=== PATIENT | female | born 1990 | race African-American/Black ===

== ENCOUNTER 2018-01-27 11:14 | Emergency (ER) | payer MEDICAID ==
[~2018-01-27] VITALS: Ht 160 cm; Wt 163.3 kg
[~2018-01-27 11:14] MED LIST: IBUPROFEN600 MG ORAL; KEFLEX500 MG ORAL; NKM
[2018-01-27 11:24] VITALS: BP 124/71
[2018-01-27] MEDS ORDERED: Lidocaine 1% MPF 10mg/ml 5ml INJ ONE (12:15)
[2018-01-27] MEDS ORDERED: DOXYCYCLINE MO100 MG ORAL (13:14)
[2018-01-27 13:21] VITALS: BP 120/68
--- NOTE | 2018-01-28 14:19 | Emergency Room Report ---
History of Present Illness General Chief Complaint: General Complaint Source: Patient Present Illness HPI Patient is a 27-year-old female who presented after increased vaginal discharge and leg rash. Patient reported having increased symptoms after recent sexual partner had been diagnosed with herpes. Patient states that she had been having increased discomfort with intercourse. She denies any genital lesions. She states that she had been having increased vaginal discharge. She denies any fever. Allergies: Coded Allergies: No Known Allergies (Unverified , 04/15/14) Patient History Past Medical History: see triage record Past Surgical History: unable to obtain Review of Systems All Other Systems: negative except mentioned in HPI Physical Exam Vital Signs Date Time Temp Pulse Resp B/P (MAP) Pulse Ox O2 Delivery O2 Flow Rate FiO2 01/27/18 11:21 97.8 95 20 124/71 100 Room Air 97.9 General Appearance: well appearing, no apparent distress, alert, GCS 15, obese Head: normocephalic, atraumatic ENT: hearing grossly normal, normal voice Neck: full range of motion, supple Respiratory: no respiratory distress, no accessory muscle use, speaking full sentences Cardiovascular #1: normal inspection, normal peripheral pulses, regular rate, rhythm Gastrointestinal: normal inspection Musculoskeletal: no calf tenderness Neurologic: normal inspection, alert, oriented x3, responsive, normal gait Psychiatric: mood/affect normal Skin: other - approximately 1 cm left leg ulcer without erythema or discharge. Medical Decision Making Diagnostic Impression: Primary Impression: Vaginal discharge ER Course The patient presented for vaginal discharge. Differential diagnosis included was not limited to a yeast infection, physiologic discharge, bacterial vaginosis , gonorrhea, Chlamydia, among others. Urine test was negative. Patient was empirically treated for gonorrhea. The patient is advised to follow up with primary care doctor in 1-2 days and have the patient STD testing. Patient is advised to return if any worsening condition or if any changes in status that are concerning. 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 Labs Test 01/27/18 12:45 Urine HCG, Qualitative Negative (NEGATIVE) Last Vital Signs Date Time Temp Pulse Resp B/P (MAP) Pulse Ox O2 Delivery O2 Flow Rate FiO2 01/27/18 13:21 97.9 90 20 120/68 100 Room Air 97.9 Status: improved Disposition: HOME, SELF-CARE Condition: Stable Scripts Doxycycline Monohydrate* (DOXYCYCLINE MONOHYDRATE*) 100 Mg Capsule 100 MG ORAL TWICE A DAY, #14 CAP 0 Refills Prov: Leif Mohamud 01/27/18 Patient Instructions: Skin Ulcer Leif Mohamud Jan 28, 2018 14:19
== END 2018-01-27 13:21 | disposition home or self-care (01) ==
LOC: EMR 11:55
DX: N89.8 Other specified noninflammatory disorders of vagina (principal)
CPT/HCPCS: 81025; 96372; 99283; J0696

== ENCOUNTER 2018-03-13 17:46 | Emergency (ER) | payer MEDICAID ==
[~2018-03-13] VITALS: Ht 167.6 cm; Wt 127.0 kg
[~2018-03-13 17:46] MED LIST changes: +DOXYCYCLINE MO100 MG ORAL
[2018-03-13 18:23] VITALS: BP 134/67
[2018-03-13] MEDS ORDERED: TRUFORM COMPRE1 EACH MC (18:27)
[2018-03-13 18:34] VITALS: BP 134/67
--- NOTE | 2018-03-15 07:46 | Emergency Room Report ---
History of Present Illness General Chief Complaint: General Complaint Source: Patient Present Illness HPI 27-year-old female presents ED for evaluation. Patient complaining of intermittent swelling to her legs for the last several months. Denies any swelling at this time. Denies any pain. Denies any fevers or chills. Denies chest pain or shortness of breath. Patient states she does not have a PMD at this time. No other aggravating relieving factors. Denies any other associated symptoms. Allergies: Coded Allergies: No Known Allergies (Unverified , 04/15/14) Patient History Past Medical History: none Past Surgical History: none Pertinent Family History: none Social History: Denies: smoking, alcohol use, drug use Last Menstrual Period: on period Now: No Immunizations: UTD Reviewed Nursing Documentation: PMH: Agreed; PSxH: Agreed Nursing Documentation-PMH Past Medical History: No Stated History Review of Systems All Other Systems: negative except mentioned in HPI Physical Exam Vital Signs Date Time Temp Pulse Resp B/P (MAP) Pulse Ox O2 Delivery O2 Flow Rate FiO2 03/13/18 17:57 97.8 92 16 134/67 100 Room Air 97.9 Sp02 EP Interpretation: reviewed, normal General Appearance: no apparent distress, alert, GCS 15, non-toxic, obese Head: normocephalic, atraumatic Eyes: bilateral eye normal inspection, bilateral eye PERRL ENT: hearing grossly normal, normal pharynx, no angioedema, normal voice Neck: full range of motion, supple/symm/no masses Respiratory: chest non-tender, lungs clear, normal breath sounds, speaking full sentences Cardiovascular #1: regular rate, rhythm, no edema Cardiovascular #2: 2+ carotid (R), 2+ carotid (L), 2+ radial (R), 2+ radial (L) , 2+ dorsalis pedis (R), 2+ dorsalis pedis (L) Gastrointestinal: normal bowel sounds, non tender, soft, non-distended, no guarding, no rebound Rectal: deferred Genitourinary: normal inspection, no CVA tenderness Musculoskeletal: back normal, gait/station normal, normal range of motion, non- tender Neurologic: alert, oriented x3, responsive, motor strength/tone normal, sensory intact, speech normal Psychiatric: judgement/insight normal, memory normal, mood/affect normal, no suicidal/homicidal ideation Reflexes: 3+ bicep (R), 3+ bicep (L), 3+ tricep (R), 3+ tricep (L), 3+ knee (R) , 3+ knee (L) Skin: normal color, no rash, warm/dry, well hydrated Lymphatic: no adenopathy Medical Decision Making Diagnostic Impression: Primary Impression: Pedal edema ER Course Hospital Course 27-year-old female presents ED complaining of intermittent swelling to her bilateral legs for months Differential diagnoses include: Cellulitis, dermatitis, insect bite, abscess Clinical course Patient placed on stretcher. After initial history, physical exam reveals a young female in no acute distress. Patient is morbidly obese. On exam there is no obvious swelling however difficult ascertain given patient's body habitus. There is no calf swelling. No evidence of cellulitis. Patient remains asymptomatic. No chest pain or shortness of breath. Stable vitals. I discussed the importance of weight loss with the patient. Explained that her pedal edema is likely related to her morbid obesity and with weight loss the symptoms should resolve. I'll prescribe impression stockings in the meanwhile. Recommend elevating the legs at the end of her day Patient states she will work to obtain a PMD this week Diagnosis - pedal edema stable and discharged to home with prescription for compression stockings. Instructed to followup with PMD. Instructed return to ED if symptoms recur or worsen Last Vital Signs Date Time Temp Pulse Resp B/P (MAP) Pulse Ox O2 Delivery O2 Flow Rate FiO2 03/13/18 18:34 97.9 92 16 134/67 100 Room Air 97.9 Status: improved Disposition: HOME, SELF-CARE Condition: Stable Scripts Comp.stocking,Knee,Regular,Lrg (TRUFORM COMPRESSION STOCKING) 1 Each Each EACH , #2 Prov: Julien Salmeron MD 03/13/18 Referrals: NOT CHOSEN IPA/,REFERRING (PCP) Patient Instructions: Edema, [id number] Julien Salmeron MD March 15, 2018 07:46
== END 2018-03-13 18:40 | disposition home or self-care (01) ==
LOC: EMR 18:23
DX: R60.0 Localized edema (principal)
CPT/HCPCS: 99283

== ENCOUNTER 2018-07-30 21:05 | Inpatient (IN) | payer MEDICAID ==
[~2018-07-30] VITALS: Ht 157.5 cm; Wt 179.0 kg
[~2018-07-30 21:05] MED LIST changes: +TRUFORM COMPRE1 EACH MC
[2018-07-30 21:15] VITALS: BP 121/73
--- NOTE | 2018-07-30 21:20 | Emergency Room Report ---
History of Present Illness General Chief Complaint: Chest Pain Source: Patient Present Illness HPI Patient is a 27-year-old female who presented after increased chest discomfort. Patient reports having increased cough and difficulty breathing. The patient reports having had ingested and edible marijuana approximately 3:00 in the afternoon. She reports having increased difficulty breathing. She not been having any fever. Had gradual onset of symptoms. Patient denies any abdominal pain or medication use. Allergies: Coded Allergies: No Known Allergies (Unverified , 07/30/18) Patient History Last Menstrual Period: unk Reviewed Nursing Documentation: PMH: Agreed; PSxH: Agreed Review of Systems All Other Systems: negative except mentioned in HPI Physical Exam Vital Signs Date Time Temp Pulse Resp B/P (MAP) Pulse Ox O2 Delivery O2 Flow Rate FiO2 07/30/18 21:13 98.3 144 29 121/73 94 Room Air 98.2 General Appearance: alert, GCS 15, obese, Chronically Ill ENT: hearing grossly normal, normal pharynx, no angioedema Neck: full range of motion, supple Respiratory: lungs clear, normal breath sounds, no rhonchi Cardiovascular #1: tachycardia Gastrointestinal: normal inspection, non tender, soft Musculoskeletal: normal inspection Neurologic: normal inspection, alert, oriented x3, responsive Medical Decision Making Diagnostic Impression: Primary Impression: Chest pain Additional Impression: Anemia ER Course Patient presented for chest pain. Differential diagnosis included but was not limited to acute coronary syndrome, pulmonary embolism, pneumonia, aortic dissection, shingles, pneumothorax, aortic dissection, esophageal rupture, pericarditis. Because of complexity of patient's case laboratory testing and imaging studies were ordered.The patient's initial laboratory testing appears to be have abnormal. Patient was noted to be tachycardic. a CT imaging cannot be performed. EKG showed sinus tachycardia with a rate of [address] changes. The patient's initial troponin was noted be slightly elevated. She was given aspirin.Dr. Sutherland was contacted for inpatient management due to complexity of medical condition. Labs Test 07/30/18 21:50 White Blood Count 11.7 K/UL (4.8-10.8) Red Blood Count 5.42 M/UL (4.20-5.40) Hemoglobin 8.0 G/DL (12.0-16.0) Hematocrit 29.7 % (37.0-47.0) Mean Corpuscular Volume 55 FL (80-99) Mean Corpuscular Hemoglobin 14.8 PG (27.0-31.0) Mean Corpuscular Hemoglobin Concent 26.9 G/DL (32.0-36.0) Red Cell Distribution Width 15.2 % (11.6-14.8) Platelet Count 289 K/UL (150-450) Mean Platelet Volume 8.6 FL (6.5-10.1) Neutrophils (%) (Auto) 58.3 % (45.0-75.0) Lymphocytes (%) (Auto) 32.2 % (20.0-45.0) Monocytes (%) (Auto) 6.6 % (1.0-10.0) Eosinophils (%) (Auto) 2.0 % (0.0-3.0) Basophils (%) (Auto) 0.9 % (0.0-2.0) D-Dimer 3.14 mg/L FEU (0.00-0.49) Sodium Level 148 MMOL/L (136-145) Potassium Level 2.1 MMOL/L (3.5-5.1) Chloride Level 122 MMOL/L (98-107) Carbon Dioxide Level 15 MMOL/L (21-32) Anion Gap 11 mmol/L (5-15) Blood Urea Nitrogen 7 mg/dL (7-18) Creatinine 0.4 MG/DL (0.55-1.30) Estimat Glomerular Filtration Rate > 60 mL/min (>60) Glucose Level 61 MG/DL (74-106) Calcium Level 4.9 MG/DL (8.5-10.1) Total Bilirubin 0.3 MG/DL (0.2-1.0) Aspartate Amino Transf (AST/SGOT) 16 U/L (15-37) Alanine Aminotransferase (ALT/SGPT) 12 U/L (12-78) Alkaline Phosphatase 41 U/L (46-116) Total Creatine Kinase 103 U/L (26-308) Creatine Kinase MB < 0.5 NG/ML (0.0-3.6) Creatine Kinase MB Relative Index 0.4 Troponin I 0.248 ng/mL (0.000-0.056) Pro-B-Type Natriuretic Peptide 102 pg/mL (0-125) Total Protein 4.4 G/DL (6.4-8.2) Albumin 1.4 G/DL (3.4-5.0) Globulin 3.0 g/dL Albumin/Globulin Ratio 0.5 (1.0-2.7) Lipase 71 U/L (73-393) EKG Diagnostic Results Rate: tachycardiac - 145 Rhythm: NSR ST Segments: no acute changes ASA given to the pt in ED: No Rhythm Strip Diag. Results EP Interpretation: yes Rhythm: NSR - tahcycardic, no PVC's, no ectopy Last Vital Signs Date Time Temp Pulse Resp B/P (MAP) Pulse Ox O2 Delivery O2 Flow Rate FiO2 07/30/18 21:13 98.3 144 29 121/73 94 Room Air 98.2 Leif Mohamud MD Jul 30, 2018 21:20
[2018-07-30 22:03] LABS: BASOPHILS % (AUTO) 0.9 % (0.0-2.0); HEMATOCRIT 29.7 % (37.0-47.0); LYMPHOCYTES % (AUTO) 32.2 % (20.0-45.0); MEAN CORPUSCULAR VOLUME 55 FL (80-99); MONOCYTES % (AUTO) 6.6 % (1.0-10.0); NEUTROPHILS % (AUTO) 58.3 % (45.0-75.0); PLATELET COUNT 289 K/UL (150-450); RED BLOOD COUNT 5.42 M/UL (4.20-5.40); RED CELL DISTRIBUTION WIDTH 15.2 % (11.6-14.8); WHITE BLOOD COUNT 11.7 K/UL (4.8-10.8)
[2018-07-30 22:40] LABS: ALANINE AMINOTRANSFERASE 12 U/L (12-78); ALBUMIN 1.4 G/DL (3.4-5.0); ALBUMIN/GLOBULIN RATIO 0.5 (1.0-2.7); ALKALINE PHOSPHATASE 41 U/L (46-116); ANION GAP 11 mmol/L (5-15); ASPARTATE AMINO TRANSFERASE 16 U/L (15-37); BILIRUBIN,TOTAL 0.3 MG/DL (0.2-1.0); BLOOD UREA NITROGEN 7 mg/dL (7-18); CARBON DIOXIDE 15 MMOL/L (21-32); CHLORIDE 122 MMOL/L (98-107); CKMB < 0.5 NG/ML (0.0-3.6); CREATINE KINASE 103 U/L (26-308); CREATININE 0.4 MG/DL (0.55-1.30); SODIUM 148 MMOL/L (136-145)
[2018-07-30 22:52] LABS: POTASSIUM 2.1 MMOL/L (3.5-5.1)
[2018-07-30 22:53] LABS: CALCIUM 4.9 MG/DL (8.5-10.1)
[2018-07-31 00:06] LABS: EOSINOPHILS % (AUTO) 1.9 % (0.0-3.0); MEAN CORPUSCULAR VOLUME 54 FL (80-99); MONOCYTES % (AUTO) 6.5 % (1.0-10.0); NEUTROPHILS % (AUTO) 62.6 % (45.0-75.0); PLATELET COUNT 283 K/UL (150-450); RED BLOOD COUNT 5.37 M/UL (4.20-5.40); RED CELL DISTRIBUTION WIDTH 15.1 % (11.6-14.8); WHITE BLOOD COUNT 9.6 K/UL (4.8-10.8)
[2018-07-31] MEDS ORDERED: Aspirin Baby 81mg ORAL ONE (00:30)
[2018-07-31 01:58] LABS: ANION GAP 8 mmol/L (5-15); BLOOD UREA NITROGEN 12 mg/dL (7-18); CALCIUM 8.6 MG/DL (8.5-10.1); CARBON DIOXIDE 25 MMOL/L (21-32); CHLORIDE 106 MMOL/L (98-107); CREATININE 0.9 MG/DL (0.55-1.30); POTASSIUM 4.2 MMOL/L (3.5-5.1); SODIUM 139 MMOL/L (136-145)
[2018-07-31 02:00] VITALS: BP 100/61
[2018-07-31 02:03] LABS: ALANINE AMINOTRANSFERASE 27 U/L (12-78); ALBUMIN 2.8 G/DL (3.4-5.0); ALBUMIN/GLOBULIN RATIO 0.5 (1.0-2.7); ALKALINE PHOSPHATASE 82 U/L (46-116); ASPARTATE AMINO TRANSFERASE 34 U/L (15-37); BILIRUBIN,TOTAL 0.5 MG/DL (0.2-1.0)
[2018-07-31] MEDS ORDERED: LR 1000ml 1,000 ML IV SCH (02:15)
[2018-07-31] MEDS ORDERED: Aspirin Baby 81mg ONE (02:33)
[2018-07-31 03:12] LABS: BILIRUBIN, URINE NEGATIVE (NEGATIVE); GLUCOSE, URINE (UA) NEGATIVE (NEGATIVE); KETONES,URINE NEGATIVE (NEGATIVE); LEUKOCYTE ESTERASE ,URINE 1+ (NEGATIVE); NITRITE,URINE NEGATIVE (NEGATIVE); PH,URINE 6 (4.5-8.0); PROTEIN,URINE 2+ (NEGATIVE); UROBILINOGEN,URINE NORMAL MG/DL (0.0-1.0)
[2018-07-31 03:34] LABS: COLOR,URINE YELLOW
[2018-07-31 03:35] LABS: APPEARANCE,URINE SLIGHTLY CLOUDY
[2018-07-31] MEDS ORDERED: Albuterol/Ipratropium 3ml neb HHN PRN (05:15)
[2018-07-31] MEDS ORDERED: Miralax 17gm pkt ORAL PRN (05:15)
[2018-07-31 08:00] VITALS: BP 111/63
[2018-07-31] MEDS: Docusate 100mg cap ORAL SCH ×2 (08:46→21:22)
[2018-07-31] MEDS: Aspirin Baby 81mg ORAL SCH (08:46)
[2018-07-31] MEDS: Heparin 5000 units/ml inj SUBQ SCH ×2 (08:48→21:24)
[2018-07-31 09:06] LABS: HEMATOCRIT 27.7 % (37.0-47.0); HEMOGLOBIN 7.6 G/DL (12.0-16.0); MEAN CORPUSCULAR VOLUME 55 FL (80-99); PLATELET COUNT 274 K/UL (150-450); RED BLOOD COUNT 5.06 M/UL (4.20-5.40); RED CELL DISTRIBUTION WIDTH 15.3 % (11.6-14.8); WHITE BLOOD COUNT 9.5 K/UL (4.8-10.8)
--- NOTE | 2018-07-31 09:17 | History and Physical ---
History of Present Illness General Date patient seen: Jul 31, 2018 Time patient seen: 09:17 Reason for Hospitalization: Chest Pain, SOB Present Illness HPI 27 y/o female with pmh of morbid obesity who presents with chest pain and SOB. Ptc/o substernal chest pain radiating to back with associated shortness of breath, worse w/ activity over the past few days. Denies orthopnea, PND. Notes increased BLE swelling and weight gain. Notes increased cough. Denies f/c, n/v, d/c, abd pain. Pt states she ingests edible marijuana yesterday. At baseline pt ambulates independently PMH: morbid obesity, does not have PCP PSH: denies FMH: heart disease in mother SH: lives w/ sister in car Allergies: Coded Allergies: No Known Allergies (Unverified , 07/30/18) Medication History Scheduled Cephalexin* (Keflex*), 500 MG ORAL Q6H Doxycycline Monohydrate* (Doxycycline Monohydrate*), 100 MG ORAL TWICE A DAY No Known Medications* (NKM - No Known Medications*), 0 ., (Reported) Scheduled PRN Ibuprofen* (Motrin*), 600 MG ORAL Q8H PRN for For Pain Durable Medical Equipment Comp.stocking,Knee,Regular,Lrg (Truform Compression Stocking), EACH [facility], (DME) Patient History History Provided By: Patient, Medical Record Healthcare decision maker Resuscitation status Full Code Advanced Directive on File No Review of Systems Constitutional: Reports: no symptoms Eye: Reports: no symptoms ENT: Reports: no symptoms Respiratory: Reports: cough, shortness of breath Cardiovascular: Reports: chest pain, edema Gastrointestinal: Reports: no symptoms Genitourinary: Reports: no symptoms Musculoskeletal: Reports: no symptoms Skin: Reports: no symptoms Psychiatric: Reports: no symptoms Neurological: Reports: no symptoms Endocrine: Reports: no symptoms Hematologic/Lymphatic: Reports: no symptoms Physical Exam Physical Exam Narrative General: alert, cooperative, no distress, appears stated age, morbid obesity Head: normocephalic, without obvious abnormality, atraumatic Eyes: conjunctivae/corneas clear. PERRL, EOM's intact Throat: lips, mucosa, and tongue normal. MMM Neck: supple, symmetrical, trachea midline, and no JVD Lungs: clear to auscultation bilaterally Heart: tachycardic, regular rhythm, S1, S2 normal, no murmur, click, rub or gallop Abdomen: soft, non-tender, non-distended, bowel sounds normal; no masses or organomegaly Extremities: extremities normal, atraumatic, no cyanosis, +BLE edema Pulses: 2+ and symmetric Skin: skin color, texture, turgor normal; no rashes or lesions Neurologic: grossly normal, no focal deficits Last 24 Hour Vital Signs Date Time Temp Pulse Resp B/P (MAP) Pulse Ox O2 Delivery O2 Flow Rate FiO2 07/31/18 08:00 97.7 115 22 111/63 (79) 100 97.7 07/31/18 06:59 115 20 Nasal Cannula 2.0 99 07/31/18 06:58 Nasal Cannula 2.0 28 07/31/18 06:58 99 Nasal Cannula 2.0 28 07/31/18 04:39 Nasal Cannula 2.0 07/31/18 04:15 98.1 128 24 104/67 98 Nasal Cannula 2.0 99 98.1 07/31/18 02:00 98.1 128 24 100/61 94 Nasal Cannula 2.0 99 98.1 07/30/18 22:05 142 29 Nasal Cannula 2.0 99 07/30/18 21:15 98.3 143 28 121/73 94 Room Air 98.3 07/30/18 21:13 98.3 144 29 121/73 94 Room Air 98.2 Intake and Output 07/30/18 07/31/18 19:00 07:00 Intake Total 1100 ml Output Total 300 ml Balance 800 ml Intake Oral 100 ml IV Total 1000 ml Output Urine Total 300 ml # Voids 1 Laboratory Tests Test 07/30/18 11:45 07/30/18 21:50 07/30/18 23:45 07/31/18 01:25 White Blood Count 9.6 K/UL (4.8-10.8) 11.7 K/UL (4.8-10.8) H Red Blood Count 5.37 M/UL (4.20-5.40) 5.42 M/UL (4.20-5.40) H Hemoglobin 8.0 G/DL (12.0-16.0) L 8.0 G/DL (12.0-16.0) L Hematocrit 29.0 % (37.0-47.0) L 29.7 % (37.0-47.0) L Mean Corpuscular Volume 54 FL (80-99) L 55 FL (80-99) L Mean Corpuscular Hemoglobin 15.0 PG (27.0-31.0) L 14.8 PG (27.0-31.0) L Mean Corpuscular Hemoglobin Concent 27.7 G/DL (32.0-36.0) L 26.9 G/DL (32.0-36.0) L Red Cell Distribution Width 15.1 % (11.6-14.8) H 15.2 % (11.6-14.8) H Platelet Count 283 K/UL (150-450) 289 K/UL (150-450) Mean Platelet Volume 5.9 FL (6.5-10.1) L 8.6 FL (6.5-10.1) Neutrophils (%) (Auto) 62.6 % (45.0-75.0) 58.3 % (45.0-75.0) Lymphocytes (%) (Auto) 28.0 % (20.0-45.0) 32.2 % (20.0-45.0) Monocytes (%) (Auto) 6.5 % (1.0-10.0) 6.6 % (1.0-10.0) Eosinophils (%) (Auto) 1.9 % (0.0-3.0) 2.0 % (0.0-3.0) Basophils (%) (Auto) 1.0 % (0.0-2.0) 0.9 % (0.0-2.0) D-Dimer 3.14 mg/L FEU (0.00-0.49) H Sodium Level 148 MMOL/L (136-145) H 139 MMOL/L (136-145) Potassium Level 2.1 MMOL/L (3.5-5.1) *L 4.2 MMOL/L (3.5-5.1) # Chloride Level 122 MMOL/L (98-107) H 106 MMOL/L (98-107) Carbon Dioxide Level 15 MMOL/L (21-32) L 25 MMOL/L (21-32) Anion Gap 11 mmol/L (5-15) 8 mmol/L (5-15) Blood Urea Nitrogen 7 mg/dL (7-18) 12 mg/dL (7-18) Creatinine 0.4 MG/DL (0.55-1.30) L 0.9 MG/DL (0.55-1.30) # Estimat Glomerular Filtration Rate > 60 mL/min (>60) > 60 mL/min (>60) Glucose Level 61 MG/DL (74-106) L 109 MG/DL (74-106) H Calcium Level 4.9 MG/DL (8.5-10.1) *L 8.6 MG/DL (8.5-10.1) # Total Bilirubin 0.3 MG/DL (0.2-1.0) 0.5 MG/DL (0.2-1.0) Aspartate Amino Transf (AST/SGOT) 16 U/L (15-37) 34 U/L (15-37) Alanine Aminotransferase (ALT/SGPT) 12 U/L (12-78) 27 U/L (12-78) Alkaline Phosphatase 41 U/L (46-116) L 82 U/L (46-116) Total Creatine Kinase 103 U/L (26-308) Creatine Kinase MB < 0.5 NG/ML (0.0-3.6) Creatine Kinase MB Relative Index 0.4 Troponin I 0.248 ng/mL (0.000-0.056) Pro-B-Type Natriuretic Peptide 102 pg/mL (0-125) Total Protein 4.4 G/DL (6.4-8.2) L 8.2 G/DL (6.4-8.2) # Albumin 1.4 G/DL (3.4-5.0) L 2.8 G/DL (3.4-5.0) L Globulin 3.0 g/dL 5.4 g/dL Albumin/Globulin Ratio 0.5 (1.0-2.7) L 0.5 (1.0-2.7) L Lipase 71 U/L (73-393) L Urine Color Yellow Urine Appearance Slightly cloudy Urine pH 6 (4.5-8.0) Urine Specific [place] 1.020 (1.005-1.035) Urine Protein 2+ (NEGATIVE) H Urine Glucose (UA) Negative (NEGATIVE) Urine Ketones Negative (NEGATIVE) Urine Blood 5+ (NEGATIVE) H Urine Nitrite Negative (NEGATIVE) Urine Bilirubin Negative (NEGATIVE) Urine Urobilinogen Normal MG/DL (0.0-1.0) Urine Leukocyte Esterase 1+ (NEGATIVE) H Urine RBC Tntc /HPF (0 - 2) H Urine WBC 0-2 /HPF (0 - 2) Urine Squamous Epithelial Cells Moderate /LPF (NONE/OCC) H Urine Bacteria Few /HPF (NONE) Urine HCG, Qualitative Negative (NEGATIVE) Test 07/31/18 08:15 White Blood Count Pending Red Blood Count Pending Hemoglobin Pending Hematocrit Pending Mean Corpuscular Volume Pending Mean Corpuscular Hemoglobin Pending Mean Corpuscular Hemoglobin Concent Pending Red Cell Distribution Width Pending Platelet Count Pending Mean Platelet Volume Pending Neutrophils (%) (Auto) Pending Lymphocytes (%) (Auto) Pending Monocytes (%) (Auto) Pending Eosinophils (%) (Auto) Pending Basophils (%) (Auto) Pending Sodium Level Pending Potassium Level Pending Chloride Level Pending Carbon Dioxide Level Pending Blood Urea Nitrogen Pending Creatinine Pending Estimat Glomerular Filtration Rate Pending Glucose Level Pending Hemoglobin A1c Pending Calcium Level Pending Magnesium Level Pending Troponin I Pending Triglycerides Level Pending Cholesterol Level Pending LDL Cholesterol Pending HDL Cholesterol Pending Cholesterol/HDL Ratio Pending Thyroid Stimulating Hormone (TSH) Pending Height (Feet): 5 Height (Inches): 2.00 Weight (Pounds): 320 Medications Current Medications Medications (Trade) Dose Ordered Sig/Destini Route PRN Reason Start Time Stop Time Status Last Admin Dose Admin Acetaminophen (Tylenol) 650 mg Q4H PRN ORAL Mild Pain (Pain Scale 1-3) 07/31/18 05:15 08/30/18 05:14 Acetaminophen (Tylenol) 650 mg Q4H PRN ORAL fever 07/31/18 05:15 08/30/18 05:14 Albuterol/ Ipratropium (Albuterol/ Ipratropium) 3 ml Q4H PRN HHN Shortness of Breath 07/31/18 05:15 08/05/18 05:14 Aspirin (ASA) 81 mg DAILY ORAL 07/31/18 09:00 08/30/18 08:59 07/31/18 08:46 Bisacodyl (Dulcolax) 10 mg DAILYPRN PRN RECTAL Constipation 07/31/18 05:15 08/30/18 05:14 Dextrose (Dextrose 50%) 25 ml STAT PRN IV Hypoglycemia 07/31/18 05:15 08/30/18 05:14 Dextrose (Dextrose 50%) 50 ml STAT PRN IV Hypoglycemia 07/31/18 05:15 08/30/18 05:14 Docusate Sodium (Colace) 100 mg EVERY 12 HOURS ORAL 07/31/18 09:00 08/30/18 08:59 07/31/18 08:46 Heparin Sodium (Porcine) (Heparin 5000 units/ml) 5,000 units EVERY 12 HOURS SUBQ 07/31/18 09:00 08/30/18 08:59 07/31/18 08:48 Ondansetron HCl (Zofran) 4 mg Q6H PRN IVP Nausea & Vomiting 07/31/18 05:15 08/30/18 05:14 Polyethylene Glycol (Miralax) 17 gm DAILYPRN PRN ORAL Constipation 07/31/18 05:15 08/30/18 05:14 Assessment/Plan Status: stable Assessment/Plan # Atypical chest pain - risk factor of morbid obesity, r/o ACS given elevated troponin - Cardiology consulted - Trend trop/EKG - Check TTE - Check lipid panel, A1C, TSH - ASA 81mg daily - Tele # Shortness of breath - elevated d-dimer, r/o DVT/PE - Pulmonology consulted - Check CT angio chest - Check BLE venous duplex # Severe anemia - Heme/onc consult - Check iron panel, ferritin, B12/folate, retic, FOBT - CT c/a/p to r/o malignancy # Morbid obesity - [employer]ile [employer] on weight loss Dispo: SW consult as pt living in car w/ sister DVT Prophylaxis: HSQ Code Status: Full Hospital Classification Declaration: Based on this initial evaluation, and depending on the patient's clinical course, I anticipate that this patient will require hospitalization for 2-3 days for chest pain, SOB, severe anemia, and close respiratory/hemodynamic monitoring. Disposition: Once the patient is stable to leave the hospital, I anticipate the patient will likely be discharged to the following environment: home I spent 72 minutes on this patient's case, and 38 minutes were dedicated to counseling and/or care coordination. Discussed with patient/family, nursing staff, SW/ADRY,cardiology, pulmonology regarding clinical status, treatment course , and disposition planning. Time of note may not reflect time of encounter. Kwan Thakur M.D. Jul 31, 2018 09:17
--- NOTE | 2018-07-31 10:03 | Diagnostic Imaging Report ---
Indication: Chest pain Technique: One view of the chest Comparison: none Findings: Body habitus limits evaluation. Lungs and pleural spaces are grossly clear. The heart size is normal Impression: Negative
[2018-07-31 11:22] LABS: % IRON SATURATION 5 % (15-50); IRON 16 ug/dL (50-175); TOTAL IRON BINDING CAPACITY 325 ug/dL (250-450)
[2018-07-31 11:35] LABS: FERRITIN 11 NG/ML (8-388)
[2018-07-31 11:57] LABS: ANION GAP 8 mmol/L (5-15); BLOOD UREA NITROGEN 12 mg/dL (7-18); CALCIUM 8.4 MG/DL (8.5-10.1); CARBON DIOXIDE 26 MMOL/L (21-32); CHLORIDE 106 MMOL/L (98-107); CHOLESTEROL 102 MG/DL (< 200); CREATININE 0.8 MG/DL (0.55-1.30); HDL CHOLESTEROL 38 MG/DL (40-60); POTASSIUM 3.9 MMOL/L (3.5-5.1); SODIUM 139 MMOL/L (136-145); TRIGLYCERIDES 47 MG/DL (30-150)
[2018-07-31 12:00] VITALS: BP 119/69
--- NOTE | 2018-07-31 14:39 | Cardiac Electrophysiology PN ---
Subjective Subjective [id number] Objective Last 24 Hour Vital Signs Date Time Temp Pulse Resp B/P (MAP) Pulse Ox O2 Delivery O2 Flow Rate FiO2 07/31/18 12:00 118 07/31/18 12:00 96.4 116 22 119/69 (86) 100 96.4 07/31/18 09:00 Nasal Cannula 3.0 07/31/18 08:00 97.7 115 22 111/63 (79) 100 97.7 07/31/18 08:00 112 07/31/18 06:59 115 20 Nasal Cannula 2.0 99 07/31/18 06:58 Nasal Cannula 2.0 28 07/31/18 06:58 99 Nasal Cannula 2.0 28 07/31/18 04:39 Nasal Cannula 2.0 07/31/18 04:15 98.1 128 24 104/67 98 Nasal Cannula 2.0 99 98.1 07/31/18 02:00 98.1 128 24 100/61 94 Nasal Cannula 2.0 99 98.1 07/30/18 22:05 142 29 Nasal Cannula 2.0 99 07/30/18 21:15 98.3 143 28 121/73 94 Room Air 98.3 07/30/18 21:13 98.3 144 29 121/73 94 Room Air 98.2 Intake and Output 07/30/18 07/31/18 19:00 07:00 Intake Total 1100 ml Output Total 300 ml Balance 800 ml Intake Oral 100 ml IV Total 1000 ml Output Urine Total 300 ml # Voids 1 Laboratory Tests Test 07/30/18 21:50 07/30/18 23:45 07/31/18 01:25 07/31/18 08:15 White Blood Count 11.7 K/UL (4.8-10.8) H 9.5 K/UL (4.8-10.8) Red Blood Count 5.42 M/UL (4.20-5.40) H 5.06 M/UL (4.20-5.40) Hemoglobin 8.0 G/DL (12.0-16.0) L 7.6 G/DL (12.0-16.0) L Hematocrit 29.7 % (37.0-47.0) L 27.7 % (37.0-47.0) L Mean Corpuscular Volume 55 FL (80-99) L 55 FL (80-99) L Mean Corpuscular Hemoglobin 14.8 PG (27.0-31.0) L 15.1 PG (27.0-31.0) L Mean Corpuscular Hemoglobin Concent 26.9 G/DL (32.0-36.0) L 27.5 G/DL (32.0-36.0) L Red Cell Distribution Width 15.2 % (11.6-14.8) H 15.3 % (11.6-14.8) H Platelet Count 289 K/UL (150-450) 274 K/UL (150-450) Mean Platelet Volume 8.6 FL (6.5-10.1) 6.0 FL (6.5-10.1) L Neutrophils (%) (Auto) 58.3 % (45.0-75.0) % (45.0-75.0) Lymphocytes (%) (Auto) 32.2 % (20.0-45.0) % (20.0-45.0) Monocytes (%) (Auto) 6.6 % (1.0-10.0) % (1.0-10.0) Eosinophils (%) (Auto) 2.0 % (0.0-3.0) % (0.0-3.0) Basophils (%) (Auto) 0.9 % (0.0-2.0) % (0.0-2.0) D-Dimer 3.14 mg/L FEU (0.00-0.49) H Sodium Level 148 MMOL/L (136-145) H 139 MMOL/L (136-145) 139 MMOL/L (136-145) Potassium Level 2.1 MMOL/L (3.5-5.1) *L 4.2 MMOL/L (3.5-5.1) # 3.9 MMOL/L (3.5-5.1) Chloride Level 122 MMOL/L (98-107) H 106 MMOL/L (98-107) 106 MMOL/L (98-107) Carbon Dioxide Level 15 MMOL/L (21-32) L 25 MMOL/L (21-32) 26 MMOL/L (21-32) Anion Gap 11 mmol/L (5-15) 8 mmol/L (5-15) 8 mmol/L (5-15) Blood Urea Nitrogen 7 mg/dL (7-18) 12 mg/dL (7-18) 12 mg/dL (7-18) Creatinine 0.4 MG/DL (0.55-1.30) L 0.9 MG/DL (0.55-1.30) # 0.8 MG/DL (0.55-1.30) Estimat Glomerular Filtration Rate > 60 mL/min (>60) > 60 mL/min (>60) > 60 mL/min (>60) Glucose Level 61 MG/DL (74-106) L 109 MG/DL (74-106) H 118 MG/DL (74-106) H Calcium Level 4.9 MG/DL (8.5-10.1) *L 8.6 MG/DL (8.5-10.1) # 8.4 MG/DL (8.5-10.1) L Total Bilirubin 0.3 MG/DL (0.2-1.0) 0.5 MG/DL (0.2-1.0) Aspartate Amino Transf (AST/SGOT) 16 U/L (15-37) 34 U/L (15-37) Alanine Aminotransferase (ALT/SGPT) 12 U/L (12-78) 27 U/L (12-78) Alkaline Phosphatase 41 U/L (46-116) L 82 U/L (46-116) Total Creatine Kinase 103 U/L (26-308) Creatine Kinase MB < 0.5 NG/ML (0.0-3.6) Creatine Kinase MB Relative Index 0.4 Troponin I 0.248 ng/mL (0.000-0.056) 0.171 ng/mL (0.000-0.056) Pro-B-Type Natriuretic Peptide 102 pg/mL (0-125) Total Protein 4.4 G/DL (6.4-8.2) L 8.2 G/DL (6.4-8.2) # Albumin 1.4 G/DL (3.4-5.0) L 2.8 G/DL (3.4-5.0) L Globulin 3.0 g/dL 5.4 g/dL Albumin/Globulin Ratio 0.5 (1.0-2.7) L 0.5 (1.0-2.7) L Lipase 71 U/L (73-393) L Urine Color Yellow Urine Appearance Slightly cloudy Urine pH 6 (4.5-8.0) Urine Specific [place] 1.020 (1.005-1.035) Urine Protein 2+ (NEGATIVE) H Urine Glucose (UA) Negative (NEGATIVE) Urine Ketones Negative (NEGATIVE) Urine Blood 5+ (NEGATIVE) H Urine Nitrite Negative (NEGATIVE) Urine Bilirubin Negative (NEGATIVE) Urine Urobilinogen Normal MG/DL (0.0-1.0) Urine Leukocyte Esterase 1+ (NEGATIVE) H Urine RBC Tntc /HPF (0 - 2) H Urine WBC 0-2 /HPF (0 - 2) Urine Squamous Epithelial Cells Moderate /LPF (NONE/OCC) H Urine Bacteria Few /HPF (NONE) Urine HCG, Qualitative Negative (NEGATIVE) Differential Total Cells Counted 100 Neutrophils % (Manual) 59 % (45-75) Lymphocytes % (Manual) 32 % (20-45) Monocytes % (Manual) 6 % (1-10) Eosinophils % (Manual) 3 % (0-3) Basophils % (Manual) 0 % (0-2) Band Neutrophils 0 % (0-8) Platelet Estimate Adequate Platelet Morphology Normal Polychromasia 1+ Hypochromasia 3+ Anisocytosis 1+ Microcytosis 2+ Hemoglobin A1c 5.7 % (4.3-6.0) Magnesium Level 1.7 MG/DL (1.8-2.4) L Iron Level 16 ug/dL (50-175) L Total Iron Binding Capacity 325 ug/dL (250-450) Percent Iron Saturation 5 % (15-50) L Unsaturated Iron Binding 309 ug/dL (112-346) Ferritin 11 NG/ML (8-388) Triglycerides Level 47 MG/DL (30-150) Cholesterol Level 102 MG/DL (< 200) LDL Cholesterol 62 mg/dL (<100) HDL Cholesterol 38 MG/DL (40-60) L Cholesterol/HDL Ratio 2.7 (3.3-4.4) L Thyroid Stimulating Hormone (TSH) 2.022 uiU/mL (0.358-3.740) Test 07/31/18 13:45 Troponin I 0.083 ng/mL (0.000-0.056) Bunny Arnett MD Jul 31, 2018 14:39
--- NOTE | 2018-07-31 14:57 | Consultation ---
History of Present Illness General Date patient seen: Jul 31, 2018 Chief Complaint: Chest Pain Present Illness HPI 27-year-old female who presented after increased chest discomfort. the pt stated that she never has a pain like this. the pain is mostly in her back and it improves when she moves to her side. the pt stated that when she breaths deeper the pain is worse. the pt stated that she does not experience any anxiety or depressive sxs. no si/hi. no insomnia Allergies: Coded Allergies: No Known Allergies (Unverified , 07/30/18) Medication History Scheduled Cephalexin* (Keflex*), 500 MG ORAL Q6H Doxycycline Monohydrate* (Doxycycline Monohydrate*), 100 MG ORAL TWICE A DAY No Known Medications* (NKM - No Known Medications*), 0 ., (Reported) Scheduled PRN Ibuprofen* (Motrin*), 600 MG ORAL Q8H PRN for For Pain Durable Medical Equipment Comp.stocking,Knee,Regular,Lrg (Truform Compression Stocking), EACH [facility], (DME) Patient History Limited by: medical condition History Provided By: Patient, Medical Record, PMD Healthcare decision maker Resuscitation status Full Code Advanced Directive on File No Past Medical/Surgical History Past Medical/Surgical History: (1) Pedal edema (2) Vaginal discharge (3) Anemia (4) Chest pain Review of Systems All Other Systems: negative except mentioned in HPI Physical Exam General Appearance: no apparent distress, alert, morbidly obese Last 24 Hour Vital Signs Date Time Temp Pulse Resp B/P (MAP) Pulse Ox O2 Delivery O2 Flow Rate FiO2 07/31/18 12:00 118 07/31/18 12:00 96.4 116 22 119/69 (86) 100 96.4 07/31/18 09:00 Nasal Cannula 3.0 07/31/18 08:00 97.7 115 22 111/63 (79) 100 97.7 07/31/18 08:00 112 07/31/18 06:59 115 20 Nasal Cannula 2.0 99 07/31/18 06:58 Nasal Cannula 2.0 28 07/31/18 06:58 99 Nasal Cannula 2.0 28 07/31/18 04:39 Nasal Cannula 2.0 07/31/18 04:15 98.1 128 24 104/67 98 Nasal Cannula 2.0 99 98.1 07/31/18 02:00 98.1 128 24 100/61 94 Nasal Cannula 2.0 99 98.1 07/30/18 22:05 142 29 Nasal Cannula 2.0 99 07/30/18 21:15 98.3 143 28 121/73 94 Room Air 98.3 07/30/18 21:13 98.3 144 29 121/73 94 Room Air 98.2 Intake and Output 07/30/18 07/31/18 19:00 07:00 Intake Total 1100 ml Output Total 300 ml Balance 800 ml Intake Oral 100 ml IV Total 1000 ml Output Urine Total 300 ml # Voids 1 Laboratory Tests Test 07/30/18 21:50 07/30/18 23:45 07/31/18 01:25 07/31/18 08:15 White Blood Count 11.7 K/UL (4.8-10.8) H 9.5 K/UL (4.8-10.8) Red Blood Count 5.42 M/UL (4.20-5.40) H 5.06 M/UL (4.20-5.40) Hemoglobin 8.0 G/DL (12.0-16.0) L 7.6 G/DL (12.0-16.0) L Hematocrit 29.7 % (37.0-47.0) L 27.7 % (37.0-47.0) L Mean Corpuscular Volume 55 FL (80-99) L 55 FL (80-99) L Mean Corpuscular Hemoglobin 14.8 PG (27.0-31.0) L 15.1 PG (27.0-31.0) L Mean Corpuscular Hemoglobin Concent 26.9 G/DL (32.0-36.0) L 27.5 G/DL (32.0-36.0) L Red Cell Distribution Width 15.2 % (11.6-14.8) H 15.3 % (11.6-14.8) H Platelet Count 289 K/UL (150-450) 274 K/UL (150-450) Mean Platelet Volume 8.6 FL (6.5-10.1) 6.0 FL (6.5-10.1) L Neutrophils (%) (Auto) 58.3 % (45.0-75.0) % (45.0-75.0) Lymphocytes (%) (Auto) 32.2 % (20.0-45.0) % (20.0-45.0) Monocytes (%) (Auto) 6.6 % (1.0-10.0) % (1.0-10.0) Eosinophils (%) (Auto) 2.0 % (0.0-3.0) % (0.0-3.0) Basophils (%) (Auto) 0.9 % (0.0-2.0) % (0.0-2.0) D-Dimer 3.14 mg/L FEU (0.00-0.49) H Sodium Level 148 MMOL/L (136-145) H 139 MMOL/L (136-145) 139 MMOL/L (136-145) Potassium Level 2.1 MMOL/L (3.5-5.1) *L 4.2 MMOL/L (3.5-5.1) # 3.9 MMOL/L (3.5-5.1) Chloride Level 122 MMOL/L (98-107) H 106 MMOL/L (98-107) 106 MMOL/L (98-107) Carbon Dioxide Level 15 MMOL/L (21-32) L 25 MMOL/L (21-32) 26 MMOL/L (21-32) Anion Gap 11 mmol/L (5-15) 8 mmol/L (5-15) 8 mmol/L (5-15) Blood Urea Nitrogen 7 mg/dL (7-18) 12 mg/dL (7-18) 12 mg/dL (7-18) Creatinine 0.4 MG/DL (0.55-1.30) L 0.9 MG/DL (0.55-1.30) # 0.8 MG/DL (0.55-1.30) Estimat Glomerular Filtration Rate > 60 mL/min (>60) > 60 mL/min (>60) > 60 mL/min (>60) Glucose Level 61 MG/DL (74-106) L 109 MG/DL (74-106) H 118 MG/DL (74-106) H Calcium Level 4.9 MG/DL (8.5-10.1) *L 8.6 MG/DL (8.5-10.1) # 8.4 MG/DL (8.5-10.1) L Total Bilirubin 0.3 MG/DL (0.2-1.0) 0.5 MG/DL (0.2-1.0) Aspartate Amino Transf (AST/SGOT) 16 U/L (15-37) 34 U/L (15-37) Alanine Aminotransferase (ALT/SGPT) 12 U/L (12-78) 27 U/L (12-78) Alkaline Phosphatase 41 U/L (46-116) L 82 U/L (46-116) Total Creatine Kinase 103 U/L (26-308) Creatine Kinase MB < 0.5 NG/ML (0.0-3.6) Creatine Kinase MB Relative Index 0.4 Troponin I 0.248 ng/mL (0.000-0.056) 0.171 ng/mL (0.000-0.056) Pro-B-Type Natriuretic Peptide 102 pg/mL (0-125) Total Protein 4.4 G/DL (6.4-8.2) L 8.2 G/DL (6.4-8.2) # Albumin 1.4 G/DL (3.4-5.0) L 2.8 G/DL (3.4-5.0) L Globulin 3.0 g/dL 5.4 g/dL Albumin/Globulin Ratio 0.5 (1.0-2.7) L 0.5 (1.0-2.7) L Lipase 71 U/L (73-393) L Urine Color Yellow Urine Appearance Slightly cloudy Urine pH 6 (4.5-8.0) Urine Specific [place] 1.020 (1.005-1.035) Urine Protein 2+ (NEGATIVE) H Urine Glucose (UA) Negative (NEGATIVE) Urine Ketones Negative (NEGATIVE) Urine Blood 5+ (NEGATIVE) H Urine Nitrite Negative (NEGATIVE) Urine Bilirubin Negative (NEGATIVE) Urine Urobilinogen Normal MG/DL (0.0-1.0) Urine Leukocyte Esterase 1+ (NEGATIVE) H Urine RBC Tntc /HPF (0 - 2) H Urine WBC 0-2 /HPF (0 - 2) Urine Squamous Epithelial Cells Moderate /LPF (NONE/OCC) H Urine Bacteria Few /HPF (NONE) Urine HCG, Qualitative Negative (NEGATIVE) Differential Total Cells Counted 100 Neutrophils % (Manual) 59 % (45-75) Lymphocytes % (Manual) 32 % (20-45) Monocytes % (Manual) 6 % (1-10) Eosinophils % (Manual) 3 % (0-3) Basophils % (Manual) 0 % (0-2) Band Neutrophils 0 % (0-8) Platelet Estimate Adequate Platelet Morphology Normal Polychromasia 1+ Hypochromasia 3+ Anisocytosis 1+ Microcytosis 2+ Hemoglobin A1c 5.7 % (4.3-6.0) Magnesium Level 1.7 MG/DL (1.8-2.4) L Iron Level 16 ug/dL (50-175) L Total Iron Binding Capacity 325 ug/dL (250-450) Percent Iron Saturation 5 % (15-50) L Unsaturated Iron Binding 309 ug/dL (112-346) Ferritin 11 NG/ML (8-388) Triglycerides Level 47 MG/DL (30-150) Cholesterol Level 102 MG/DL (< 200) LDL Cholesterol 62 mg/dL (<100) HDL Cholesterol 38 MG/DL (40-60) L Cholesterol/HDL Ratio 2.7 (3.3-4.4) L Thyroid Stimulating Hormone (TSH) 2.022 uiU/mL (0.358-3.740) Test 07/31/18 13:45 Troponin I 0.083 ng/mL (0.000-0.056) Height (Feet): 5 Height (Inches): 2.00 Weight (Pounds): 320 Medications Current Medications Medications (Trade) Dose Ordered Sig/[place] Route PRN Reason Start Time Stop Time Status Last Admin Dose Admin Acetaminophen (Tylenol) 650 mg Q4H PRN ORAL Mild Pain (Pain Scale 1-3) 07/31/18 05:15 08/30/18 05:14 Acetaminophen (Tylenol) 650 mg Q4H PRN ORAL fever 07/31/18 05:15 08/30/18 05:14 Albuterol/ Ipratropium (Albuterol/ Ipratropium) 3 ml Q4H PRN HHN Shortness of Breath 07/31/18 05:15 08/05/18 05:14 Aspirin (ASA) 81 mg DAILY ORAL 07/31/18 09:00 08/30/18 08:59 07/31/18 08:46 Bisacodyl (Dulcolax) 10 mg DAILYPRN PRN RECTAL Constipation 07/31/18 05:15 08/30/18 05:14 Dextrose (Dextrose 50%) 25 ml STAT PRN IV Hypoglycemia 07/31/18 05:15 08/30/18 05:14 Dextrose (Dextrose 50%) 50 ml STAT PRN IV Hypoglycemia 07/31/18 05:15 08/30/18 05:14 Docusate Sodium (Colace) 100 mg EVERY 12 HOURS ORAL 07/31/18 09:00 08/30/18 08:59 07/31/18 08:46 Heparin Sodium (Porcine) (Heparin 5000 units/ml) 5,000 units EVERY 12 HOURS SUBQ 07/31/18 09:00 08/30/18 08:59 07/31/18 08:48 Ondansetron HCl (Zofran) 4 mg Q6H PRN IVP Nausea & Vomiting 07/31/18 05:15 08/30/18 05:14 Polyethylene Glycol (Miralax) 17 gm DAILYPRN PRN ORAL Constipation 07/31/18 05:15 08/30/18 05:14 Assessment/Plan Problem List: (1) Cannabis abuse ICD Codes: F12.10 - Cannabis abuse, uncomplicated SNOMED: [id number] Status: stable Assessment/Plan no medication the pt was educated about the eating habits and healthy diet Chuy Owen MD Jul 31, 2018 14:57
--- NOTE | 2018-07-31 15:10 | Consultation ---
Consult Note Consult Note PCCM 27 F morbidly obese non-smoker p/w atypical CP, ant rad to back, no SOB, no cough, no wheezing, no F/C + edible MJ use, no tobacco, no EtOH, + inc stress D-dimer elevated, + microcytic anemia, elevated trops, sinus tach AFVSS o/w, O2 needs stable + h/o heavy menses, including current PMH: Obesity PSH: None Shx: + MJ, no other drugs, no tobacco, no EtOH Fhx: N/C ROS: Negative other than HPI PE; Last 24 Hour Vital Signs Date Time Temp Pulse Resp B/P (MAP) Pulse Ox O2 Delivery O2 Flow Rate FiO2 07/31/18 12:00 118 07/31/18 12:00 96.4 116 22 119/69 (86) 100 96.4 07/31/18 09:00 Nasal Cannula 3.0 07/31/18 08:00 97.7 115 22 111/63 (79) 100 97.7 07/31/18 08:00 112 07/31/18 06:59 115 20 Nasal Cannula 2.0 99 07/31/18 06:58 Nasal Cannula 2.0 28 07/31/18 06:58 99 Nasal Cannula 2.0 28 07/31/18 04:39 Nasal Cannula 2.0 07/31/18 04:15 98.1 128 24 104/67 98 Nasal Cannula 2.0 99 98.1 07/31/18 02:00 98.1 128 24 100/61 94 Nasal Cannula 2.0 99 98.1 07/30/18 22:05 142 29 Nasal Cannula 2.0 99 07/30/18 21:15 98.3 143 28 121/73 94 Room Air 98.3 07/30/18 21:13 98.3 144 29 121/73 94 Room Air 98.2 NAD, morbidly obese female NC/AT, OPC c MMM Supple s LAD or JVD CTA but distant Tachy but regular S/NT/ND c NABS No C/C. 1+ NARESH Laboratory Tests Test 07/30/18 21:50 07/30/18 23:45 07/31/18 01:25 07/31/18 08:15 White Blood Count 11.7 K/UL (4.8-10.8) H 9.5 K/UL (4.8-10.8) Red Blood Count 5.42 M/UL (4.20-5.40) H 5.06 M/UL (4.20-5.40) Hemoglobin 8.0 G/DL (12.0-16.0) L 7.6 G/DL (12.0-16.0) L Hematocrit 29.7 % (37.0-47.0) L 27.7 % (37.0-47.0) L Mean Corpuscular Volume 55 FL (80-99) L 55 FL (80-99) L Mean Corpuscular Hemoglobin 14.8 PG (27.0-31.0) L 15.1 PG (27.0-31.0) L Mean Corpuscular Hemoglobin Concent 26.9 G/DL (32.0-36.0) L 27.5 G/DL (32.0-36.0) L Red Cell Distribution Width 15.2 % (11.6-14.8) H 15.3 % (11.6-14.8) H Platelet Count 289 K/UL (150-450) 274 K/UL (150-450) Mean Platelet Volume 8.6 FL (6.5-10.1) 6.0 FL (6.5-10.1) L Neutrophils (%) (Auto) 58.3 % (45.0-75.0) % (45.0-75.0) Lymphocytes (%) (Auto) 32.2 % (20.0-45.0) % (20.0-45.0) Monocytes (%) (Auto) 6.6 % (1.0-10.0) % (1.0-10.0) Eosinophils (%) (Auto) 2.0 % (0.0-3.0) % (0.0-3.0) Basophils (%) (Auto) 0.9 % (0.0-2.0) % (0.0-2.0) D-Dimer 3.14 mg/L FEU (0.00-0.49) H Sodium Level 148 MMOL/L (136-145) H 139 MMOL/L (136-145) 139 MMOL/L (136-145) Potassium Level 2.1 MMOL/L (3.5-5.1) *L 4.2 MMOL/L (3.5-5.1) # 3.9 MMOL/L (3.5-5.1) Chloride Level 122 MMOL/L (98-107) H 106 MMOL/L (98-107) 106 MMOL/L (98-107) Carbon Dioxide Level 15 MMOL/L (21-32) L 25 MMOL/L (21-32) 26 MMOL/L (21-32) Anion Gap 11 mmol/L (5-15) 8 mmol/L (5-15) 8 mmol/L (5-15) Blood Urea Nitrogen 7 mg/dL (7-18) 12 mg/dL (7-18) 12 mg/dL (7-18) Creatinine 0.4 MG/DL (0.55-1.30) L 0.9 MG/DL (0.55-1.30) # 0.8 MG/DL (0.55-1.30) Estimat Glomerular Filtration Rate > 60 mL/min (>60) > 60 mL/min (>60) > 60 mL/min (>60) Glucose Level 61 MG/DL (74-106) L 109 MG/DL (74-106) H 118 MG/DL (74-106) H Calcium Level 4.9 MG/DL (8.5-10.1) *L 8.6 MG/DL (8.5-10.1) # 8.4 MG/DL (8.5-10.1) L Total Bilirubin 0.3 MG/DL (0.2-1.0) 0.5 MG/DL (0.2-1.0) Aspartate Amino Transf (AST/SGOT) 16 U/L (15-37) 34 U/L (15-37) Alanine Aminotransferase (ALT/SGPT) 12 U/L (12-78) 27 U/L (12-78) Alkaline Phosphatase 41 U/L (46-116) L 82 U/L (46-116) Total Creatine Kinase 103 U/L (26-308) Creatine Kinase MB < 0.5 NG/ML (0.0-3.6) Creatine Kinase MB Relative Index 0.4 Troponin I 0.248 ng/mL (0.000-0.056) 0.171 ng/mL (0.000-0.056) Pro-B-Type Natriuretic Peptide 102 pg/mL (0-125) Total Protein 4.4 G/DL (6.4-8.2) L 8.2 G/DL (6.4-8.2) # Albumin 1.4 G/DL (3.4-5.0) L 2.8 G/DL (3.4-5.0) L Globulin 3.0 g/dL 5.4 g/dL Albumin/Globulin Ratio 0.5 (1.0-2.7) L 0.5 (1.0-2.7) L Lipase 71 U/L (73-393) L Urine Color Yellow Urine Appearance Slightly cloudy Urine pH 6 (4.5-8.0) Urine Specific [place] 1.020 (1.005-1.035) Urine Protein 2+ (NEGATIVE) H Urine Glucose (UA) Negative (NEGATIVE) Urine Ketones Negative (NEGATIVE) Urine Blood 5+ (NEGATIVE) H Urine Nitrite Negative (NEGATIVE) Urine Bilirubin Negative (NEGATIVE) Urine Urobilinogen Normal MG/DL (0.0-1.0) Urine Leukocyte Esterase 1+ (NEGATIVE) H Urine RBC Tntc /HPF (0 - 2) H Urine WBC 0-2 /HPF (0 - 2) Urine Squamous Epithelial Cells Moderate /LPF (NONE/OCC) H Urine Bacteria Few /HPF (NONE) Urine HCG, Qualitative Negative (NEGATIVE) Differential Total Cells Counted 100 Neutrophils % (Manual) 59 % (45-75) Lymphocytes % (Manual) 32 % (20-45) Monocytes % (Manual) 6 % (1-10) Eosinophils % (Manual) 3 % (0-3) Basophils % (Manual) 0 % (0-2) Band Neutrophils 0 % (0-8) Platelet Estimate Adequate Platelet Morphology Normal Polychromasia 1+ Hypochromasia 3+ Anisocytosis 1+ Microcytosis 2+ Hemoglobin A1c 5.7 % (4.3-6.0) Magnesium Level 1.7 MG/DL (1.8-2.4) L Iron Level 16 ug/dL (50-175) L Total Iron Binding Capacity 325 ug/dL (250-450) Percent Iron Saturation 5 % (15-50) L Unsaturated Iron Binding 309 ug/dL (112-346) Ferritin 11 NG/ML (8-388) Triglycerides Level 47 MG/DL (30-150) Cholesterol Level 102 MG/DL (< 200) LDL Cholesterol 62 mg/dL (<100) HDL Cholesterol 38 MG/DL (40-60) L Cholesterol/HDL Ratio 2.7 (3.3-4.4) L Thyroid Stimulating Hormone (TSH) 2.022 uiU/mL (0.358-3.740) Test 07/31/18 13:45 Troponin I 0.083 ng/mL (0.000-0.056) Assessment/Plan Atypical CP Elevated cardiac biomarkers Elevated D-dimer Microcytic anemia H/O heavy menses Morbid obesity Snoring, likely JUAN/OHV PLAN: ABG CT CAP with contrast, chest as angio protocol LE DUPLEX F/U cards recs F/U TTE Fe panel, ferritin, retic, FOBT GI eval Psych eval Will need a sleep study as an outpatient Weight loss, diet and exercise discussed DVT Px: Hep SQ Rohan Sutherland MD Jul 31, 2018 15:10
[2018-07-31 16:00] VITALS: BP 114/72
--- NOTE | 2018-07-31 19:45 | Consultation ---
DATE OF CONSULTATION: 07/31/2018 CARDIOLOGY CONSULTATION CONSULTING PHYSICIAN: Bunny Anrett M.D. REFERRING PHYSICIAN: Rohan Sutherland M.D. ADDITIONAL REFERRING PHYSICIAN: Kwan Thakur M.D. REASON FOR CONSULTATION: Chest pain. HISTORY OF PRESENT ILLNESS: The patient is a 27-year-old lady with history of morbid obesity presents to the emergency room for increasing shortness of breath and chest discomfort. The patient also was having cough. She stated that she had ingested edible marijuana about 3 o'clock in the afternoon, noticed difficulty with breathing and she did not have any fever. The patient presented to the emergency room. Here she underwent an echocardiogram showed ejection fraction of 65%. Her EKG also did not show any acute ST-T wave abnormalities and she remained in normal sinus rhythm and sinus tachycardia. At the time of my evaluation, the patient is feeling better and denies any chest pain or shortness of breath. REVIEW OF SYSTEMS: Review of systems was performed and was negative other than what was mentioned in the history of present illness. PAST MEDICAL HISTORY: Morbid obesity. She is 5 feet and almost 400 pounds. SOCIAL HISTORY: She lives at home. Does not smoke or drink alcohol, but uses marijuana. PHYSICAL EXAMINATION: VITAL SIGNS: Blood pressure is 108/69, pulse is 110, respirations 18, and she is afebrile. HEAD AND NECK: No JVD or carotid bruits. LUNGS: Clear. CARDIOVASCULAR: Regular S1 and S2 with no gallop or murmur. ABDOMEN: Soft and morbidly obese. EXTREMITIES: No pitting edema. LABORATORY AND DIAGNOSTIC DATA: Her telemetry strips showed sinus tachycardia with no acute ST-T wave abnormalities. Echocardiogram showed normal left ventricular systolic function. Lower extremity duplex also showed no evidence of DVT. Labs show white count of 9.5, hemoglobin of 7.6, hematocrit of 27.7, and platelet count is 274. Sodium was 139, potassium 3.9, BUN of 12 and creatinine 0.8. Troponin is 0.17 and 0.083. ASSESSMENT AND PLAN: 1. Troponin leak. The level is coming down. Echocardiogram showed normal left ventricular systolic function. Even though, she is morbidly obese, however, she is only 27 years old. Urine toxicology screen also was positive for marijuana. Her D-dimer is also evaluated at 3.14, but lower extremity duplex is negative for DVT. In view of and shortness of breath, the patient may benefit from CT angio or V/Q scan. I will repeat the EKG. In the meantime, continue the patient on aspirin and low-dose beta-josias. troponin were available. 2. Severe anemia. Further evaluation in progress. 3. Morbid obesity. Thank you very much for allowing me to participate in the care of this patient. Please do not hesitate to contact me for any questions regarding my evaluation. Bunny Arnett M.D. DR: CRIS JOB#: [id number] CC:
[2018-07-31 20:00] VITALS: BP 112/65
[2018-07-31] MEDS: Metoprolol 25mg tab ORAL SCH (21:23)
[2018-08-01] VITALS: BP 135/89
[2018-08-01 04:00] VITALS: BP 111/74
[2018-08-01 08:00] VITALS: BP 117/77
[2018-08-01] MEDS ORDERED: Iron Sucrose 100 MG in NS 55 ML IVPB SCH ×2 (08:00→21:00)
[2018-08-01] MEDS: Docusate 100mg cap ORAL SCH ×2 (08:51→20:52)
[2018-08-01] MEDS: Aspirin Baby 81mg ORAL SCH (08:52)
[2018-08-01] MEDS: Metoprolol 25mg tab ORAL SCH ×2 (08:52→21:03)
[2018-08-01] MEDS: Heparin 5000 units/ml inj SUBQ SCH (08:53)
--- NOTE | 2018-08-01 09:42 | Consultation ---
Consult Note Consult Note Hematology Consult REQ MD: Kwan Mcmillan DOS: 08/01/2018 RFC: Severe iron deficiency anemia eval HPI 27 y/o female with pmh of morbid obesity who presents with chest pain and SOB. Ptc/o substernal chest pain radiating to back with associated shortness of breath, worse w/ activity over the past few days. Denies orthopnea, PND. Notes increased BLE swelling and weight gain. Notes increased cough. Denies f/c, n/v, d/c, abd pain. Pt states she ingests edible marijuana yesterday. At baseline pt ambulates independently. For Sob, had a duplex and potentially pending v/q v cta as per cards. Noted to have anemia and hematology service was consulted. PMH: morbid obesity, does not have PCP PSH: denies FMH: heart disease in mother SH: lives w/ sister in car Allergies: No Known Allergies (Unverified , 07/30/18) Scheduled Cephalexin* (Keflex*), 500 MG ORAL Q6H Doxycycline Monohydrate* (Doxycycline Monohydrate*), 100 MG ORAL TWICE A DAY No Known Medications* (NKM - No Known Medications*), 0 ., (Reported) Scheduled PRN Ibuprofen* (Motrin*), 600 MG ORAL Q8H PRN for For Pain Durable Medical Equipment Comp.stocking,Knee,Regular,Lrg (Truform Compression Stocking), EACH , (DME) Patient History History Provided By: Patient, Medical Record Healthcare decision maker Resuscitation status Full Code Advanced Directive on File No Review of Systems Constitutional: Reports: no symptoms Eye: Reports: no symptoms ENT: Reports: no symptoms Respiratory: Reports: cough, shortness of breath Cardiovascular: Reports: chest pain, edema Gastrointestinal: Reports: no symptoms Genitourinary: Reports: no symptoms Musculoskeletal: Reports: no symptoms Skin: Reports: no symptoms Psychiatric: Reports: no symptoms Neurological: Reports: no symptoms Endocrine: Reports: no symptoms Hematologic/Lymphatic: Reports: no symptoms Physical Exam: Last 24 Hour Vital Signs Date Time Temp Pulse Resp B/P (MAP) Pulse Ox O2 Delivery O2 Flow Rate FiO2 08/01/18 09:00 Venturi Mask 6.0 08/01/18 08:52 98 117/77 08/01/18 08:00 96.7 98 18 117/77 (90) 93 96.7 08/01/18 08:00 102 08/01/18 04:00 97.7 116 18 111/74 (86) 96 97.7 08/01/18 04:00 102 08/01/18 00:00 108 08/01/18 00:00 97.2 112 20 135/89 (104) 94 97.2 07/31/18 21:23 124 114/72 07/31/18 21:00 Venturi Mask 6.0 07/31/18 20:00 100.0 124 24 112/65 (81) 97 100.0 07/31/18 19:20 Nasal Cannula 2.0 28 07/31/18 19:20 98 Nasal Cannula 2.0 28 07/31/18 19:20 124 20 Nasal Cannula 2.0 28 07/31/18 16:00 131 07/31/18 16:00 98.1 121 22 114/72 (86) 99 98.1 07/31/18 12:00 118 07/31/18 12:00 96.4 116 22 119/69 (86) 100 96.4 General: alert, cooperative, morbid obesity Head: normocephalic, without obvious abnormality Eyes: conjunctivae/corneas clear. PERRL Throat: lips, mucosa, and tongue normal Neck: supple, symmetrical, trachea midline Lungs: ctab Heart: tachycardic, regular rhythm, S1, S2 normal Abdomen: soft, non-tender, non-distended Extremities: extremities normal, atraumatic, no cyanosis, +BLE edema Pulses: 2+ and symmetric Skin: skin color, texture, turgor maryann Neurologic: grossly normal, no focal deficits Laboratory Tests Test 07/31/18 13:45 07/31/18 21:15 Troponin I 0.083 ng/mL (0.000-0.056) Arterial Blood pH 7.482 (7.350-7.450) Arterial Blood Partial Pressure CO2 32.3 mmHg (35.0-45.0) L Arterial Blood Partial Pressure O2 49.9 mmHg (75.0-100.0) Arterial Blood HCO3 23.6 mmol/L (22.0-26.0) Arterial Blood Oxygen Saturation 83.5 % (92.0-98.0) L Arterial Blood Base Excess 0.4 Timbo Test Positive Assessment/Plan Assessment/Plan # Severe anemia of iron deficiency --> Final results are pending for B12/folate, retic, FOBT --> iron panel shows anemia of iron deficiency --> have started iv iron x 5 days total --> CT c/a/p to r/o malignancy --> gi eval as needed # Atypical chest pain - potentially related to anemia, morbid obesity, r/o ACS given elevated troponin --> cardiology consulted --> Trend trop/EKG, check lipid panel, A1C, TSH --> ASA 81mg daily # Shortness of breath - elevated d-dimer, r/o DVT/PE --> Pulmonology consulted --> Check CT angio chest # Morbid obesity --> Guest Service Representative on weight loss # Homelessness --> SW consult as pt living in car w/ sister Greatly appreciate consult, have reviewed labs Castillo Berry MD Aug 01, 2018 09:42
--- NOTE | 2018-08-01 10:14 | Cardiac Electrophysiology PN ---
Assessment/Plan Assessment/Plan 1. Troponin leak. The level is low and flat 0.2, 0.1,0.08. Could be due to demand ischemia in view of her sevre anemia. Echocardiogram showed normal left ventricular systolic function. She is only 27 years old. Urine toxicology screen also was positive for marijuana. Her D-dimer is also evaluated at 3.14, but lower extremity duplex is negative for DVT. CT angio couldn't be done. Can do stress test after anemia is corrected. 2. Severe anemia Hb 7 range. Further evaluation in progress by hematology. 3. Morbid obesity DW RN. Subjective Subjective Alert in NAD. Couldn't get the CT scans due to her weight and body habitus. Objective Last 24 Hour Vital Signs Date Time Temp Pulse Resp B/P (MAP) Pulse Ox O2 Delivery O2 Flow Rate FiO2 08/01/18 09:00 Venturi Mask 6.0 08/01/18 08:52 98 117/77 08/01/18 08:00 96.7 98 18 117/77 (90) 93 96.7 08/01/18 08:00 102 08/01/18 04:00 97.7 116 18 111/74 (86) 96 97.7 08/01/18 04:00 102 08/01/18 00:00 108 08/01/18 00:00 97.2 112 20 135/89 (104) 94 97.2 07/31/18 21:23 124 114/72 07/31/18 21:00 Venturi Mask 6.0 07/31/18 20:00 100.0 124 24 112/65 (81) 97 100.0 07/31/18 19:20 Nasal Cannula 2.0 28 07/31/18 19:20 98 Nasal Cannula 2.0 28 07/31/18 19:20 124 20 Nasal Cannula 2.0 28 07/31/18 16:00 131 07/31/18 16:00 98.1 121 22 114/72 (86) 99 98.1 07/31/18 12:00 118 07/31/18 12:00 96.4 116 22 119/69 (86) 100 96.4 Intake and Output 07/31/18 08/01/18 19:00 07:00 Intake Total 240 ml 200 ml Balance 240 ml 200 ml Intake Oral 240 ml 200 ml # Voids 2 # Bowel Movements 2 Laboratory Tests Test 07/31/18 13:45 07/31/18 21:15 Troponin I 0.083 ng/mL (0.000-0.056) Arterial Blood pH 7.482 (7.350-7.450) Arterial Blood Partial Pressure CO2 32.3 mmHg (35.0-45.0) L Arterial Blood Partial Pressure O2 49.9 mmHg (75.0-100.0) Arterial Blood HCO3 23.6 mmol/L (22.0-26.0) Arterial Blood Oxygen Saturation 83.5 % (92.0-98.0) L Arterial Blood Base Excess 0.4 Timbo Test Positive Objective HEAD AND NECK: No JVD or carotid bruits. LUNGS: Clear. CARDIOVASCULAR: Regular S1 and S2 with no gallop or murmur. ABDOMEN: Soft and morbidly obese. EXTREMITIES: No pitting edema. Bunny Arnett MD Aug 01, 2018 10:14
[2018-08-01 11:12] LABS: BASOPHILS % (AUTO) 0.6 % (0.0-2.0); EOSINOPHILS % (AUTO) 0.8 % (0.0-3.0); HEMATOCRIT 30.8 % (37.0-47.0); HEMOGLOBIN 8.3 G/DL (12.0-16.0); LYMPHOCYTES % (AUTO) 34.1 % (20.0-45.0); MEAN CORPUSCULAR VOLUME 55 FL (80-99); MONOCYTES % (AUTO) 7.6 % (1.0-10.0); PLATELET COUNT 341 K/UL (150-450); RED BLOOD COUNT 5.58 M/UL (4.20-5.40); RED CELL DISTRIBUTION WIDTH 15.5 % (11.6-14.8); WHITE BLOOD COUNT 10.7 K/UL (4.8-10.8)
[2018-08-01 11:24] LABS: ANION GAP 8 mmol/L (5-15); BLOOD UREA NITROGEN 17 mg/dL (7-18); CALCIUM 8.6 MG/DL (8.5-10.1); CARBON DIOXIDE 25 MMOL/L (21-32); CHLORIDE 104 MMOL/L (98-107); INR 1.1 (0.9-1.1); POTASSIUM 4.4 MMOL/L (3.5-5.1); SODIUM 137 MMOL/L (136-145)
[2018-08-01 12:00] VITALS: BP 108/64
--- NOTE | 2018-08-01 13:33 | General Progress Note ---
Assessment/Plan Problem List: (1) Cannabis abuse ICD Codes: F12.10 - Cannabis abuse, uncomplicated SNOMED: 85643541 Status: stable, progressing Subjective Date patient seen: Aug 01, 2018 Neurologic/Psychiatric: Reports: no symptoms Allergies: Coded Allergies: No Known Allergies (Unverified , 07/30/18) Objective Last 24 Hour Vital Signs Date Time Temp Pulse Resp B/P (MAP) Pulse Ox O2 Delivery O2 Flow Rate FiO2 08/01/18 12:00 96.1 91 18 108/64 (79) 99 96.1 08/01/18 12:00 94 08/01/18 09:00 Venturi Mask 6.0 08/01/18 08:52 98 117/77 08/01/18 08:00 Venturi Mask 12.0 50 08/01/18 08:00 96.7 98 18 117/77 (90) 93 96.7 08/01/18 08:00 102 08/01/18 08:00 118 20 Venturi Mask 12.0 50 08/01/18 08:00 98 Venturi Mask 12.0 50 08/01/18 04:00 97.7 116 18 111/74 (86) 96 97.7 08/01/18 04:00 102 08/01/18 00:00 108 08/01/18 00:00 97.2 112 20 135/89 (104) 94 97.2 07/31/18 21:23 124 114/72 07/31/18 21:00 Venturi Mask 6.0 07/31/18 20:00 100.0 124 24 112/65 (81) 97 100.0 07/31/18 19:20 Nasal Cannula 2.0 28 07/31/18 19:20 98 Nasal Cannula 2.0 28 07/31/18 19:20 124 20 Nasal Cannula 2.0 28 07/31/18 16:00 131 07/31/18 16:00 98.1 121 22 114/72 (86) 99 98.1 Intake and Output 07/31/18 08/01/18 19:00 07:00 Intake Total 240 ml 200 ml Balance 240 ml 200 ml Intake Oral 240 ml 200 ml # Voids 2 # Bowel Movements 2 Laboratory Tests 07/31/18 13:45: Troponin I 0.083H 07/31/18 21:15: Arterial Blood pH 7.482H, Arterial Blood Partial Pressure CO2 32.3L, Arterial Blood Partial Pressure O2 49.9*L, Arterial Blood HCO3 23.6, Arterial Blood Oxygen Saturation 83.5L, Arterial Blood Base Excess 0.4, Timbo Test Positive 08/01/18 10:40: Troponin I 0.041, White Blood Count 10.7, Red Blood Count 5.58H, Hemoglobin 8.3L , Hematocrit 30.8L, Mean Corpuscular Volume 55L, Mean Corpuscular Hemoglobin 14.8L, Mean Corpuscular Hemoglobin Concent 26.8L, Red Cell Distribution Width 15.5H, Platelet Count 341, Mean Platelet Volume 6.3L, Neutrophils (%) (Auto) 57.0, Lymphocytes (%) (Auto) 34.1, Monocytes (%) (Auto) 7.6, Eosinophils (%) ( Auto) 0.8, Basophils (%) (Auto) 0.6, Reticulocyte Count 3.0H, Prothrombin Time 11.4, Prothromb Time International Ratio 1.1, Sodium Level 137, Potassium Level 4.4, Chloride Level 104, Carbon Dioxide Level 25, Anion Gap 8, Blood Urea Nitrogen 17, Creatinine 1.0, Estimat Glomerular Filtration Rate > 60, Glucose Level 115H, Calcium Level 8.6, Magnesium Level 2.0, Total Protein (PEP) [Pending ], Albumin (PEP) [Pending], Globulin (PEP) [Pending], Albumin/Globulin Ratio [ Pending], Bwbtv-1-Sgkocryno [Pending], Zrrpy-0-Hrjvkhfai [Pending], Beta Globulins [Pending], Beta Gamma Globulin [Pending], PEP Abnormal Protein Bands [ Pending], Protein Electrophoresis Interpret [Pending], Vitamin B12 Level 635, Folate 9.3 Height (Feet): 5 Height (Inches): 2.00 Weight (Pounds): 320 Chuy Owen MD Aug 01, 2018 13:32
[2018-08-01 16:00] VITALS: BP 103/74
--- NOTE | 2018-08-01 16:43 | Diagnostic Imaging Report ---
Indication: Vaginal bleeding. Negative test. 27-year-old female Technique: Grayscale and duplex Doppler imaging of the pelvis performed utilizing a transabdominal scan. Comparison: None Findings: Endometrium is about 6 mm. The uterus appears normal in size contour and echogenicity. There is a moderate amount of free fluid present. The fluid is notable for some complexity with debris which may be blood. In the context of a negative test this is probably on the basis of a ruptured ovarian cyst. There is no adnexal mass identified. Left ovary is not visualized. The right ovary shows dopplerable blood flow and appears normal measures 2.2 x 2.4 x 1.6 cm. The uterus measures 6 x 5 x 3 cm. IMPRESSION: Complex free fluid within the pelvis presumably blood or hemoperitoneum. In the context of a negative test the finding is probably on the basis of a ruptured ovarian cyst which is not visualized. Nonvisualization of the left ovary. Normal appearance of the right ovary. Unremarkable uterus
--- NOTE | 2018-08-01 17:46 | General Progress Note ---
Assessment/Plan Status: stable Assessment/Plan # Atypical chest pain with elevated troponin likely NSTEMI type 2 demand ischemia in setting of anemia - Cardiology consulted - Tele - Check TTE--per Dr. Hope BOYD wnl, awaiting final report - ASA 81mg daily # Shortness of breath - elevated d-dimer, r/o DVT/PE # Acute hypoxic respiratory failure - Pulmonology consulted - Unable to do CT 2/2 pt's weight - Check BLE venous duplex --> neg # Severe anemia 2/2 Fe def anemia, unclear etiology, r/o GI blood loss, malignancy - Heme/onc consulted - IV venofer started 08/01- - CT c/a/p unable to be done /2 pt's weights - Check pelvic U/S - GI consult # Morbid obesity - Travel Registered Nurse Icu on weight loss Dispo: SW consult as pt living in car w/ sister DVT Prophylaxis: HSQ Code Status: Full Hospital Classification Declaration: Based on this initial evaluation, and depending on the patient's clinical course, I anticipate that this patient will require hospitalization for 2-3 days for chest pain, SOB, severe anemia, and close respiratory/hemodynamic monitoring. Disposition: Once the patient is stable to leave the hospital, I anticipate the patient will likely be discharged to the following environment: home I spent 42 minutes on this patient's case, and 23 minutes were dedicated to counseling and/or care coordination. Discussed with patient/family, nursing staff, SW/ADRY,cardiology, pulmonology regarding clinical status, treatment course , and disposition planning. Time of note may not reflect time of encounter. Subjective Date patient seen: Aug 01, 2018 Time patient seen: 09:30 ROS Limited/Unobtainable: No Constitutional: Reports: no symptoms HEENT: Reports: no symptoms Cardiovascular: Reports: chest pain Respiratory: Reports: shortness of breath Gastrointestinal/Abdominal: Reports: no symptoms Genitourinary: Reports: no symptoms Neurologic/Psychiatric: Reports: no symptoms Endocrine: Reports: no symptoms Hematologic/Lymphatic: Reports: no symptoms Allergies: Coded Allergies: No Known Allergies (Unverified , 07/30/18) Subjective No acute o/n events Unable to do CT or V/Q scan given pt's weight Pt cont to c/o shortness of breath, currently on venturi mask. Currently denies chest pain Objective Last 24 Hour Vital Signs Date Time Temp Pulse Resp B/P (MAP) Pulse Ox O2 Delivery O2 Flow Rate FiO2 08/01/18 16:00 94 08/01/18 16:00 96.3 99 20 103/74 (84) 94 96.3 08/01/18 13:30 Nasal Cannula 3.0 08/01/18 12:00 96.1 91 18 108/64 (79) 99 96.1 08/01/18 12:00 94 08/01/18 09:00 Venturi Mask 6.0 08/01/18 08:52 98 117/77 08/01/18 08:00 Venturi Mask 12.0 50 08/01/18 08:00 96.7 98 18 117/77 (90) 93 96.7 08/01/18 08:00 102 08/01/18 08:00 118 20 Venturi Mask 12.0 50 08/01/18 08:00 98 Venturi Mask 12.0 50 08/01/18 04:00 97.7 116 18 111/74 (86) 96 97.7 08/01/18 04:00 102 08/01/18 00:00 108 08/01/18 00:00 97.2 112 20 135/89 (104) 94 97.2 07/31/18 21:23 124 114/72 07/31/18 21:00 Venturi Mask 6.0 07/31/18 20:00 100.0 124 24 112/65 (81) 97 100.0 07/31/18 19:20 Nasal Cannula 2.0 28 07/31/18 19:20 98 Nasal Cannula 2.0 28 07/31/18 19:20 124 20 Nasal Cannula 2.0 28 Intake and Output 07/31/18 08/01/18 19:00 07:00 Intake Total 240 ml 200 ml Balance 240 ml 200 ml Intake Oral 240 ml 200 ml # Voids 2 # Bowel Movements 2 Laboratory Tests 07/31/18 21:15: Arterial Blood pH 7.482H, Arterial Blood Partial Pressure CO2 32.3L, Arterial Blood Partial Pressure O2 49.9*L, Arterial Blood HCO3 23.6, Arterial Blood Oxygen Saturation 83.5L, Arterial Blood Base Excess 0.4, Timbo Test Positive 08/01/18 10:40: White Blood Count 10.7, Red Blood Count 5.58H, Hemoglobin 8.3L, Hematocrit 30.8L , Mean Corpuscular Volume 55L, Mean Corpuscular Hemoglobin 14.8L, Mean Corpuscular Hemoglobin Concent 26.8L, Red Cell Distribution Width 15.5H, Platelet Count 341, Mean Platelet Volume 6.3L, Neutrophils (%) (Auto) 57.0, Lymphocytes (%) (Auto) 34.1, Monocytes (%) (Auto) 7.6, Eosinophils (%) (Auto) 0.8, Basophils (%) (Auto) 0.6, Reticulocyte Count 3.0H, Prothrombin Time 11.4, Prothromb Time International Ratio 1.1, Sodium Level 137, Potassium Level 4.4, Chloride Level 104, Carbon Dioxide Level 25, Anion Gap 8, Blood Urea Nitrogen 17 , Creatinine 1.0, Estimat Glomerular Filtration Rate > 60, Glucose Level 115H, Calcium Level 8.6, Magnesium Level 2.0, Troponin I 0.041, Total Protein (PEP) [ Pending], Albumin (PEP) [Pending], Globulin (PEP) [Pending], Albumin/Globulin Ratio [Pending], Pqghp-9-Bnqcjsqzc [Pending], Xnoww-7-Kjduefewr [Pending], Beta Globulins [Pending], Beta Gamma Globulin [Pending], PEP Abnormal Protein Bands [ Pending], Protein Electrophoresis Interpret [Pending], Vitamin B12 Level 635, Folate 9.3 Height (Feet): 5 Height (Inches): 2.00 Weight (Pounds): 320 Objective General: alert, cooperative, no distress, appears stated age, morbidly obese Head: normocephalic, without obvious abnormality, atraumatic Eyes: conjunctivae/corneas clear. PERRL, EOM's intact Throat: lips, mucosa, and tongue normal. MMM Neck: supple, symmetrical, trachea midline; difficult to visualize JVD Lungs: clear to auscultation bilaterally Heart: regular rate and rhythm, S1, S2 normal, no murmur, click, rub or gallop Abdomen: soft, non-tender, non-distended, bowel sounds normal; obese abd Extremities: extremities normal, atraumatic, no cyanosis, +BLE edema Pulses: 2+ and symmetric Skin: skin color, texture, turgor normal; no rashes or lesions Neurologic: grossly normal, no focal deficits Kwan ThakurD. Aug 01, 2018 17:46
--- NOTE | 2018-08-01 19:46 | Pulmonology Progress Note ---
Assessment/Plan Problems: (1) Chest pain (2) Anemia Assessment/Plan Atypical CP Elevated cardiac biomarkers, downtrending, likely demand ischemia Elevated D-dimer and negative duplex, VQ and CT cannot be done 2/2 size Microcytic anemia/BRAULIO H/O heavy menses Morbid obesity Snoring, likely JUAN/OHV PLAN: Risk/benefits of A/C need to be be considered in light of an uncertain diagnosis , underlying anemia and possible bleeding For now continue Hep SQ TID, if any e/o R heart strain on her TTE or change in her clinical presentation would start IVUH immediately I called [facility], the ER scanner has a weight limit of 675 lbs and a circumference max of 72 in. I have tentatively placed a bed request and the RN will measure the pt's circumference F/U cards recs F/U TTE F/U FOBT, GI eval F/U HEME recs, continue VENOFER F/U final TRANSVAG US Psych recs Will need a sleep study as an outpatient Weight loss, diet and exercise discussed DVT Px: Hep SQ TID SW eval Subjective Allergies: Coded Allergies: No Known Allergies (Unverified , 07/30/18) Subjective AFVSS, on 3L O2, Hb 8,3, 7.48/32/49/23/83 TTE done but report pending Unable to fit in CT scanner, Duplex negative, VQ can not be done + BRAULIO, seen by holger, started on Venofer + SOB, no CP, no F/C, no NVDC, no abd pain/urinary complaints Objective Last 24 Hour Vital Signs Date Time Temp Pulse Resp B/P (MAP) Pulse Ox O2 Delivery O2 Flow Rate FiO2 08/01/18 16:00 94 08/01/18 16:00 96.3 99 20 103/74 (84) 94 96.3 08/01/18 13:30 Nasal Cannula 3.0 08/01/18 12:00 96.1 91 18 108/64 (79) 99 96.1 08/01/18 12:00 94 08/01/18 09:00 Venturi Mask 6.0 08/01/18 08:52 98 117/77 08/01/18 08:00 Venturi Mask 12.0 50 08/01/18 08:00 96.7 98 18 117/77 (90) 93 96.7 08/01/18 08:00 102 08/01/18 08:00 118 20 Venturi Mask 12.0 50 08/01/18 08:00 98 Venturi Mask 12.0 50 08/01/18 04:00 97.7 116 18 111/74 (86) 96 97.7 08/01/18 04:00 102 08/01/18 00:00 108 08/01/18 00:00 97.2 112 20 135/89 (104) 94 97.2 07/31/18 21:23 124 114/72 07/31/18 21:00 Venturi Mask 6.0 07/31/18 20:00 100.0 124 24 112/65 (81) 97 100.0 Intake and Output 07/31/18 08/01/18 19:00 07:00 Intake Total 240 ml 200 ml Balance 240 ml 200 ml Intake Oral 240 ml 200 ml # Voids 2 # Bowel Movements 2 General Appearance: no acute distress, other - morbidly obese female HEENT: normocephalic, atraumatic, anicteric, mucous membranes moist Respiratory/Chest: lungs clear - but distant Cardiovascular: normal peripheral pulses, normal rate, regular rhythm Abdomen: normal bowel sounds, soft, non tender, no organomegaly, non distended , no mass Extremities: no cyanosis, no clubbing, no edema Laboratory Tests 07/31/18 21:15: Arterial Blood pH 7.482H, Arterial Blood Partial Pressure CO2 32.3L, Arterial Blood Partial Pressure O2 49.9*L, Arterial Blood HCO3 23.6, Arterial Blood Oxygen Saturation 83.5L, Arterial Blood Base Excess 0.4, Timbo Test Positive 08/01/18 10:40: White Blood Count 10.7, Red Blood Count 5.58H, Hemoglobin 8.3L, Hematocrit 30.8L , Mean Corpuscular Volume 55L, Mean Corpuscular Hemoglobin 14.8L, Mean Corpuscular Hemoglobin Concent 26.8L, Red Cell Distribution Width 15.5H, Platelet Count 341, Mean Platelet Volume 6.3L, Neutrophils (%) (Auto) 57.0, Lymphocytes (%) (Auto) 34.1, Monocytes (%) (Auto) 7.6, Eosinophils (%) (Auto) 0.8, Basophils (%) (Auto) 0.6, Reticulocyte Count 3.0H, Prothrombin Time 11.4, Prothromb Time International Ratio 1.1, Sodium Level 137, Potassium Level 4.4, Chloride Level 104, Carbon Dioxide Level 25, Anion Gap 8, Blood Urea Nitrogen 17 , Creatinine 1.0, Estimat Glomerular Filtration Rate > 60, Glucose Level 115H, Calcium Level 8.6, Magnesium Level 2.0, Troponin I 0.041, Total Protein (PEP) [ Pending], Albumin (PEP) [Pending], Globulin (PEP) [Pending], Albumin/Globulin Ratio [Pending], Ostei-9-Nwphfbfbt [Pending], Xchpo-8-Sqgvyndbm [Pending], Beta Globulins [Pending], Beta Gamma Globulin [Pending], PEP Abnormal Protein Bands [ Pending], Protein Electrophoresis Interpret [Pending], Vitamin B12 Level 635, Folate 9.3 Current Medications Medications (Trade) Dose Ordered Sig/Destini Route PRN Reason Start Time Stop Time Status Last Admin Dose Admin Acetaminophen (Tylenol) 650 mg Q4H PRN ORAL Mild Pain (Pain Scale 1-3) 07/31/18 05:15 08/30/18 05:14 Acetaminophen (Tylenol) 650 mg Q4H PRN ORAL fever 07/31/18 05:15 08/30/18 05:14 Albuterol/ Ipratropium (Albuterol/ Ipratropium) 3 ml Q4H PRN HHN Shortness of Breath 07/31/18 05:15 08/05/18 05:14 Aspirin (ASA) 81 mg DAILY ORAL 07/31/18 09:00 08/30/18 08:59 08/01/18 08:52 Bisacodyl (Dulcolax) 10 mg DAILYPRN PRN RECTAL Constipation 07/31/18 05:15 08/30/18 05:14 Dextrose (Dextrose 50%) 25 ml STAT PRN IV Hypoglycemia 07/31/18 05:15 08/30/18 05:14 Dextrose (Dextrose 50%) 50 ml STAT PRN IV Hypoglycemia 07/31/18 05:15 08/30/18 05:14 Docusate Sodium (Colace) 100 mg EVERY 12 HOURS ORAL 07/31/18 09:00 08/30/18 08:59 08/01/18 08:51 Heparin Sodium (Porcine) (Heparin 5000 units/ml) 5,000 units EVERY 12 HOURS SUBQ 07/31/18 09:00 08/30/18 08:59 08/01/18 08:53 Iron Sucrose 100 mg/Sodium Chloride 60 ml @ 240 mls/hr QHS IV 08/01/18 21:00 08/05/18 21:14 Metoprolol Tartrate (Lopressor) 25 mg EVERY 12 HOURS ORAL 07/31/18 21:00 08/30/18 20:59 08/01/18 08:52 Ondansetron HCl (Zofran) 4 mg Q6H PRN IVP Nausea & Vomiting 07/31/18 05:15 08/30/18 05:14 07/31/18 23:24 Polyethylene Glycol (Miralax) 17 gm DAILYPRN PRN ORAL Constipation 07/31/18 05:15 08/30/18 05:14 Rohan Sutherland MD Aug 01, 2018 19:46
[2018-08-01 20:00] VITALS: BP 97/73
[2018-08-01] MEDS: Iron Sucrose 100 MG in NS 55 ML IV SCH (20:52)
[2018-08-01] MEDS ORDERED: Albuterol/Ipratropium 3ml neb HHN PRN (21:15)
[2018-08-01] MEDS: Heparin 2000 units/Ns 1000ml INJ ONE (23:45)
[2018-08-02] VITALS: BP 97/71
[2018-08-02] MEDS: Albuterol/Ipratropium 3ml neb HHN SCH ×4 (01:09→19:33)
[2018-08-02 04:00] VITALS: BP 121/71
[2018-08-02 08:00] VITALS: BP 109/68
[2018-08-02] MEDS: Heparin 5000 units/ml inj SUBQ SCH ×3 (09:00→18:00)
[2018-08-02] MEDS: Aspirin Baby 81mg ORAL SCH (09:47)
[2018-08-02] MEDS: Docusate 100mg cap ORAL SCH ×2 (09:48→20:44)
[2018-08-02] MEDS: Metoprolol 25mg tab ORAL SCH ×2 (09:48→20:41)
[2018-08-02 12:00] VITALS: BP 102/52
--- NOTE | 2018-08-02 12:16 | General Progress Note ---
Assessment/Plan Assessment/Plan GI CONSULT Dictated Anemia likely due to menstrual losses Agree with checking stool OB, but would hold off since on menses now Thank you Elena Hernadez MD Subjective Allergies: Coded Allergies: No Known Allergies (Unverified , 07/30/18) Objective Last 24 Hour Vital Signs Date Time Temp Pulse Resp B/P (MAP) Pulse Ox O2 Delivery O2 Flow Rate FiO2 08/02/18 09:48 98 109/68 08/02/18 09:00 Nasal Cannula 3.0 08/02/18 08:03 98 20 97 Venturi Mask 8.0 40 08/02/18 08:00 94 08/02/18 08:00 97.9 105 20 109/68 (82) 95 97.9 08/02/18 07:55 97 20 97 Venturi Mask 8.0 40 08/02/18 07:54 Venturi Mask 8.0 40 08/02/18 07:53 97 Venturi Mask 8.0 40 08/02/18 04:00 97.9 93 19 121/71 (88) 95 97.9 08/02/18 04:00 93 08/02/18 01:19 103 20 97 Venturi Mask 8.0 40 08/02/18 01:09 102 22 95 Venturi Mask 8.0 40 08/02/18 00:00 104 08/02/18 00:00 98.2 101 18 97/71 (80) 93 98.2 08/01/18 21:41 108 20 98 Nasal Cannula 3.0 32 08/01/18 21:31 107 20 96 Nasal Cannula 3.0 32 08/01/18 21:03 102 97/73 08/01/18 21:00 Nasal Cannula 3.0 08/01/18 20:05 102 08/01/18 20:00 97.7 102 26 97/73 (81) 93 97.7 08/01/18 19:37 Nasal Cannula 3.0 32 08/01/18 19:37 96 Nasal Cannula 3.0 32 08/01/18 19:37 99 20 Nasal Cannula 3.0 32 08/01/18 16:00 94 08/01/18 16:00 96.3 99 20 103/74 (84) 94 96.3 08/01/18 13:30 Nasal Cannula 3.0 Intake and Output 08/01/18 08/02/18 19:00 07:00 Intake Total 370 ml 50 ml Output Total 750 ml Balance -380 ml 50 ml Intake Oral 370 ml 50 ml Output Urine Total 750 ml # Voids 2 # Bowel Movements 2 Height (Feet): 5 Height (Inches): 2.00 Weight (Pounds): 320 Rubén Hernadez MD Aug 02, 2018 12:16
--- NOTE | 2018-08-02 13:58 | Pulmonology Progress Note ---
Assessment/Plan Assessment/Plan Atypical CP Elevated cardiac biomarkers, downtrending, likely demand ischemia Elevated D-dimer and negative duplex, VQ and CT cannot be done 2/2 size Microcytic anemia/BRAULIO H/O heavy menses Morbid obesity Snoring, likely JUAN/OHV PLAN: Echo still pending Risk/benefits of A/C need to be be considered in light of an uncertain diagnosis , underlying anemia and possible bleeding For now continue Hep SQ TID, if any e/o R heart strain on her TTE or change in her clinical presentation would start IVUH immediately I called [facility], the ER scanner has a weight limit of 675 lbs and a circumference max of 72 in. I have tentatively placed a bed request and the RN will measure the pt's circumference F/U cards recs F/U TTE F/U FOBT, GI eval F/U HEME recs, continue VENOFER Will need a sleep study as an outpatient DVT Px: Hep SQ TID SW eval Subjective Constitutional: Reports: no symptoms Respiratory: Reports: dry cough Cardiovascular: Reports: chest pain Genitourinary: Reports: no symptoms Neurologic: Reports: no symptoms Allergies: Coded Allergies: No Known Allergies (Unverified , 07/30/18) Subjective still complains of shortness of breathand cough no cp nv ? still bleeding tolerating po not getting oob as she thinks she will pass out Objective Last 24 Hour Vital Signs Date Time Temp Pulse Resp B/P (MAP) Pulse Ox O2 Delivery O2 Flow Rate FiO2 08/02/18 13:42 99 20 98 Venturi Mask 8.0 40 08/02/18 13:36 98 20 97 Venturi Mask 8.0 40 08/02/18 12:00 90 08/02/18 12:00 98.7 93 20 102/52 (69) 98 98.7 08/02/18 09:48 98 109/68 08/02/18 09:00 Nasal Cannula 3.0 08/02/18 08:03 98 20 97 Venturi Mask 8.0 40 08/02/18 08:00 94 08/02/18 08:00 97.9 105 20 109/68 (82) 95 97.9 08/02/18 07:55 97 20 97 Venturi Mask 8.0 40 08/02/18 07:54 Venturi Mask 8.0 40 08/02/18 07:53 97 Venturi Mask 8.0 40 08/02/18 04:00 97.9 93 19 121/71 (88) 95 97.9 08/02/18 04:00 93 08/02/18 01:19 103 20 97 Venturi Mask 8.0 40 08/02/18 01:09 102 22 95 Venturi Mask 8.0 40 08/02/18 00:00 104 08/02/18 00:00 98.2 101 18 97/71 (80) 93 98.2 08/01/18 21:41 108 20 98 Nasal Cannula 3.0 32 08/01/18 21:31 107 20 96 Nasal Cannula 3.0 32 08/01/18 21:03 102 97/73 08/01/18 21:00 Nasal Cannula 3.0 08/01/18 20:05 102 08/01/18 20:00 97.7 102 26 97/73 (81) 93 97.7 08/01/18 19:37 Nasal Cannula 3.0 32 08/01/18 19:37 96 Nasal Cannula 3.0 32 08/01/18 19:37 99 20 Nasal Cannula 3.0 32 08/01/18 16:00 94 08/01/18 16:00 96.3 99 20 103/74 (84) 94 96.3 Intake and Output 08/01/18 08/02/18 19:00 07:00 Intake Total 370 ml 50 ml Output Total 750 ml Balance -380 ml 50 ml Intake Oral 370 ml 50 ml Output Urine Total 750 ml # Voids 2 # Bowel Movements 2 General Appearance: WD/WN Respiratory/Chest: lungs clear Cardiovascular: normal rate, regular rhythm Abdomen: normal bowel sounds, soft, non tender Extremities: no cyanosis Neurologic/Psychiatric: alert, oriented x 3 Current Medications Medications (Trade) Dose Ordered Sig/Destini Route PRN Reason Start Time Stop Time Status Last Admin Dose Admin Acetaminophen (Tylenol) 650 mg Q4H PRN ORAL Mild Pain (Pain Scale 1-3) 07/31/18 05:15 08/30/18 05:14 Acetaminophen (Tylenol) 650 mg Q4H PRN ORAL fever 07/31/18 05:15 08/30/18 05:14 Albuterol/ Ipratropium (Albuterol/ Ipratropium) 3 ml Q4H PRN HHN Shortness of Breath 08/01/18 21:15 08/06/18 21:14 08/01/18 21:30 Albuterol/ Ipratropium (Albuterol/ Ipratropium) 3 ml Q6HRT HHN 08/02/18 01:00 08/07/18 00:59 08/02/18 13:36 Aspirin (ASA) 81 mg DAILY ORAL 07/31/18 09:00 08/30/18 08:59 08/02/18 09:47 Bisacodyl (Dulcolax) 10 mg DAILYPRN PRN RECTAL Constipation 07/31/18 05:15 08/30/18 05:14 Chlorhexidine Gluconate (Mary-Hex 2%) 1 applic DAILY@2000 TOPIC 08/02/18 20:00 09/01/18 19:59 Dextrose (Dextrose 50%) 25 ml STAT PRN IV Hypoglycemia 07/31/18 05:15 08/30/18 05:14 Dextrose (Dextrose 50%) 50 ml STAT PRN IV Hypoglycemia 07/31/18 05:15 08/30/18 05:14 Docusate Sodium (Colace) 100 mg EVERY 12 HOURS ORAL 07/31/18 09:00 08/30/18 08:59 08/02/18 09:48 Heparin Sodium (Porcine) (Heparin 5000 units/ml) 5,000 units TID SUBQ 08/02/18 09:00 08/30/18 08:59 Iron Sucrose 100 mg/Sodium Chloride 60 ml @ 240 mls/hr QHS IV 08/01/18 21:00 08/05/18 21:14 08/01/18 20:52 Metoprolol Tartrate (Lopressor) 25 mg EVERY 12 HOURS ORAL 07/31/18 21:00 08/30/18 20:59 08/02/18 09:48 Ondansetron HCl (Zofran) 4 mg Q6H PRN IVP Nausea & Vomiting 07/31/18 05:15 08/30/18 05:14 07/31/18 23:24 Polyethylene Glycol (Miralax) 17 gm DAILYPRN PRN ORAL Constipation 07/31/18 05:15 08/30/18 05:14 Elicia Berry DO Aug 02, 2018 13:58
--- NOTE | 2018-08-02 14:08 | Cardiac Electrophysiology PN ---
Assessment/Plan Assessment/Plan 1. Troponin leak. The level is low and flat 0.2, 0.1,0.08. Could be due to demand ischemia in view of her severe anemia. Echocardiogram showed normal left ventricular systolic function. She is only 27 years old. Urine toxicology screen also was positive for marijuana. Her D-dimer is also evaluated at 3.14, but lower extremity duplex is negative for DVT. CT angio couldn't be done. ? Stress test after anemia is corrected and PE excluded. 2. Severe anemia Hb [address] chest abdomen and pelvis pending. 3. Morbid obesity DW RN and Dr Sutherland. Subjective Subjective Alert in NAD. Awaiting CT Chest abdomen pelvis Objective Last 24 Hour Vital Signs Date Time Temp Pulse Resp B/P (MAP) Pulse Ox O2 Delivery O2 Flow Rate FiO2 08/02/18 13:42 99 20 98 Venturi Mask 8.0 40 08/02/18 13:36 98 20 97 Venturi Mask 8.0 40 08/02/18 12:00 90 08/02/18 12:00 98.7 93 20 102/52 (69) 98 98.7 08/02/18 09:48 98 109/68 08/02/18 09:00 Nasal Cannula 3.0 08/02/18 08:03 98 20 97 Venturi Mask 8.0 40 08/02/18 08:00 94 08/02/18 08:00 97.9 105 20 109/68 (82) 95 97.9 08/02/18 07:55 97 20 97 Venturi Mask 8.0 40 08/02/18 07:54 Venturi Mask 8.0 40 08/02/18 07:53 97 Venturi Mask 8.0 40 08/02/18 04:00 97.9 93 19 121/71 (88) 95 97.9 08/02/18 04:00 93 08/02/18 01:19 103 20 97 Venturi Mask 8.0 40 08/02/18 01:09 102 22 95 Venturi Mask 8.0 40 08/02/18 00:00 104 08/02/18 00:00 98.2 101 18 97/71 (80) 93 98.2 08/01/18 21:41 108 20 98 Nasal Cannula 3.0 32 08/01/18 21:31 107 20 96 Nasal Cannula 3.0 32 08/01/18 21:03 102 97/73 08/01/18 21:00 Nasal Cannula 3.0 08/01/18 20:05 102 08/01/18 20:00 97.7 102 26 97/73 (81) 93 97.7 08/01/18 19:37 Nasal Cannula 3.0 32 08/01/18 19:37 96 Nasal Cannula 3.0 32 08/01/18 19:37 99 20 Nasal Cannula 3.0 32 08/01/18 16:00 94 08/01/18 16:00 96.3 99 20 103/74 (84) 94 96.3 Intake and Output 08/01/18 08/02/18 19:00 07:00 Intake Total 370 ml 50 ml Output Total 750 ml Balance -380 ml 50 ml Intake Oral 370 ml 50 ml Output Urine Total 750 ml # Voids 2 # Bowel Movements 2 Objective HEAD AND NECK: No JVD or carotid bruits. LUNGS: Clear. CARDIOVASCULAR: Regular S1 and S2 with no gallop or murmur. ABDOMEN: Soft and morbidly obese. EXTREMITIES: No pitting edema. Bunny Arnett MD Aug 02, 2018 14:08
[2018-08-02 15:11] LABS: HEMATOCRIT 27.1 % (37.0-47.0); HEMOGLOBIN 7.4 G/DL (12.0-16.0); MEAN CORPUSCULAR VOLUME 55 FL (80-99); PLATELET COUNT 343 K/UL (150-450); RED BLOOD COUNT 4.92 M/UL (4.20-5.40); RED CELL DISTRIBUTION WIDTH 15.5 % (11.6-14.8); WHITE BLOOD COUNT 10.1 K/UL (4.8-10.8)
[2018-08-02 15:14] LABS: EOSINOPHILS % (AUTO) 0.6 % (0.0-3.0); LYMPHOCYTES % (AUTO) 35.3 % (20.0-45.0); MONOCYTES % (AUTO) 8.6 % (1.0-10.0); NEUTROPHILS % (AUTO) 54.5 % (45.0-75.0)
[2018-08-02 15:19] LABS: ANION GAP 10 mmol/L (5-15); BLOOD UREA NITROGEN 18 mg/dL (7-18); CALCIUM 8.4 MG/DL (8.5-10.1); CARBON DIOXIDE 23 MMOL/L (21-32); CHLORIDE 103 MMOL/L (98-107); CREATININE 0.9 MG/DL (0.55-1.30); POTASSIUM 4.4 MMOL/L (3.5-5.1); SODIUM 136 MMOL/L (136-145)
[2018-08-02 16:00] VITALS: BP 104/65
--- NOTE | 2018-08-02 16:16 | General Progress Note ---
Assessment/Plan Assessment/Plan Assessment/Plan # Severe anemia of iron deficiency - potentially menstrual related, reviewed pelvic us results --> Final results are pending for B12/folate, retic, FOBT reviewed and are negative --> iron panel shows anemia of iron deficiency --> have started iv iron x 5 days total --> CT c/a/p to r/o malignancy has been ordered may need [facility] --> gi eval as needed --> seen by pulm team # Atypical chest pain - potentially related to anemia, morbid obesity, r/o ACS given elevated troponin --> cardiology consulted, recs appreciated --> Trend trop/EKG, check lipid panel, A1C, TSH --> ASA 81mg daily # Shortness of breath - elevated d-dimer, r/o DVT/PE --> Pulmonology consulted --> Imaging as per pulm # Morbid obesity --> 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 # Homelessness --> SW consult as pt living in car w/ sister Greatly appreciate consult, have reviewed labs Subjective Constitutional: Denies: no symptoms, chills, diaphoresis, fever, malaise, weakness, other HEENT: Denies: no symptoms, eye pain, blurred vision, tearing, double vision, ear pain, ear discharge, nose pain, nose congestion, throat pain, throat swelling, mouth pain, mouth swelling, other Cardiovascular: Denies: no symptoms, chest pain, edema, irregular heart rate, lightheadedness, palpitations, syncope, other Respiratory: Denies: no symptoms, cough, orthopnea, shortness of breath, SOB with excertion, SOB at rest, sputum, stridor, wheezing, other Gastrointestinal/Abdominal: Denies: no symptoms, abdomen distended, abdominal pain, black stools, tarry stools, blood in stool, constipated, diarrhea, difficulty swallowing, nausea, poor appetite, poor fluid intake, rectal bleeding , vomiting, other Genitourinary: Denies: no symptoms, burning, discharge, frequency, flank pain, hematuria, incontinence, pain, urgency, other Neurologic/Psychiatric: Denies: no symptoms, anxiety, depressed, emotional problems, headache, numbness, paresthesia, pre-existing deficit, seizure, tingling, tremors, weakness, other Endocrine: Denies: no symptoms, excessive sweating, flushing, intolerance to cold, intolerance to heat, increased hunger, increased thirst, increased urine, unexplained weight gain, unexplained weight loss, other Hematologic/Lymphatic: Denies: no symptoms, anemia, easy bleeding, easy bruising, other Allergies: Coded Allergies: No Known Allergies (Unverified , 07/30/18) Subjective no pain, anemia panel reviewed, on iv iron Objective Last 24 Hour Vital Signs Date Time Temp Pulse Resp B/P (MAP) Pulse Ox O2 Delivery O2 Flow Rate FiO2 08/02/18 16:00 98.1 100 20 104/65 (78) 94 98.1 08/02/18 13:42 99 20 98 Venturi Mask 8.0 40 08/02/18 13:36 98 20 97 Venturi Mask 8.0 40 08/02/18 12:00 90 08/02/18 12:00 98.7 93 20 102/52 (69) 98 98.7 08/02/18 09:48 98 109/68 08/02/18 09:00 Nasal Cannula 3.0 08/02/18 08:03 98 20 97 Venturi Mask 8.0 40 08/02/18 08:00 94 08/02/18 08:00 97.9 105 20 109/68 (82) 95 97.9 08/02/18 07:55 97 20 97 Venturi Mask 8.0 40 08/02/18 07:54 Venturi Mask 8.0 40 08/02/18 07:53 97 Venturi Mask 8.0 40 08/02/18 04:00 97.9 93 19 121/71 (88) 95 97.9 08/02/18 04:00 93 08/02/18 01:19 103 20 97 Venturi Mask 8.0 40 08/02/18 01:09 102 22 95 Venturi Mask 8.0 40 08/02/18 00:00 104 08/02/18 00:00 98.2 101 18 97/71 (80) 93 98.2 08/01/18 21:41 108 20 98 Nasal Cannula 3.0 32 08/01/18 21:31 107 20 96 Nasal Cannula 3.0 32 08/01/18 21:03 102 97/73 08/01/18 21:00 Nasal Cannula 3.0 08/01/18 20:05 102 08/01/18 20:00 97.7 102 26 97/73 (81) 93 97.7 08/01/18 19:37 Nasal Cannula 3.0 32 08/01/18 19:37 96 Nasal Cannula 3.0 32 08/01/18 19:37 99 20 Nasal Cannula 3.0 32 Intake and Output 08/01/18 08/02/18 19:00 07:00 Intake Total 370 ml 50 ml Output Total 750 ml Balance -380 ml 50 ml Intake Oral 370 ml 50 ml Output Urine Total 750 ml # Voids 2 # Bowel Movements 2 Laboratory Tests 08/02/18 14:38: White Blood Count 10.1, Red Blood Count 4.92, Hemoglobin 7.4L, Hematocrit 27.1L , Mean Corpuscular Volume 55L, Mean Corpuscular Hemoglobin 15.1L, Mean Corpuscular Hemoglobin Concent 27.4L, Red Cell Distribution Width 15.5H, Platelet Count 343, Mean Platelet Volume 8.3, Neutrophils (%) (Auto) 54.5, Lymphocytes (%) (Auto) 35.3, Monocytes (%) (Auto) 8.6, Eosinophils (%) (Auto) 0.6, Basophils (%) (Auto) 1.0, Sodium Level 136, Potassium Level 4.4, Chloride Level 103, Carbon Dioxide Level 23, Anion Gap 10, Blood Urea Nitrogen 18, Creatinine 0.9, Estimat Glomerular Filtration Rate > 60, Glucose Level 114H, Calcium Level 8.4L, Magnesium Level 2.1 Height (Feet): 5 Height (Inches): 2.00 Weight (Pounds): 320 General Appearance: no apparent distress EENT: TMs normal Neck: supple Cardiovascular: regular rhythm Respiratory/Chest: no respiratory distress Abdomen: no organomegaly Extremities: non-tender Edema: 1+ Leg (L), 1+ Leg (R) Edema: mild edema Neurologic: alert Castillo Berry MD Aug 02, 2018 16:16
--- NOTE | 2018-08-02 19:41 | General Progress Note ---
Assessment/Plan Status: stable Assessment/Plan # Atypical chest pain with elevated troponin likely NSTEMI type 2 demand ischemia in setting of anemia - Cardiology consulted - Tele - Check TTE--per Dr. Hope BOYD wnl, awaiting final report - ASA 81mg daily # Shortness of breath - possible 2/2 PE vs severe anemia # Acute hypoxic respiratory failure - Pulmonology consulted - Unable to do CT 2/2 pt's weight - Check BLE venous duplex --> neg - Wean O2 as tolerated - Duonebs # Severe anemia 2/2 Fe def anemia, unclear etiology, r/o GI blood loss, malignancy - Heme/onc consulted - IV venofer started 08/01- - CT c/a/p unable to be done 2/2 pt's weights - Check pelvic U/S --> concern for ruptured ovarian cyst. 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 Disposition: Once the patient is stable to leave the hospital, I anticipate the patient will likely be discharged to the following environment: home I spent 42 minutes on this patient's case, and 23 minutes were dedicated to counseling and/or care coordination. Discussed with patient/family, nursing staff, SW/CM,cardiology, pulmonology regarding clinical status, treatment course , and disposition planning. Time of note may not reflect time of encounter. Subjective Date patient seen: Aug 02, 2018 Time patient seen: 10:02 ROS Limited/Unobtainable: No Constitutional: Reports: no symptoms HEENT: Reports: no symptoms Cardiovascular: Reports: chest pain Respiratory: Reports: shortness of breath Gastrointestinal/Abdominal: Reports: no symptoms Genitourinary: Reports: no symptoms Neurologic/Psychiatric: Reports: no symptoms Endocrine: Reports: no symptoms Hematologic/Lymphatic: Reports: no symptoms Allergies: Coded Allergies: No Known Allergies (Unverified , 07/30/18) Subjective No acute o/n events Unable to do CT or V/Q scan given pt's weight. Awaiting transfer to facility that is able to accommodate Pt cont to c/o shortness of breath, currently on venturi mask. Currently denies chest pain Objective Last 24 Hour Vital Signs Date Time Temp Pulse Resp B/P (MAP) Pulse Ox O2 Delivery O2 Flow Rate FiO2 08/02/18 19:32 95 Venturi Mask 8.0 40 08/02/18 19:32 105 20 95 Venturi Mask 8.0 40 08/02/18 19:32 Venturi Mask 8.0 40 08/02/18 16:00 98.1 100 20 104/65 (78) 94 98.1 08/02/18 16:00 98 08/02/18 13:42 99 20 98 Venturi Mask 8.0 40 08/02/18 13:36 98 20 97 Venturi Mask 8.0 40 08/02/18 12:00 90 08/02/18 12:00 98.7 93 20 102/52 (69) 98 98.7 08/02/18 09:48 98 109/68 08/02/18 09:00 Nasal Cannula 3.0 08/02/18 08:03 98 20 97 Venturi Mask 8.0 40 08/02/18 08:00 94 08/02/18 08:00 97.9 105 20 109/68 (82) 95 97.9 08/02/18 07:55 97 20 97 Venturi Mask 8.0 40 08/02/18 07:54 Venturi Mask 8.0 40 08/02/18 07:53 97 Venturi Mask 8.0 40 08/02/18 04:00 97.9 93 19 121/71 (88) 95 97.9 08/02/18 04:00 93 08/02/18 01:19 103 20 97 Venturi Mask 8.0 40 08/02/18 01:09 102 22 95 Venturi Mask 8.0 40 08/02/18 00:00 104 08/02/18 00:00 98.2 101 18 97/71 (80) 93 98.2 08/01/18 21:41 108 20 98 Nasal Cannula 3.0 32 08/01/18 21:31 107 20 96 Nasal Cannula 3.0 32 08/01/18 21:03 102 97/73 08/01/18 21:00 Nasal Cannula 3.0 08/01/18 20:05 102 08/01/18 20:00 97.7 102 26 97/73 (81) 93 97.7 Intake and Output 08/01/18 08/02/18 19:00 07:00 Intake Total 370 ml 50 ml Output Total 750 ml Balance -380 ml 50 ml Intake Oral 370 ml 50 ml Output Urine Total 750 ml # Voids 2 # Bowel Movements 2 Laboratory Tests 08/02/18 14:38: White Blood Count 10.1, Red Blood Count 4.92, Hemoglobin 7.4L, Hematocrit 27.1L , Mean Corpuscular Volume 55L, Mean Corpuscular Hemoglobin 15.1L, Mean Corpuscular Hemoglobin Concent 27.4L, Red Cell Distribution Width 15.5H, Platelet Count 343, Mean Platelet Volume 8.3, Neutrophils (%) (Auto) 54.5, Lymphocytes (%) (Auto) 35.3, Monocytes (%) (Auto) 8.6, Eosinophils (%) (Auto) 0.6, Basophils (%) (Auto) 1.0, Sodium Level 136, Potassium Level 4.4, Chloride Level 103, Carbon Dioxide Level 23, Anion Gap 10, Blood Urea Nitrogen 18, Creatinine 0.9, Estimat Glomerular Filtration Rate > 60, Glucose Level 114H, Calcium Level 8.4L, Magnesium Level 2.1 Height (Feet): 5 Height (Inches): 2.00 Weight (Pounds): 320 Objective General: alert, cooperative, no distress, appears stated age, morbidly obese Head: normocephalic, without obvious abnormality, atraumatic Eyes: conjunctivae/corneas clear. PERRL, EOM's intact Throat: lips, mucosa, and tongue normal. MMM Neck: supple, symmetrical, trachea midline; difficult to visualize JVD Lungs: clear to auscultation bilaterally Heart: regular rate and rhythm, S1, S2 normal, no murmur, click, rub or gallop Abdomen: soft, non-tender, non-distended, bowel sounds normal; obese abd Extremities: extremities normal, atraumatic, no cyanosis, +BLE edema Pulses: 2+ and symmetric Skin: skin color, texture, turgor normal; no rashes or lesions Neurologic: grossly normal, no focal deficits Kwan Thakur M.D. Aug 02, 2018 19:41
[2018-08-02 20:00] VITALS: BP 118/72
[2018-08-02] MEDS: Dyna-Hex 2% Top Sol 2oz TOPIC SCH (20:00)
--- NOTE | 2018-08-02 20:30 | Consultation ---
DATE OF CONSULTATION: 08/02/2018 GASTROENTEROLOGY CONSULTATION CONSULTING PHYSICIAN: Rubén Hernadez M.D. CHIEF COMPLAINT: I was asked to see this patient by Dr. Rohan Sutherland for evaluation of anemia. HISTORY OF PRESENT ILLNESS: The patient is a 27-year-old woman with morbid obesity, who came in to the hospital with chest pain and shortness of breath. The patient has been seen by multiple consultants or other issues are being addressed separately The patient was found to have a significant degree of anemia. She does not have any GI symptomatology such as nausea, vomiting, or hematochezia. She does however continually have pyrosis for which she takes [id number] remedies. The patient does have heavy menstrual cycles and actually had two menstrual cycles a month, which were heavy. She was unaware of her anemia, never has been any need for GI workup or GI evaluation. PAST MEDICAL HISTORY: History of morbid obesity. PAST SURGICAL HISTORY: None. FAMILY HISTORY: Positive for heart disease in her mother. SOCIAL HISTORY: The patient is homeless and lives with her sister in a car REVIEW OF SYSTEMS: Otherwise negative. PHYSICAL EXAMINATION: GENERAL: This is a morbidly obese woman, seen in her room with a sister at the bedside. HEENT: Normocephalic and atraumatic. NECK: Supple. CHEST: Coarse breath sounds. CARDIOVASCULAR: Revealed regular rate. ABDOMEN: Obese. Good bowel sounds. Nontender. EXTREMITIES: Revealed 2+ bilateral edema. NEUROLOGIC: Grossly nonfocal. LABORATORY DATA: Laboratory data were noted. ASSESSMENT: This patient presents with anemia, which in her age group and with her heavy two menstrual cycles a month is likely due to menstrual losses. There is no significant upper GI symptomatology to suggest GI tract disease. However, stool occult blood can be checked to see if there is any positive stools and if there is then a gastrointestinal workup may be considered. The patient is currently having menstrual cycle so I will follow according to the stool evaluation now until it has passed. RECOMMENDATIONS: 1. Follow CBC. 2. Iron supplementation. 3. Check stool occult blood at a later date. 4. Consider gynecological consultation. Thank you for asking me to participate in the care of this patient. Rubén Hernadez M.D. DR: LINDA JOB#: [id number] CC: JENNY
[2018-08-02] MEDS: Iron Sucrose 100 MG in NS 55 ML IV SCH (20:43)
[2018-08-03] VITALS: BP 139/85
[2018-08-03] MEDS: Albuterol/Ipratropium 3ml neb HHN SCH ×4 (01:35→19:34)
[2018-08-03 03:54] VITALS: BP 118/71
[2018-08-03 08:00] VITALS: BP 97/66
[2018-08-03] MEDS ORDERED: Miralax 17gm pkt ORAL PRN (08:15)
[2018-08-03] MEDS: Docusate 100mg cap ORAL SCH ×2 (08:43→18:00)
[2018-08-03] MEDS: Aspirin Baby 81mg ORAL SCH (08:43)
[2018-08-03] MEDS: Metoprolol 25mg tab ORAL SCH ×2 (08:44→20:49)
[2018-08-03] MEDS: Heparin 5000 units/ml inj SUBQ SCH ×3 (09:00→18:00)
[2018-08-03 10:26] LABS: HEMATOCRIT 28.4 % (37.0-47.0); HEMOGLOBIN 7.9 G/DL (12.0-16.0); MEAN CORPUSCULAR VOLUME 55 FL (80-99); PLATELET COUNT 344 K/UL (150-450); RED BLOOD COUNT 5.18 M/UL (4.20-5.40); RED CELL DISTRIBUTION WIDTH 15.4 % (11.6-14.8); WHITE BLOOD COUNT 10.1 K/UL (4.8-10.8)
--- NOTE | 2018-08-03 10:30 | General Progress Note ---
Assessment/Plan Status: stable Assessment/Plan # Atypical chest pain with elevated troponin likely NSTEMI type 2 demand ischemia in setting of anemia - Cardiology consulted - Tele - Check TTE--EF wnl - ASA 81mg daily # Shortness of breath - possible 2/2 PE vs severe anemia # Acute hypoxic respiratory failure - Pulmonology consulted - Unable to do CT 2/2 pt's weight - Check BLE venous duplex --> neg - Wean O2 as tolerated - Duonebs # Severe anemia 2/2 Fe def anemia, unclear etiology, r/o GI blood loss, malignancy - Heme/onc consulted - IV venofer started 08/01- - CT c/a/p unable to be done 2/2 pt's weights - Check pelvic U/S --> concern for ruptured ovarian cyst. 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 Disposition: Once the patient is stable to leave the hospital, I anticipate the patient will likely be discharged to the following environment: home I spent 40 minutes on this patient's case, and 22 minutes were dedicated to counseling and/or care coordination. Discussed with patient/family, nursing staff, SW/CM,cardiology, pulmonology regarding clinical status, treatment course , and disposition planning. Time of note may not reflect time of encounter. Subjective Date patient seen: Aug 03, 2018 Time patient seen: 10:28 ROS Limited/Unobtainable: No Constitutional: Reports: no symptoms HEENT: Reports: no symptoms Cardiovascular: Reports: chest pain Respiratory: Reports: shortness of breath Gastrointestinal/Abdominal: Reports: abdominal pain Genitourinary: Reports: no symptoms Neurologic/Psychiatric: Reports: no symptoms Endocrine: Reports: no symptoms Hematologic/Lymphatic: Reports: no symptoms Allergies: Coded Allergies: No Known Allergies (Unverified , 07/30/18) Subjective No acute o/n events Unable to do CT or V/Q scan given pt's weight. Awaiting transfer to facility that is able to accommodate Pt cont to c/o shortness of breath, now on NC Currently denies chest pain Pt notes heavy vaginal bleeding for the past 10 years Objective Last 24 Hour Vital Signs Date Time Temp Pulse Resp B/P (MAP) Pulse Ox O2 Delivery O2 Flow Rate FiO2 08/03/18 09:00 Venturi Mask 10.0 08/03/18 08:44 100 97/66 08/03/18 08:12 106 18 95 Venturi Mask 8.0 40 08/03/18 08:04 102 18 92 Venturi Mask 8.0 40 08/03/18 08:04 92 Venturi Mask 8.0 40 08/03/18 08:04 Venturi Mask 8.0 40 08/03/18 08:00 102 08/03/18 08:00 98.0 100 20 97/66 (76) 92 98.0 08/03/18 04:00 102 08/03/18 03:54 97.9 60 20 118/71 (87) 99 97.9 08/03/18 01:45 95 20 97 Venturi Mask 8.0 40 08/03/18 01:35 95 20 97 Venturi Mask 8.0 40 08/03/18 00:00 98 08/03/18 00:00 98.1 97 20 139/85 (103) 97 98.1 08/02/18 21:00 Venturi Mask 10.0 08/02/18 20:41 104 118/72 08/02/18 20:00 103 08/02/18 20:00 97.3 104 20 118/72 (87) 94 97.3 08/02/18 19:42 102 20 97 Venturi Mask 8.0 40 08/02/18 19:32 95 Venturi Mask 8.0 40 08/02/18 19:32 105 20 95 Venturi Mask 8.0 40 08/02/18 19:32 Venturi Mask 8.0 40 08/02/18 16:00 98.1 100 20 104/65 (78) 94 98.1 08/02/18 16:00 98 08/02/18 13:42 99 20 98 Venturi Mask 8.0 40 08/02/18 13:36 98 20 97 Venturi Mask 8.0 40 08/02/18 12:00 90 08/02/18 12:00 98.7 93 20 102/52 (69) 98 98.7 Intake and Output 08/02/18 08/03/18 19:00 07:00 Intake Total 360 ml 120 ml Balance 360 ml 120 ml Intake Oral 360 ml 120 ml # Voids 2 Laboratory Tests 08/02/18 14:38: White Blood Count 10.1, Red Blood Count 4.92, Hemoglobin 7.4L, Hematocrit 27.1L , Mean Corpuscular Volume 55L, Mean Corpuscular Hemoglobin 15.1L, Mean Corpuscular Hemoglobin Concent 27.4L, Red Cell Distribution Width 15.5H, Platelet Count 343, Mean Platelet Volume 8.3, Neutrophils (%) (Auto) 54.5, Lymphocytes (%) (Auto) 35.3, Monocytes (%) (Auto) 8.6, Eosinophils (%) (Auto) 0.6, Basophils (%) (Auto) 1.0, Sodium Level 136, Potassium Level 4.4, Chloride Level 103, Carbon Dioxide Level 23, Anion Gap 10, Blood Urea Nitrogen 18, Creatinine 0.9, Estimat Glomerular Filtration Rate > 60, Glucose Level 114H, Calcium Level 8.4L, Magnesium Level 2.1 08/03/18 10:15: White Blood Count [Pending], Red Blood Count [Pending], Hemoglobin [Pending], Hematocrit [Pending], Mean Corpuscular Volume [Pending], Mean Corpuscular Hemoglobin [Pending], Mean Corpuscular Hemoglobin Concent [Pending], Red Cell Distribution Width [Pending], Platelet Count [Pending], Mean Platelet Volume [ Pending], Neutrophils (%) (Auto) [Pending], Lymphocytes (%) (Auto) [Pending], Monocytes (%) (Auto) [Pending], Eosinophils (%) (Auto) [Pending], Basophils (%) (Auto) [Pending], Sodium Level [Pending], Potassium Level [Pending], Chloride Level [Pending], Carbon Dioxide Level [Pending], Blood Urea Nitrogen [Pending], Creatinine [Pending], Estimat Glomerular Filtration Rate [Pending], Glucose Level [Pending], Calcium Level [Pending] Height (Feet): 5 Height (Inches): 2.00 Weight (Pounds): 320 Objective General: alert, cooperative, no distress, appears stated age, morbidly obese Head: normocephalic, without obvious abnormality, atraumatic Eyes: conjunctivae/corneas clear. PERRL, EOM's intact Throat: lips, mucosa, and tongue normal. MMM Neck: supple, symmetrical, trachea midline; difficult to visualize JVD Lungs: clear to auscultation bilaterally Heart: regular rate and rhythm, S1, S2 normal, no murmur, click, rub or gallop Abdomen: soft, non-tender, non-distended, bowel sounds normal; obese abd Extremities: extremities normal, atraumatic, no cyanosis, +BLE edema Pulses: 2+ and symmetric Skin: skin color, texture, turgor normal; no rashes or lesions Neurologic: grossly normal, no focal deficits Kwan Thakur M.D. Aug 03, 2018 10:30
[2018-08-03 10:35] LABS: ANION GAP 7 mmol/L (5-15); BLOOD UREA NITROGEN 14 mg/dL (7-18); CALCIUM 8.3 MG/DL (8.5-10.1); CARBON DIOXIDE 26 MMOL/L (21-32); CHLORIDE 103 MMOL/L (98-107); CREATININE 0.9 MG/DL (0.55-1.30); SODIUM 136 MMOL/L (136-145)
--- NOTE | 2018-08-03 11:12 | General Progress Note ---
Assessment/Plan Assessment/Plan Assessment - Iron deficiency anemia, likely menstrual etiology - Morbid obesity - Edema Recommendations - IV Fe - check stool OB once menses over Subjective Allergies: Coded Allergies: No Known Allergies (Unverified , 07/30/18) Subjective Resting comfortably no events overnight Objective Last 24 Hour Vital Signs Date Time Temp Pulse Resp B/P (MAP) Pulse Ox O2 Delivery O2 Flow Rate FiO2 08/03/18 09:00 Venturi Mask 10.0 08/03/18 08:44 100 97/66 08/03/18 08:12 106 18 95 Venturi Mask 8.0 40 08/03/18 08:04 102 18 92 Venturi Mask 8.0 40 08/03/18 08:04 92 Venturi Mask 8.0 40 08/03/18 08:04 Venturi Mask 8.0 40 08/03/18 08:00 102 08/03/18 08:00 98.0 100 20 97/66 (76) 92 98.0 08/03/18 04:00 102 08/03/18 03:54 97.9 60 20 118/71 (87) 99 97.9 08/03/18 01:45 95 20 97 Venturi Mask 8.0 40 08/03/18 01:35 95 20 97 Venturi Mask 8.0 40 08/03/18 00:00 98 08/03/18 00:00 98.1 97 20 139/85 (103) 97 98.1 08/02/18 21:00 Venturi Mask 10.0 08/02/18 20:41 104 118/72 08/02/18 20:00 103 08/02/18 20:00 97.3 104 20 118/72 (87) 94 97.3 08/02/18 19:42 102 20 97 Venturi Mask 8.0 40 08/02/18 19:32 95 Venturi Mask 8.0 40 08/02/18 19:32 105 20 95 Venturi Mask 8.0 40 08/02/18 19:32 Venturi Mask 8.0 40 08/02/18 16:00 98.1 100 20 104/65 (78) 94 98.1 08/02/18 16:00 98 08/02/18 13:42 99 20 98 Venturi Mask 8.0 40 08/02/18 13:36 98 20 97 Venturi Mask 8.0 40 08/02/18 12:00 90 08/02/18 12:00 98.7 93 20 102/52 (69) 98 98.7 Intake and Output 08/02/18 08/03/18 19:00 07:00 Intake Total 360 ml 120 ml Balance 360 ml 120 ml Intake Oral 360 ml 120 ml # Voids 2 Laboratory Tests 08/02/18 14:38: White Blood Count 10.1, Red Blood Count 4.92, Hemoglobin 7.4L, Hematocrit 27.1L , Mean Corpuscular Volume 55L, Mean Corpuscular Hemoglobin 15.1L, Mean Corpuscular Hemoglobin Concent 27.4L, Red Cell Distribution Width 15.5H, Platelet Count 343, Mean Platelet Volume 8.3, Neutrophils (%) (Auto) 54.5, Lymphocytes (%) (Auto) 35.3, Monocytes (%) (Auto) 8.6, Eosinophils (%) (Auto) 0.6, Basophils (%) (Auto) 1.0, Sodium Level 136, Potassium Level 4.4, Chloride Level 103, Carbon Dioxide Level 23, Anion Gap 10, Blood Urea Nitrogen 18, Creatinine 0.9, Estimat Glomerular Filtration Rate > 60, Glucose Level 114H, Calcium Level 8.4L, Magnesium Level 2.1 08/03/18 10:15: White Blood Count 10.1, Red Blood Count 5.18, Hemoglobin 7.9L, Hematocrit 28.4L , Mean Corpuscular Volume 55L, Mean Corpuscular Hemoglobin 15.2L, Mean Corpuscular Hemoglobin Concent 27.8L, Red Cell Distribution Width 15.4H, Platelet Count 344, Mean Platelet Volume 6.2L, Neutrophils (%) (Auto) , Lymphocytes (%) (Auto) , Monocytes (%) (Auto) , Eosinophils (%) (Auto) , Basophils (%) (Auto) , Sodium Level 136, Potassium Level 4.0, Chloride Level 103 , Carbon Dioxide Level 26, Anion Gap 7, Blood Urea Nitrogen 14, Creatinine 0.9, Estimat Glomerular Filtration Rate > 60, Glucose Level 120H, Calcium Level 8.3L , Neutrophils % (Manual) [Pending], Lymphocytes % (Manual) [Pending], Platelet Estimate [Pending], Platelet Morphology [Pending] Height (Feet): 5 Height (Inches): 2.00 Weight (Pounds): 320 Objective Obese AA woman NCAT CTA RR abd soft (+) edema Rubén Hernadez MD Aug 03, 2018 11:12
--- NOTE | 2018-08-03 11:32 | Pulmonology Progress Note ---
Assessment/Plan Assessment/Plan Atypical CP Elevated cardiac biomarkers, downtrending, likely demand ischemia Elevated D-dimer and negative duplex, VQ and CT cannot be done 2/2 size Microcytic anemia/BRAULIO H/O heavy menses Morbid obesity Snoring, likely JUAN/OHV PLAN: Echo still pending Risk/benefits of A/C need to be be considered in light of an uncertain diagnosis , underlying anemia and possible bleeding For now continue Hep SQ TID, if any e/o R heart strain on her TTE or change in her clinical presentation would start IVUH immediately I called [facility], the ER scanner has a weight limit of 675 lbs and a circumference max of 72 in. she is [address] [facility] F/U cards recs PRBC if less htan 7 ? [employer] eval F/U TTE F/U FOBT, GI eval F/U HEME recs, continue VENOFER Will need a sleep study as an outpatient DVT Px: Hep SQ TID SW eval Subjective Constitutional: Reports: no symptoms HEENT: Repors: no symptoms Respiratory: Reports: dry cough Cardiovascular: Reports: chest pain Gastrointestinal/Abdominal: Reports: no symptoms Genitourinary: Reports: no symptoms Neurologic: Reports: no symptoms Allergies: Coded Allergies: No Known Allergies (Unverified , 07/30/18) Subjective still complains of shortness of breath and cough no cp nv ? still bleeding, thinks it stopped, has been occurring for 10 years tolerating po not getting oob as she thinks she will pass out Objective Last 24 Hour Vital Signs Date Time Temp Pulse Resp B/P (MAP) Pulse Ox O2 Delivery O2 Flow Rate FiO2 08/03/18 09:00 Venturi Mask 10.0 08/03/18 08:44 100 97/66 08/03/18 08:12 106 18 95 Venturi Mask 8.0 40 08/03/18 08:04 102 18 92 Venturi Mask 8.0 40 08/03/18 08:04 92 Venturi Mask 8.0 40 08/03/18 08:04 Venturi Mask 8.0 40 08/03/18 08:00 102 08/03/18 08:00 98.0 100 20 97/66 (76) 92 98.0 08/03/18 04:00 102 08/03/18 03:54 97.9 60 20 118/71 (87) 99 97.9 08/03/18 01:45 95 20 97 Venturi Mask 8.0 40 08/03/18 01:35 95 20 97 Venturi Mask 8.0 40 08/03/18 00:00 98 08/03/18 00:00 98.1 97 20 139/85 (103) 97 98.1 08/02/18 21:00 Venturi Mask 10.0 08/02/18 20:41 104 118/72 08/02/18 20:00 103 08/02/18 20:00 97.3 104 20 118/72 (87) 94 97.3 08/02/18 19:42 102 20 97 Venturi Mask 8.0 40 08/02/18 19:32 95 Venturi Mask 8.0 40 08/02/18 19:32 105 20 95 Venturi Mask 8.0 40 08/02/18 19:32 Venturi Mask 8.0 40 08/02/18 16:00 98.1 100 20 104/65 (78) 94 98.1 08/02/18 16:00 98 08/02/18 13:42 99 20 98 Venturi Mask 8.0 40 08/02/18 13:36 98 20 97 Venturi Mask 8.0 40 08/02/18 12:00 90 08/02/18 12:00 98.7 93 20 102/52 (69) 98 98.7 Intake and Output 08/02/18 08/03/18 19:00 07:00 Intake Total 360 ml 120 ml Balance 360 ml 120 ml Intake Oral 360 ml 120 ml # Voids 2 General Appearance: WD/WN Respiratory/Chest: rhonchi Cardiovascular: normal rate, regular rhythm Abdomen: soft, non tender, no organomegaly Extremities: no cyanosis Neurologic/Psychiatric: alert, oriented x 3, normal mood/affect Lymphatic: no groin adenopathy Laboratory Tests 08/02/18 14:38: White Blood Count 10.1, Red Blood Count 4.92, Hemoglobin 7.4L, Hematocrit 27.1L , Mean Corpuscular Volume 55L, Mean Corpuscular Hemoglobin 15.1L, Mean Corpuscular Hemoglobin Concent 27.4L, Red Cell Distribution Width 15.5H, Platelet Count 343, Mean Platelet Volume 8.3, Neutrophils (%) (Auto) 54.5, Lymphocytes (%) (Auto) 35.3, Monocytes (%) (Auto) 8.6, Eosinophils (%) (Auto) 0.6, Basophils (%) (Auto) 1.0, Sodium Level 136, Potassium Level 4.4, Chloride Level 103, Carbon Dioxide Level 23, Anion Gap 10, Blood Urea Nitrogen 18, Creatinine 0.9, Estimat Glomerular Filtration Rate > 60, Glucose Level 114H, Calcium Level 8.4L, Magnesium Level 2.1 08/03/18 10:15: White Blood Count 10.1, Red Blood Count 5.18, Hemoglobin 7.9L, Hematocrit 28.4L , Mean Corpuscular Volume 55L, Mean Corpuscular Hemoglobin 15.2L, Mean Corpuscular Hemoglobin Concent 27.8L, Red Cell Distribution Width 15.4H, Platelet Count 344, Mean Platelet Volume 6.2L, Neutrophils (%) (Auto) , Lymphocytes (%) (Auto) , Monocytes (%) (Auto) , Eosinophils (%) (Auto) , Basophils (%) (Auto) , Sodium Level 136, Potassium Level 4.0, Chloride Level 103 , Carbon Dioxide Level 26, Anion Gap 7, Blood Urea Nitrogen 14, Creatinine 0.9, Estimat Glomerular Filtration Rate > 60, Glucose Level 120H, Calcium Level 8.3L , Differential Total Cells Counted 100, Neutrophils % (Manual) 57, Lymphocytes % (Manual) 37, Monocytes % (Manual) 6, Eosinophils % (Manual) 0, Basophils % ( Manual) 0, Band Neutrophils 0, Nucleated Red Blood Cells 2, Platelet Estimate Adequate, Platelet Morphology Normal, Polychromasia 2+, Hypochromasia 3+, Anisocytosis 1+, Microcytosis 2+ Current Medications Medications (Trade) Dose Ordered Sig/Destini Route PRN Reason Start Time Stop Time Status Last Admin Dose Admin Acetaminophen (Tylenol) 650 mg Q4H PRN ORAL Mild Pain (Pain Scale 1-3) 07/31/18 05:15 08/30/18 05:14 Acetaminophen (Tylenol) 650 mg Q4H PRN ORAL fever 07/31/18 05:15 08/30/18 05:14 Albuterol/ Ipratropium (Albuterol/ Ipratropium) 3 ml Q4H PRN HHN Shortness of Breath 08/01/18 21:15 08/06/18 21:14 08/01/18 21:30 Albuterol/ Ipratropium (Albuterol/ Ipratropium) 3 ml Q6HRT HHN 08/02/18 01:00 08/07/18 00:59 08/03/18 08:04 Aspirin (ASA) 81 mg DAILY ORAL 07/31/18 09:00 08/30/18 08:59 08/03/18 08:43 Bisacodyl (Dulcolax) 10 mg DAILYPRN PRN RECTAL Constipation 08/03/18 08:10 08/30/18 05:14 Chlorhexidine Gluconate (Mary-Hex 2%) 1 applic DAILY@2000 TOPIC 08/02/18 20:00 09/01/18 19:59 Dextrose (Dextrose 50%) 25 ml STAT PRN IV Hypoglycemia 07/31/18 05:15 08/30/18 05:14 Dextrose (Dextrose 50%) 50 ml STAT PRN IV Hypoglycemia 07/31/18 05:15 08/30/18 05:14 Docusate Sodium (Colace) 100 mg TWICE A DAY ORAL 08/03/18 09:00 09/02/18 08:59 08/03/18 08:43 Heparin Sodium (Porcine) (Heparin 5000 units/ml) 5,000 units TID SUBQ 08/02/18 09:00 08/30/18 08:59 Iron Sucrose 100 mg/Sodium Chloride 60 ml @ 240 mls/hr QHS IV 08/01/18 21:00 08/05/18 21:14 08/01/18 20:52 Metoprolol Tartrate (Lopressor) 25 mg EVERY 12 HOURS ORAL 07/31/18 21:00 08/30/18 20:59 08/03/18 08:44 Ondansetron HCl (Zofran) 4 mg Q6H PRN IVP Nausea & Vomiting 07/31/18 05:15 08/30/18 05:14 07/31/18 23:24 Polyethylene Glycol (Miralax) 17 gm DAILY PRN ORAL Constipation 08/03/18 08:15 09/02/18 08:14 Elicia Berry DO Aug 03, 2018 11:32
--- NOTE | 2018-08-03 11:46 | Consultation ---
History of Present Illness General Date patient seen: Aug 03, 2018 Chief Complaint: Chest Pain Reason for Consultation: vascular access Present Illness HPI 27 year old female morbidly obese presented with SOB, CP, weight gain. Upon admission noted to be anemic. States usually independent but recently has had difficulty with ambulation because of dyspnea. She is very very morbidly obese. States she has been gaining weight for some time now. Does not have any dietary restrictions and eats significantly more than recommended caloric intake per day. H/H trending down and with symptoms concerns for need of blood transfusion. Unfortunately given her size and body habitus peripheral line is extremely difficult and multiple attempts made using different techniques without success. Surgery called to evaluate and assist with vacular access. patient seen, chart reviewed, patient examined. Allergies: Coded Allergies: No Known Allergies (Unverified , 07/30/18) Medication History Scheduled Cephalexin* (Keflex*), 500 MG ORAL Q6H Doxycycline Monohydrate* (Doxycycline Monohydrate*), 100 MG ORAL TWICE A DAY No Known Medications* (NKM - No Known Medications*), 0 ., (Reported) Scheduled PRN Ibuprofen* (Motrin*), 600 MG ORAL Q8H PRN for For Pain Durable Medical Equipment Comp.stocking,Knee,Regular,Lrg (Truform Compression Stocking), EACH [facility], (DME) Patient History History Provided By: Patient, Medical Record, PMD Healthcare decision maker Resuscitation status Full Code Advanced Directive on File No Past Medical/Surgical History Past Medical/Surgical History: (1) Anemia (2) Chest pain (3) Vaginal discharge (4) Pedal edema (5) Cannabis abuse Review of Systems All Other Systems: negative except mentioned in HPI Physical Exam General Appearance: no apparent distress Lines, tubes and drains: other - none HEENT: mucous membranes moist, PERRL Neck: supple, normal inspection Respiratory/Chest: no respiratory distress, no accessory muscle use Cardiovascular/Chest: normal rate, regular rhythm Abdomen: soft, no organomegaly, no mass, other - obese Extremities: moderate edema Skin Exam: warm/dry Neurologic: alert, oriented x 3 Last 24 Hour Vital Signs Date Time Temp Pulse Resp B/P (MAP) Pulse Ox O2 Delivery O2 Flow Rate FiO2 08/03/18 09:00 Venturi Mask 10.0 08/03/18 08:44 100 97/66 08/03/18 08:12 106 18 95 Venturi Mask 8.0 40 08/03/18 08:04 102 18 92 Venturi Mask 8.0 40 08/03/18 08:04 92 Venturi Mask 8.0 40 08/03/18 08:04 Venturi Mask 8.0 40 08/03/18 08:00 102 08/03/18 08:00 98.0 100 20 97/66 (76) 92 98.0 08/03/18 04:00 102 08/03/18 03:54 97.9 60 20 118/71 (87) 99 97.9 08/03/18 01:45 95 20 97 Venturi Mask 8.0 40 08/03/18 01:35 95 20 97 Venturi Mask 8.0 40 08/03/18 00:00 98 08/03/18 00:00 98.1 97 20 139/85 (103) 97 98.1 08/02/18 21:00 Venturi Mask 10.0 08/02/18 20:41 104 118/72 08/02/18 20:00 103 08/02/18 20:00 97.3 104 20 118/72 (87) 94 97.3 08/02/18 19:42 102 20 97 Venturi Mask 8.0 40 08/02/18 19:32 95 Venturi Mask 8.0 40 08/02/18 19:32 105 20 95 Venturi Mask 8.0 40 08/02/18 19:32 Venturi Mask 8.0 40 08/02/18 16:00 98.1 100 20 104/65 (78) 94 98.1 08/02/18 16:00 98 08/02/18 13:42 99 20 98 Venturi Mask 8.0 40 08/02/18 13:36 98 20 97 Venturi Mask 8.0 40 08/02/18 12:00 90 08/02/18 12:00 98.7 93 20 102/52 (69) 98 98.7 Intake and Output 08/02/18 08/03/18 19:00 07:00 Intake Total 360 ml 120 ml Balance 360 ml 120 ml Intake Oral 360 ml 120 ml # Voids 2 Laboratory Tests Test 08/02/18 14:38 08/03/18 10:15 White Blood Count 10.1 K/UL (4.8-10.8) 10.1 K/UL (4.8-10.8) Red Blood Count 4.92 M/UL (4.20-5.40) 5.18 M/UL (4.20-5.40) Hemoglobin 7.4 G/DL (12.0-16.0) L 7.9 G/DL (12.0-16.0) L Hematocrit 27.1 % (37.0-47.0) L 28.4 % (37.0-47.0) L Mean Corpuscular Volume 55 FL (80-99) L 55 FL (80-99) L Mean Corpuscular Hemoglobin 15.1 PG (27.0-31.0) L 15.2 PG (27.0-31.0) L Mean Corpuscular Hemoglobin Concent 27.4 G/DL (32.0-36.0) L 27.8 G/DL (32.0-36.0) L Red Cell Distribution Width 15.5 % (11.6-14.8) H 15.4 % (11.6-14.8) H Platelet Count 343 K/UL (150-450) 344 K/UL (150-450) Mean Platelet Volume 8.3 FL (6.5-10.1) 6.2 FL (6.5-10.1) L Neutrophils (%) (Auto) 54.5 % (45.0-75.0) % (45.0-75.0) Lymphocytes (%) (Auto) 35.3 % (20.0-45.0) % (20.0-45.0) Monocytes (%) (Auto) 8.6 % (1.0-10.0) % (1.0-10.0) Eosinophils (%) (Auto) 0.6 % (0.0-3.0) % (0.0-3.0) Basophils (%) (Auto) 1.0 % (0.0-2.0) % (0.0-2.0) Sodium Level 136 MMOL/L (136-145) 136 MMOL/L (136-145) Potassium Level 4.4 MMOL/L (3.5-5.1) 4.0 MMOL/L (3.5-5.1) Chloride Level 103 MMOL/L (98-107) 103 MMOL/L (98-107) Carbon Dioxide Level 23 MMOL/L (21-32) 26 MMOL/L (21-32) Anion Gap 10 mmol/L (5-15) 7 mmol/L (5-15) Blood Urea Nitrogen 18 mg/dL (7-18) 14 mg/dL (7-18) Creatinine 0.9 MG/DL (0.55-1.30) 0.9 MG/DL (0.55-1.30) Estimat Glomerular Filtration Rate > 60 mL/min (>60) > 60 mL/min (>60) Glucose Level 114 MG/DL (74-106) H 120 MG/DL (74-106) H Calcium Level 8.4 MG/DL (8.5-10.1) L 8.3 MG/DL (8.5-10.1) L Magnesium Level 2.1 MG/DL (1.8-2.4) Differential Total Cells Counted 100 Neutrophils % (Manual) 57 % (45-75) Lymphocytes % (Manual) 37 % (20-45) Monocytes % (Manual) 6 % (1-10) Eosinophils % (Manual) 0 % (0-3) Basophils % (Manual) 0 % (0-2) Band Neutrophils 0 % (0-8) Nucleated Red Blood Cells 2 /100 WBC Platelet Estimate Adequate Platelet Morphology Normal Polychromasia 2+ Hypochromasia 3+ Anisocytosis 1+ Microcytosis 2+ Height (Feet): 5 Height (Inches): 2.00 Weight (Pounds): 320 Medications Current Medications Medications (Trade) Dose Ordered Sig/Destini Route PRN Reason Start Time Stop Time Status Last Admin Dose Admin Acetaminophen (Tylenol) 650 mg Q4H PRN ORAL Mild Pain (Pain Scale 1-3) 07/31/18 05:15 08/30/18 05:14 Acetaminophen (Tylenol) 650 mg Q4H PRN ORAL fever 07/31/18 05:15 08/30/18 05:14 Albuterol/ Ipratropium (Albuterol/ Ipratropium) 3 ml Q4H PRN HHN Shortness of Breath 08/01/18 21:15 08/06/18 21:14 08/01/18 21:30 Albuterol/ Ipratropium (Albuterol/ Ipratropium) 3 ml Q6HRT HHN 08/02/18 01:00 08/07/18 00:59 08/03/18 08:04 Aspirin (ASA) 81 mg DAILY ORAL 07/31/18 09:00 08/30/18 08:59 08/03/18 08:43 Bisacodyl (Dulcolax) 10 mg DAILYPRN PRN RECTAL Constipation 08/03/18 08:10 08/30/18 05:14 Chlorhexidine Gluconate (Mary-Hex 2%) 1 applic DAILY@2000 TOPIC 08/02/18 20:00 09/01/18 19:59 Dextrose (Dextrose 50%) 25 ml STAT PRN IV Hypoglycemia 07/31/18 05:15 08/30/18 05:14 Dextrose (Dextrose 50%) 50 ml STAT PRN IV Hypoglycemia 07/31/18 05:15 08/30/18 05:14 Docusate Sodium (Colace) 100 mg TWICE A DAY ORAL 08/03/18 09:00 09/02/18 08:59 08/03/18 08:43 Heparin Sodium (Porcine) (Heparin 5000 units/ml) 5,000 units TID SUBQ 08/02/18 09:00 08/30/18 08:59 Iron Sucrose 100 mg/Sodium Chloride 60 ml @ 240 mls/hr QHS IV 08/01/18 21:00 08/05/18 21:14 08/01/18 20:52 Metoprolol Tartrate (Lopressor) 25 mg EVERY 12 HOURS ORAL 07/31/18 21:00 08/30/18 20:59 08/03/18 08:44 Ondansetron HCl (Zofran) 4 mg Q6H PRN IVP Nausea & Vomiting 07/31/18 05:15 08/30/18 05:14 07/31/18 23:24 Polyethylene Glycol (Miralax) 17 gm DAILY PRN ORAL Constipation 08/03/18 08:15 09/02/18 08:14 Assessment/Plan Problem List: (1) Anemia Assessment & Plan: Patient seen, chart reviewed, patient examined. Labs noted Initially seen and evaluated on 08/02. monitored given stable. fortunately today H/H stable and no longer trending down. Peripheral line is very difficult and unsuccessful on multiple attempts next option during weekend is central line but would reserve for urgent need. fortunately currently stable and can continue to manage with oral medications will plan for PICC line placement by radiology tomorrow if needed. will be available for central line until then if necessary. okay without line for now thank you for allowing me to participate in patients care. ICD Codes: D64.9 - Anemia, unspecified SNOMED: [id number] Status: stable Ever Guillen Aug 03, 2018 11:46
[2018-08-03 12:00] VITALS: BP 92/68
--- NOTE | 2018-08-03 13:30 | General Progress Note ---
Assessment/Plan Assessment/Plan Assessment/Plan # Severe anemia of iron deficiency - potentially menstrual related, reviewed pelvic us results --> Final results are pending for B12/folate, retic, FOBT reviewed and are negative --> iron panel shows anemia of iron deficiency, maanage with iv iron here and po as outpatient --> have started iv iron x 5 days total --> CT c/a/p to r/o malignancy has been ordered may need to go to [facility] --> gi eval as needed --> seen by pulm team # Atypical chest pain - potentially related to anemia, morbid obesity, r/o ACS given elevated troponin --> cardiology consulted, recs appreciated --> Trend trop/EKG, check lipid panel, A1C, TSH --> ASA 81mg daily # Shortness of breath - elevated d-dimer, r/o DVT/PE --> Pulmonology consulted --> Imaging as per pulm # Morbid obesity --> [employer] on weight loss # Homelessness --> SW consult as pt living in car w/ sister Greatly appreciate consult, have reviewed labs Subjective Constitutional: Denies: no symptoms, chills, diaphoresis, fever, malaise, weakness, other HEENT: Denies: no symptoms, eye pain, blurred vision, tearing, double vision, ear pain, ear discharge, nose pain, nose congestion, throat pain, throat swelling, mouth pain, mouth swelling, other Cardiovascular: Denies: no symptoms, chest pain, edema, irregular heart rate, lightheadedness, palpitations, syncope, other Respiratory: Denies: no symptoms, cough, orthopnea, shortness of breath, SOB with excertion, SOB at rest, sputum, stridor, wheezing, other Gastrointestinal/Abdominal: Denies: no symptoms, abdomen distended, abdominal pain, black stools, tarry stools, blood in stool, constipated, diarrhea, difficulty swallowing, nausea, poor appetite, poor fluid intake, rectal bleeding , vomiting, other Genitourinary: Denies: no symptoms, burning, discharge, frequency, flank pain, hematuria, incontinence, pain, urgency, other Neurologic/Psychiatric: Denies: no symptoms, anxiety, depressed, emotional problems, headache, numbness, paresthesia, pre-existing deficit, seizure, tingling, tremors, weakness, other Endocrine: Denies: no symptoms, excessive sweating, flushing, intolerance to cold, intolerance to heat, increased hunger, increased thirst, increased urine, unexplained weight gain, unexplained weight loss, other Hematologic/Lymphatic: Denies: no symptoms, anemia, easy bleeding, easy bruising, other Allergies: Coded Allergies: No Known Allergies (Unverified , 07/30/18) Subjective no pain, anemia panel reviewed, on iv iron. no fevers or chills Objective Last 24 Hour Vital Signs Date Time Temp Pulse Resp B/P (MAP) Pulse Ox O2 Delivery O2 Flow Rate FiO2 08/03/18 09:00 Venturi Mask 10.0 08/03/18 08:44 100 97/66 08/03/18 08:12 106 18 95 Venturi Mask 8.0 40 08/03/18 08:04 102 18 92 Venturi Mask 8.0 40 08/03/18 08:04 92 Venturi Mask 8.0 40 08/03/18 08:04 Venturi Mask 8.0 40 08/03/18 08:00 102 08/03/18 08:00 98.0 100 20 97/66 (76) 92 98.0 08/03/18 04:00 102 08/03/18 03:54 97.9 60 20 118/71 (87) 99 97.9 08/03/18 01:45 95 20 97 Venturi Mask 8.0 40 08/03/18 01:35 95 20 97 Venturi Mask 8.0 40 08/03/18 00:00 98 08/03/18 00:00 98.1 97 20 139/85 (103) 97 98.1 08/02/18 21:00 Venturi Mask 10.0 08/02/18 20:41 104 118/72 08/02/18 20:00 103 08/02/18 20:00 97.3 104 20 118/72 (87) 94 97.3 08/02/18 19:42 102 20 97 Venturi Mask 8.0 40 08/02/18 19:32 95 Venturi Mask 8.0 40 08/02/18 19:32 105 20 95 Venturi Mask 8.0 40 08/02/18 19:32 Venturi Mask 8.0 40 08/02/18 16:00 98.1 100 20 104/65 (78) 94 98.1 08/02/18 16:00 98 08/02/18 13:42 99 20 98 Venturi Mask 8.0 40 08/02/18 13:36 98 20 97 Venturi Mask 8.0 40 Intake and Output 08/02/18 08/03/18 19:00 07:00 Intake Total 360 ml 120 ml Balance 360 ml 120 ml Intake Oral 360 ml 120 ml # Voids 2 Laboratory Tests 08/02/18 14:38: White Blood Count 10.1, Red Blood Count 4.92, Hemoglobin 7.4L, Hematocrit 27.1L , Mean Corpuscular Volume 55L, Mean Corpuscular Hemoglobin 15.1L, Mean Corpuscular Hemoglobin Concent 27.4L, Red Cell Distribution Width 15.5H, Platelet Count 343, Mean Platelet Volume 8.3, Neutrophils (%) (Auto) 54.5, Lymphocytes (%) (Auto) 35.3, Monocytes (%) (Auto) 8.6, Eosinophils (%) (Auto) 0.6, Basophils (%) (Auto) 1.0, Sodium Level 136, Potassium Level 4.4, Chloride Level 103, Carbon Dioxide Level 23, Anion Gap 10, Blood Urea Nitrogen 18, Creatinine 0.9, Estimat Glomerular Filtration Rate > 60, Glucose Level 114H, Calcium Level 8.4L, Magnesium Level 2.1 08/03/18 10:15: White Blood Count 10.1, Red Blood Count 5.18, Hemoglobin 7.9L, Hematocrit 28.4L , Mean Corpuscular Volume 55L, Mean Corpuscular Hemoglobin 15.2L, Mean Corpuscular Hemoglobin Concent 27.8L, Red Cell Distribution Width 15.4H, Platelet Count 344, Mean Platelet Volume 6.2L, Neutrophils (%) (Auto) , Lymphocytes (%) (Auto) , Monocytes (%) (Auto) , Eosinophils (%) (Auto) , Basophils (%) (Auto) , Sodium Level 136, Potassium Level 4.0, Chloride Level 103 , Carbon Dioxide Level 26, Anion Gap 7, Blood Urea Nitrogen 14, Creatinine 0.9, Estimat Glomerular Filtration Rate > 60, Glucose Level 120H, Calcium Level 8.3L , Differential Total Cells Counted 100, Neutrophils % (Manual) 57, Lymphocytes % (Manual) 37, Monocytes % (Manual) 6, Eosinophils % (Manual) 0, Basophils % ( Manual) 0, Band Neutrophils 0, Nucleated Red Blood Cells 2, Platelet Estimate Adequate, Platelet Morphology Normal, Polychromasia 2+, Hypochromasia 3+, Anisocytosis 1+, Microcytosis 2+ Height (Feet): 5 Height (Inches): 2.00 Weight (Pounds): 320 General Appearance: alert EENT: TMs normal Neck: normal inspection Cardiovascular: normal rate Respiratory/Chest: no respiratory distress Abdomen: no mass Extremities: non-tender Edema: 1+ Leg (L), 1+ Leg (R) Edema: mild edema Skin: warm/dry Castillo Berry MD Aug 03, 2018 13:30
--- NOTE | 2018-08-03 14:07 | Cardiology Report ---
APPROVED REPORT EKG Measurement Heart [id number] Sinus tachycardia Rightward axis Nonspecific T wave abnormality Abnormal ECG
[2018-08-03 16:00] VITALS: BP 121/56
[2018-08-03 20:00] VITALS: BP 123/60
[2018-08-03] MEDS: Dyna-Hex 2% Top Sol 2oz TOPIC SCH (20:00)
--- NOTE | 2018-08-03 20:26 | Diagnostic Imaging Report ---
APPROVED REPORT CPT Code: 38591 Present Symptoms Shortness of breath BILATERAL: Imaging reveals a patent deep venous system bilaterally. There is no evidence of thrombus within the common femoral, and popliteal segments. The greater saphenous veins are also within normal limits. Doppler indicates normal spontaneous flow within these segments. The thigh and calf area not well visualized. Exam is technically limited due to body habitus.
[2018-08-03] MEDS: Iron Sucrose 100 MG in NS 55 ML IV SCH (21:00)
[2018-08-04] VITALS: BP 130/90
[2018-08-04] MEDS: Albuterol/Ipratropium 3ml neb HHN SCH ×4 (01:00→19:57)
[2018-08-04 04:00] VITALS: BP 100/60
[2018-08-04 08:00] VITALS: BP 125/67
[2018-08-04] MEDS ORDERED: Lidocaine 1% Plain 30 ml INJ PRN (08:30)
[2018-08-04] MEDS ORDERED: Heparin 2000 units/Ns 1000ml INJ PRN (08:30)
[2018-08-04] MEDS: Docusate 100mg cap ORAL SCH ×2 (08:41→17:42)
[2018-08-04] MEDS: Aspirin Baby 81mg ORAL SCH (08:42)
[2018-08-04] MEDS: Metoprolol 25mg tab ORAL SCH ×2 (08:42→20:33)
[2018-08-04] MEDS: Heparin 5000 units/ml inj SUBQ SCH ×3 (08:44→17:43)
--- NOTE | 2018-08-04 08:59 | General Progress Note ---
Assessment/Plan Assessment/Plan # Severe anemia of iron deficiency - potentially menstrual related, reviewed pelvic us results --> Final results are pending for B12/folate, retic, FOBT reviewed and are negative --> iron panel shows anemia of iron deficiency, maanage with iv iron here and po as outpatient --> have started iv iron x 5 days total --> CT c/a/p to r/o malignancy has been ordered may need to go to [facility] --> gi eval as needed, appreciate their recs --> seen by pulm team # Atypical chest pain - potentially related to anemia, morbid obesity, r/o ACS given elevated troponin --> cardiology consulted, recs appreciated --> Trend trop/EKG, check lipid panel, A1C, TSH as per cards --> ASA 81mg daily # Shortness of breath - elevated d-dimer, r/o DVT/PE --> Pulmonology consulted --> Imaging as per pulm # Morbid obesity --> [employer] on weight loss # Homelessness --> SW consult as pt living in car w/ sister Greatly appreciate consult, have reviewed labs Subjective Constitutional: Reports: no symptoms HEENT: Reports: no symptoms Cardiovascular: Reports: no symptoms Respiratory: Reports: no symptoms Gastrointestinal/Abdominal: Reports: no symptoms Genitourinary: Reports: no symptoms Neurologic/Psychiatric: Reports: no symptoms Endocrine: Reports: no symptoms Hematologic/Lymphatic: Reports: anemia Allergies: Coded Allergies: No Known Allergies (Unverified , 07/30/18) Subjective asleep, no events, unlabored breathing, on iv iron. no fevers or chills Objective Last 24 Hour Vital Signs Date Time Temp Pulse Resp B/P (MAP) Pulse Ox O2 Delivery O2 Flow Rate FiO2 08/04/18 08:42 107 125/67 08/04/18 08:35 107 20 97 Venturi Mask 8.0 40 08/04/18 08:24 Venturi Mask 8.0 40 08/04/18 08:24 95 Venturi Mask 8.0 40 08/04/18 08:21 102 20 95 Venturi Mask 8.0 40 08/04/18 08:00 97.8 100 20 125/67 (86) 97 97.8 08/04/18 04:00 97.2 99 22 100/60 (73) 100 97.2 08/04/18 04:00 99 08/04/18 01:41 Venturi Mask 8.0 40 08/04/18 01:41 Venturi Mask 8.0 40 08/04/18 00:00 94 08/04/18 00:00 97.0 96 20 130/90 (103) 100 97.0 08/03/18 21:00 Venturi Mask 10.0 08/03/18 20:49 107 123/86 08/03/18 20:00 107 08/03/18 20:00 97.9 107 24 123/60 (81) 93 97.9 08/03/18 19:32 109 20 95 Venturi Mask 8.0 40 08/03/18 19:30 93 Venturi Mask 8.0 40 08/03/18 19:30 Venturi Mask 8.0 40 08/03/18 19:20 107 20 93 Venturi Mask 8.0 40 08/03/18 16:00 97.5 107 20 121/56 (77) 90 97.5 08/03/18 16:00 98 08/03/18 13:44 103 20 94 Venturi Mask 8.0 40 08/03/18 13:34 101 20 92 Nasal Cannula 3.0 32 08/03/18 12:00 98 08/03/18 12:00 97.7 103 20 92/68 (76) 92 97.7 08/03/18 09:00 Venturi Mask 10.0 Intake and Output 08/03/18 08/04/18 19:00 07:00 Intake Total 720 ml 120 ml Balance 720 ml 120 ml Intake Oral 720 ml 120 ml # Voids 3 1 Laboratory Tests 08/03/18 10:15: White Blood Count 10.1, Red Blood Count 5.18, Hemoglobin 7.9L, Hematocrit 28.4L , Mean Corpuscular Volume 55L, Mean Corpuscular Hemoglobin 15.2L, Mean Corpuscular Hemoglobin Concent 27.8L, Red Cell Distribution Width 15.4H, Platelet Count 344, Mean Platelet Volume 6.2L, Neutrophils (%) (Auto) , Lymphocytes (%) (Auto) , Monocytes (%) (Auto) , Eosinophils (%) (Auto) , Basophils (%) (Auto) , Differential Total Cells Counted 100, Neutrophils % ( Manual) 57, Lymphocytes % (Manual) 37, Monocytes % (Manual) 6, Eosinophils % ( Manual) 0, Basophils % (Manual) 0, Band Neutrophils 0, Nucleated Red Blood Cells 2, Platelet Estimate Adequate, Platelet Morphology Normal, Polychromasia 2 +, Hypochromasia 3+, Anisocytosis 1+, Microcytosis 2+, Sodium Level 136, Potassium Level 4.0, Chloride Level 103, Carbon Dioxide Level 26, Anion Gap 7, Blood Urea Nitrogen 14, Creatinine 0.9, Estimat Glomerular Filtration Rate > 60 , Glucose Level 120H, Calcium Level 8.3L Height (Feet): 5 Height (Inches): 2.00 Weight (Pounds): 320 General Appearance: no apparent distress, confused EENT: pharynx normal Neck: supple Cardiovascular: regular rhythm Respiratory/Chest: normal breath sounds Abdomen: normal bowel sounds Extremities: non-tender Edema: 1+ Leg (L), 1+ Leg (R) Edema: mild edema Neurologic: alert Skin: warm/dry Castillo Berry MD Aug 04, 2018 08:59
--- NOTE | 2018-08-04 10:53 | GI Progress Note ---
Assessment/Plan Problems: (1) Menses regular with excessive bleeding ICD Codes: N92.0 - Excessive and frequent menstruation with regular cycle SNOMED: 481579009 (2) Nausea & vomiting ICD Codes: R11.2 - Nausea with vomiting, unspecified SNOMED: 23548960 (3) Electrolyte disturbance ICD Codes: E87.8 - Other disorders of electrolyte and fluid balance, not elsewhere classified SNOMED: 616834085 (4) Cannabis abuse ICD Codes: F12.10 - Cannabis abuse, uncomplicated SNOMED: 50664055 (5) Anemia ICD Codes: D64.9 - Anemia, unspecified SNOMED: 178879046 (6) Vaginal discharge ICD Codes: N89.8 - Other specified noninflammatory disorders of vagina SNOMED: 726237720 Status: unchanged Status Narrative Discussed with Dr. Mchugh. Assessment/Plan Assessment - Iron deficiency anemia, likely menstrual etiology - Morbid obesity - Edema - Marijuana use Recommendations - IV Fe - check stool OB once menses over - zofran prn - prn transfusions - fu labs The patient was seen and examined at bedside and all new and available data was reviewed in the patients chart. I agree with the above findings, impression and plan. (Patient seen earlier today. Signature stamp does not reflect patient encounter time.). - Berny Mchugh MD Subjective Subjective SOB nausea had episode of emesis this morning Objective Last 24 Hour Vital Signs Date Time Temp Pulse Resp B/P (MAP) Pulse Ox O2 Delivery O2 Flow Rate FiO2 08/04/18 08:42 107 125/67 08/04/18 08:35 107 20 97 Venturi Mask 8.0 40 08/04/18 08:24 Venturi Mask 8.0 40 08/04/18 08:24 95 Venturi Mask 8.0 40 08/04/18 08:21 102 20 95 Venturi Mask 8.0 40 08/04/18 08:00 97.8 100 20 125/67 (86) 97 97.8 08/04/18 08:00 92 08/04/18 04:00 97.2 99 22 100/60 (73) 100 97.2 08/04/18 04:00 99 08/04/18 01:41 Venturi Mask 8.0 40 08/04/18 01:41 Venturi Mask 8.0 40 08/04/18 00:00 94 08/04/18 00:00 97.0 96 20 130/90 (103) 100 97.0 08/03/18 21:00 Venturi Mask 10.0 08/03/18 20:49 107 123/86 08/03/18 20:00 107 08/03/18 20:00 97.9 107 24 123/60 (81) 93 97.9 08/03/18 19:32 109 20 95 Venturi Mask 8.0 40 08/03/18 19:30 93 Venturi Mask 8.0 40 08/03/18 19:30 Venturi Mask 8.0 40 08/03/18 19:20 107 20 93 Venturi Mask 8.0 40 08/03/18 16:00 97.5 107 20 121/56 (77) 90 97.5 08/03/18 16:00 98 08/03/18 13:44 103 20 94 Venturi Mask 8.0 40 08/03/18 13:34 101 20 92 Nasal Cannula 3.0 32 08/03/18 12:00 98 08/03/18 12:00 97.7 103 20 92/68 (76) 92 97.7 Intake and Output 08/03/18 08/04/18 19:00 07:00 Intake Total 720 ml 120 ml Balance 720 ml 120 ml Intake Oral 720 ml 120 ml # Voids 3 1 Height (Feet): 5 Height (Inches): 2.00 Weight (Pounds): 320 General Appearance: WD/WN, no apparent distress, alert, morbidly obese Cardiovascular: normal rate Respiratory/Chest: normal breath sounds, no respiratory distress Abdominal Exam: normal bowel sounds, non tender, soft Extremities: normal range of motion, non-tender Jacek Joiner ICING MAKER Aug 04, 2018 10:53
--- NOTE | 2018-08-04 11:05 | Pre-Procedure Note/Attestation ---
Pre-Procedure Note/Attestation Complete Prior to Procedure Planned Procedure: not applicable Procedure Narrative: PICC line placement Indications for Procedure Pre-Operative Diagnosis: need for IV access Attestation I attest that I discussed the nature of the procedure; its benefits; risks and complications; and alternatives (and the risks and benefits of such alternatives ), prior to the procedure, with the patient (or the patient's legal technical support representative). I attest that I re-evaluated the patient just prior to the surgery and that there has been no change in the patient's H&P, except as documented below: Zain Enriquez M.D. Aug 04, 2018 11:05
--- NOTE | 2018-08-04 11:31 | Diagnostic Imaging Report ---
PICC line Indications: Needs IV access Technique: Ultrasound confirms patent compressible left cephalic vein. Total sterile technique, including sterile probe cover and sterile gel, hat, mask,, sterile gown, large sterile drape, and preparation with 2% chlorhexidine utilized. Local anesthesia with 1% lidocaine. Under real-time ultrasound guidance, puncture left cephalic vein using 21-gauge needle, documented and archived, passage 0.018 guidewire under direct fluoroscopy (wire was passed into the inferior vena cava acting a second confirmation of placement within the venous system), which was used to determine appropriate catheter length, exchange for 5 Syrian peel-away sheath. 5 Syrian dual-lumen power PICC cut to 45 cm. It was inserted through the peel-away sheath. Peel-away sheath and guidewire removed. Catheter fixed to the skin. Both catheter ports aspirated and flushed. Patient tolerated procedure well, without immediate complication. Digital radiograph documents satisfactory catheter tip position, at the cavoatrial junction. Total fluoroscopy time 2.7 minutes. Total dose area product 179 dGycm2 Impression: Successful placement of 5 Syrian double-lumen PICC under sonographic and fluoroscopic guidance, as described above.
[2018-08-04 12:00] VITALS: BP 120/68
--- NOTE | 2018-08-04 12:44 | Consultation ---
Consult Note Consult Note GYNECOLOGY HISTORY & PHYSICAL CC: Vaginal bleeding, anemia, possible ruptured cyst on US HPI: Ms. Fournier is a 27yo with morbid obesity who was initially admitted for management of CP, SOB, and anemia. She was noted to have vaginal bleeding during her stay, heavy at times, which has been an issue for the patient for the past 10 years per her report. She states that her LMP was 07/06-07/10, and that during her hospital stay she began having intermittent heavy bleeding with passage of clots. She reports intermittent pelvic pain, that has been getting worse over the years - the pain is worst during her cycle, particularly when she is passing clots, and is described as rectal pressure. She was noted to have some free fluid on US which was concerning for a ruptured cyst, but she denies any severe or acute onset pelvic pain. She notes some leg pain on the left (stating that she "threw out" her calf). No other complaints. PMH: Denies any medical issues, no hx of HTN, DM, asthma, or thyroid dz. She is morbidly obese with a BMI >70. PSH: Denies Meds: None Allergies: NKDA OBHx: G0 GYNHx: Last HVAC DESIGN MECHANICAL ENGINEER visit in 2007, last Pap in 2007. No hx abnl Pap. +Hx of Chlamydia. Took OCPs in 2007 and was transitioned to Depo in 2008. Last used it in 2008. SocHx: Denies tobacco, reports EtOH once every 3-4 months, reportedly smokes marijuana once per month, but per chart review is a more frequent user of edible cannabinoids. States she is staying with a friend, but per chart review she is living in a car with her sister. FamHx: Mother of clot in heart ([place]), Maternal grandfather of blood cancer. No other history known or reported. Vitals: BP 120/68, HR 100, T 97.2, RR 20, O2 97% on Venturi mask at 10L Exam: Gen: Obese, NAD, able to speak in full sentences but with some effort. Does not want to move in bed. HEENT: OP clear, MMM Neck: No obvious thyromegaly but large amount of subQ decreased the ability to note thyroid enlargement CV: Tachycardic to low 100s Pulm: Mild increased work of breathing Abd: Soft, obese, non-tender, no rebound or guarding Pelvic: Internal exam deferred. Scant blood on pad. Ext: +Calf TTP on LEFT Neuro: Intact grossly, but patient did not ambulate during our encounter Labs: Test 08/02/18 14:38 08/03/18 10:15 White Blood Count 10.1 K/UL (4.8-10.8) 10.1 K/UL (4.8-10.8) Red Blood Count 4.92 M/UL (4.20-5.40) 5.18 M/UL (4.20-5.40) Hemoglobin 7.4 G/DL (12.0-16.0) 7.9 G/DL (12.0-16.0) Hematocrit 27.1 % (37.0-47.0) 28.4 % (37.0-47.0) Mean Corpuscular Volume 55 FL (80-99) 55 FL (80-99) Mean Corpuscular Hemoglobin 15.1 PG (27.0-31.0) 15.2 PG (27.0-31.0) Mean Corpuscular Hemoglobin Concent 27.4 G/DL (32.0-36.0) 27.8 G/DL (32.0-36.0) Red Cell Distribution Width 15.5 % (11.6-14.8) 15.4 % (11.6-14.8) Platelet Count 343 K/UL (150-450) 344 K/UL (150-450) Mean Platelet Volume 8.3 FL (6.5-10.1) 6.2 FL (6.5-10.1) Neutrophils (%) (Auto) 54.5 % (45.0-75.0) % (45.0-75.0) Lymphocytes (%) (Auto) 35.3 % (20.0-45.0) % (20.0-45.0) Monocytes (%) (Auto) 8.6 % (1.0-10.0) % (1.0-10.0) Eosinophils (%) (Auto) 0.6 % (0.0-3.0) % (0.0-3.0) Basophils (%) (Auto) 1.0 % (0.0-2.0) % (0.0-2.0) Sodium Level 136 MMOL/L (136-145) 136 MMOL/L (136-145) Potassium Level 4.4 MMOL/L (3.5-5.1) 4.0 MMOL/L (3.5-5.1) Chloride Level 103 MMOL/L (98-107) 103 MMOL/L (98-107) Carbon Dioxide Level 23 MMOL/L (21-32) 26 MMOL/L (21-32) Anion Gap 10 mmol/L (5-15) 7 mmol/L (5-15) Blood Urea Nitrogen 18 mg/dL (7-18) 14 mg/dL (7-18) Creatinine 0.9 MG/DL (0.55-1.30) 0.9 MG/DL (0.55-1.30) Estimat Glomerular Filtration Rate > 60 mL/min (>60) > 60 mL/min (>60) Glucose Level 114 MG/DL (74-106) 120 MG/DL (74-106) Calcium Level 8.4 MG/DL (8.5-10.1) 8.3 MG/DL (8.5-10.1) Magnesium Level 2.1 MG/DL (1.8-2.4) Differential Total Cells Counted 100 Neutrophils % (Manual) 57 % (45-75) Lymphocytes % (Manual) 37 % (20-45) Monocytes % (Manual) 6 % (1-10) Eosinophils % (Manual) 0 % (0-3) Basophils % (Manual) 0 % (0-2) Band Neutrophils 0 % (0-8) Nucleated Red Blood Cells 2 /100 WBC Platelet Estimate Adequate Platelet Morphology Normal Polychromasia 2+ Hypochromasia 3+ Anisocytosis 1+ Microcytosis 2+ Imaging: The uterus measures 6 x 5 x 3 cm. Endometrium is about 6 mm. The uterus appears normal in size contour and echogenicity. There is a moderate amount of free fluid present. The fluid is notable for some complexity with debris which may be blood. In the context of a negative test this is probably on the basis of a ruptured ovarian cyst. There is no adnexal mass identified. Left ovary is not visualized. The right ovary shows doppler blood flow and appears normal measures 2.2 x 2.4 x 1.6 cm. IMPRESSION: - Complex free fluid within the pelvis presumably blood or hemoperitoneum. In the context of a negative test the finding is probably on the basis of a ruptured ovarian cyst which is not visualized. - Nonvisualization of the left ovary. Normal appearance of the right ovary. - Unremarkable uterus Assessment/Plan 27yo morbidly obese G0 (BMI >70), admitted with CP, SOB, and anemia, noted to have intermittent heavy vaginal bleeding and ultrasound findings concerning for a ruptured ovarian cyst. - Minimal bleeding on exam today, no indication for emergent surgical management. H/H stable. - Endometrial lining on US somewhat thickened, but ET measurements are unreliable when trying to establish risk of malignancy in pre-menopausal women. - Bleeding is likely anovulatory, but cannot rule out hyperplasia given her risk factors (nulliparity, morbid obesity). - Given her longstanding history of abnormal uterine bleeding, I recommend endometrial sampling; however, not a surgical candidate at this time and a biopsy can safely be done as an outpatient. - Consider Provera 10mg qday for control of bleeding, however once patient stops Provera her bleeding will resume. - For long-term control of her bleeding, I recommend a Mirena IUD. Patient needs to follow up with [employer] Storage Attendant as an outpatient. - Patient did not present with typical clinical picture of ruptured ovarian cyst (no acute onset pelvic pain) and no abdominal pain or rebound on exam, however anemia and ultrasound findings are concerning for possible ruptured cyst - Expectant management is appropriate, no surgical management is indicated. Consider blood transfusion for correction of anemia. - Patient is cleared by HVAC DESIGN MECHANICAL ENGINEER once she is stable for discharge from the primary team's standpoint. She will need HVAC DESIGN MECHANICAL ENGINEER outpatient follow up. Signed: Mirella Barber M.D. Aug 04, 2018 12:44
[2018-08-04 13:27] LABS: HEMATOCRIT 27.4 % (37.0-47.0); HEMOGLOBIN 7.4 G/DL (12.0-16.0); MEAN CORPUSCULAR VOLUME 55 FL (80-99); PLATELET COUNT 338 K/UL (150-450); RED BLOOD COUNT 4.98 M/UL (4.20-5.40); RED CELL DISTRIBUTION WIDTH 15.6 % (11.6-14.8); WHITE BLOOD COUNT 11.6 K/UL (4.8-10.8)
[2018-08-04 13:40] LABS: ANION GAP 6 mmol/L (5-15); BLOOD UREA NITROGEN 17 mg/dL (7-18); CALCIUM 8.4 MG/DL (8.5-10.1); CARBON DIOXIDE 26 MMOL/L (21-32); CHLORIDE 104 MMOL/L (98-107); CREATININE 0.9 MG/DL (0.55-1.30); POTASSIUM 4.5 MMOL/L (3.5-5.1); SODIUM 136 MMOL/L (136-145)
--- NOTE | 2018-08-04 15:29 | Cardiac Electrophysiology PN ---
Assessment/Plan Assessment/Plan 1. Troponin leak. The level is low and flat 0.2, 0.1,0.08. Likely due to demand ischemia in view of her severe anemia. Echocardiogram showed normal left ventricular systolic function. ECG nonspecific T wave abnormality She is only 27 years old. Urine toxicology screen positive for marijuana. Her D-dimer is evaluated at 3.14, but lower extremity duplex is negative for DVT. CT angio couldn't be done as [facility] ER scanner has a weight limit of 675 lbs and a circumference max of 72 in. She is [address] [facility] pulmonary. ? Stress test after anemia is corrected and PE excluded. 2. Severe anemia Hb [address] chest abdomen and pelvis pending. [employer] eval in progress 3. Morbid obesity DW RN Subjective Subjective Alert in NAD. Still awaiting CT Chest abdomen pelvis.Wouldn't fit at [facility]. Still has vaginal bleeding Objective Last 24 Hour Vital Signs Date Time Temp Pulse Resp B/P (MAP) Pulse Ox O2 Delivery O2 Flow Rate FiO2 08/04/18 13:14 Nasal Cannula 3.0 32 08/04/18 13:14 Nasal Cannula 3.0 32 08/04/18 12:00 96 08/04/18 12:00 97.2 100 20 120/68 (85) 97 97.2 08/04/18 09:00 Venturi Mask 10.0 08/04/18 08:42 107 125/67 08/04/18 08:35 107 20 97 Venturi Mask 8.0 40 08/04/18 08:24 Venturi Mask 8.0 40 08/04/18 08:24 95 Venturi Mask 8.0 40 08/04/18 08:21 102 20 95 Venturi Mask 8.0 40 08/04/18 08:00 97.8 100 20 125/67 (86) 97 97.8 08/04/18 08:00 92 08/04/18 04:00 97.2 99 22 100/60 (73) 100 97.2 08/04/18 04:00 99 08/04/18 01:41 Venturi Mask 8.0 40 08/04/18 01:41 Venturi Mask 8.0 40 08/04/18 00:00 94 08/04/18 00:00 97.0 96 20 130/90 (103) 100 97.0 08/03/18 21:00 Venturi Mask 10.0 08/03/18 20:49 107 123/86 08/03/18 20:00 107 08/03/18 20:00 97.9 107 24 123/60 (81) 93 97.9 08/03/18 19:32 109 20 95 Venturi Mask 8.0 40 08/03/18 19:30 93 Venturi Mask 8.0 40 08/03/18 19:30 Venturi Mask 8.0 40 08/03/18 19:20 107 20 93 Venturi Mask 8.0 40 08/03/18 16:00 97.5 107 20 121/56 (77) 90 97.5 08/03/18 16:00 98 Intake and Output 08/03/18 08/04/18 19:00 07:00 Intake Total 720 ml 120 ml Balance 720 ml 120 ml Intake Oral 720 ml 120 ml # Voids 3 1 Laboratory Tests Test 08/04/18 13:15 White Blood Count 11.6 K/UL (4.8-10.8) H Red Blood Count 4.98 M/UL (4.20-5.40) Hemoglobin 7.4 G/DL (12.0-16.0) L Hematocrit 27.4 % (37.0-47.0) L Mean Corpuscular Volume 55 FL (80-99) L Mean Corpuscular Hemoglobin 14.9 PG (27.0-31.0) L Mean Corpuscular Hemoglobin Concent 27.1 G/DL (32.0-36.0) L Red Cell Distribution Width 15.6 % (11.6-14.8) H Platelet Count 338 K/UL (150-450) Mean Platelet Volume 6.6 FL (6.5-10.1) Neutrophils (%) (Auto) % (45.0-75.0) Lymphocytes (%) (Auto) % (20.0-45.0) Monocytes (%) (Auto) % (1.0-10.0) Eosinophils (%) (Auto) % (0.0-3.0) Basophils (%) (Auto) % (0.0-2.0) Differential Total Cells Counted 100 Neutrophils % (Manual) 71 % (45-75) Lymphocytes % (Manual) 25 % (20-45) Monocytes % (Manual) 3 % (1-10) Eosinophils % (Manual) 1 % (0-3) Basophils % (Manual) 0 % (0-2) Band Neutrophils 0 % (0-8) Platelet Estimate Adequate Platelet Morphology See comment Giant Platelets Rare Polychromasia 2+ Hypochromasia 3+ Microcytosis 3+ Tear Drop Cells Occasional Sodium Level 136 MMOL/L (136-145) Potassium Level 4.5 MMOL/L (3.5-5.1) Chloride Level 104 MMOL/L (98-107) Carbon Dioxide Level 26 MMOL/L (21-32) Anion Gap 6 mmol/L (5-15) Blood Urea Nitrogen 17 mg/dL (7-18) Creatinine 0.9 MG/DL (0.55-1.30) Estimat Glomerular Filtration Rate > 60 mL/min (>60) Glucose Level 126 MG/DL (74-106) H Calcium Level 8.4 MG/DL (8.5-10.1) L Objective HEAD AND NECK: No JVD LUNGS: Clear. CARDIOVASCULAR: Regular S1 and S2 with no gallop or murmur. ABDOMEN: Soft and morbidly obese. EXTREMITIES: No pitting edema. Bunny Arnett MD Aug 04, 2018 15:29
[2018-08-04 16:00] VITALS: BP 124/84
[2018-08-04] MEDS: medroxyPROGESTERone 10mg tab ORAL SCH (16:14)
[2018-08-04 20:00] VITALS: BP 111/63
[2018-08-04] MEDS: Dyna-Hex 2% Top Sol 2oz TOPIC SCH (20:32)
[2018-08-04] MEDS: Iron Sucrose 100 MG in NS 55 ML IV SCH (20:33)
--- NOTE | 2018-08-04 23:54 | General Progress Note ---
Assessment/Plan Status: stable Assessment/Plan # Atypical chest pain with elevated troponin likely NSTEMI type 2 demand ischemia in setting of anemia - Cardiology consulted - Tele - Check TTE--per Dr. Hope BOYD wnl, awaiting final report - ASA 81mg daily # Shortness of breath - likely 2/2 severe anemia # Acute hypoxic respiratory failure - Pulmonology consulted - Unable to do CT 2/2 pt's weight - Check BLE venous duplex --> neg - Unlikely PE given RV ok on ECHO - Wean O2 as tolerated - Duonebs # Severe anemia 2/2 Fe def anemia likely from heavy vaginal bleeding - Heme/onc consulted - IV venofer started 08/01- - Transfuse 1U pRBC today - CT c/a/p unable to be done 2/2 pt's weights - Check pelvic U/S --> concern for ruptured ovarian cyst. Crossing Guard Dr. Baum consulted. Pt will need endometrial sampling as an outpt - Start provera 10mg daily - GI consulted # Morbid obesity - [employer] on weight loss Dispo: SW consult as pt living in car w/ sister. Likely d/c tomorrow if hgb responds appropriately DVT Prophylaxis: HSQ Code Status: Full Hospital Classification Declaration: Based on this initial evaluation, and depending on the patient's clinical course, I anticipate that this patient will require hospitalization for 2-3 days for chest pain, SOB, severe anemia, and close respiratory/hemodynamic monitoring. Disposition: Once the patient is stable to leave the hospital, I anticipate the patient will likely be discharged to the following environment: home I spent 40 minutes on this patient's case, and 28 minutes were dedicated to counseling and/or care coordination. Discussed with patient/family, nursing staff, SW/CM,cardiology, pulmonology regarding clinical status, treatment course , and disposition planning. D/w data analysis assistant re vaginal bleeding, anemia Time of note may not reflect time of encounter. Subjective Date patient seen: Aug 04, 2018 Time patient seen: 11:00 ROS Limited/Unobtainable: No Constitutional: Reports: no symptoms HEENT: Reports: no symptoms Cardiovascular: Reports: no symptoms Respiratory: Reports: shortness of breath Gastrointestinal/Abdominal: Reports: abdominal pain Genitourinary: Reports: no symptoms Neurologic/Psychiatric: Reports: no symptoms Endocrine: Reports: no symptoms Hematologic/Lymphatic: Reports: no symptoms Allergies: Coded Allergies: No Known Allergies (Unverified , 07/30/18) Subjective No acute o/n events Unable to do CT or V/Q scan given pt's weight. Awaiting transfer to facility that is able to accommodate PICC placed today given difficulty with IV access Hgb 7.4 92% on RA Pt cont to c/o shortness of breath, currently on NC mainly for comfort. Currently denies chest pain Objective Last 24 Hour Vital Signs Date Time Temp Pulse Resp B/P (MAP) Pulse Ox O2 Delivery O2 Flow Rate FiO2 08/04/18 21:00 Venturi Mask 10.0 Nasal Cannula 2.0 08/04/18 20:33 95 111/63 08/04/18 20:08 95 20 100 Nasal Cannula 1.0 24 08/04/18 20:01 Nasal Cannula 3.0 32 08/04/18 20:00 95 Nasal Cannula 3.0 32 08/04/18 20:00 98.0 97 20 111/63 (79) 96 98.0 08/04/18 20:00 97 08/04/18 19:59 95 20 95 Nasal Cannula 3.0 32 08/04/18 16:00 91 08/04/18 16:00 97.2 93 18 124/84 (97) 98 97.2 08/04/18 13:14 Nasal Cannula 3.0 32 08/04/18 13:14 Nasal Cannula 3.0 32 08/04/18 12:00 96 08/04/18 12:00 97.2 100 20 120/68 (85) 97 97.2 08/04/18 09:00 Venturi Mask 10.0 08/04/18 08:42 107 125/67 08/04/18 08:35 107 20 97 Venturi Mask 8.0 40 08/04/18 08:24 Venturi Mask 8.0 40 08/04/18 08:24 95 Venturi Mask 8.0 40 08/04/18 08:21 102 20 95 Venturi Mask 8.0 40 08/04/18 08:00 97.8 100 20 125/67 (86) 97 97.8 08/04/18 08:00 92 08/04/18 04:00 97.2 99 22 100/60 (73) 100 97.2 08/04/18 04:00 99 08/04/18 01:41 Venturi Mask 8.0 40 08/04/18 01:41 Venturi Mask 8.0 40 08/04/18 00:00 94 08/04/18 00:00 97.0 96 20 130/90 (103) 100 97.0 Intake and Output 08/03/18 08/04/18 19:00 07:00 Intake Total 720 ml 120 ml Balance 720 ml 120 ml Intake Oral 720 ml 120 ml # Voids 3 1 Laboratory Tests 08/04/18 13:15: White Blood Count 11.6H, Red Blood Count 4.98, Hemoglobin 7.4L, Hematocrit 27.4L , Mean Corpuscular Volume 55L, Mean Corpuscular Hemoglobin 14.9L, Mean Corpuscular Hemoglobin Concent 27.1L, Red Cell Distribution Width 15.6H, Platelet Count 338, Mean Platelet Volume 6.6, Neutrophils (%) (Auto) , Lymphocytes (%) (Auto) , Monocytes (%) (Auto) , Eosinophils (%) (Auto) , Basophils (%) (Auto) , Differential Total Cells Counted 100, Neutrophils % ( Manual) 71, Lymphocytes % (Manual) 25, Monocytes % (Manual) 3, Eosinophils % ( Manual) 1, Basophils % (Manual) 0, Band Neutrophils 0, Platelet Estimate Adequate, Platelet Morphology See comment, Giant Platelets Rare, Polychromasia 2 +, Hypochromasia 3+, Microcytosis 3+, Tear Drop Cells Occasional, Sodium Level 136, Potassium Level 4.5, Chloride Level 104, Carbon Dioxide Level 26, Anion Gap 6, Blood Urea Nitrogen 17, Creatinine 0.9, Estimat Glomerular Filtration Rate > 60, Glucose Level 126H, Calcium Level 8.4L Height (Feet): 5 Height (Inches): 2.00 Weight (Pounds): 320 Objective General: alert, cooperative, no distress, appears stated age, morbidly obese Head: normocephalic, without obvious abnormality, atraumatic Eyes: conjunctivae/corneas clear. PERRL, EOM's intact Throat: lips, mucosa, and tongue normal. MMM Neck: supple, symmetrical, trachea midline; difficult to visualize JVD Lungs: clear to auscultation bilaterally Heart: regular rate and rhythm, S1, S2 normal, no murmur, click, rub or gallop Abdomen: soft, non-tender, non-distended, bowel sounds normal; obese abd Extremities: extremities normal, atraumatic, no cyanosis, +BLE edema Pulses: 2+ and symmetric Skin: skin color, texture, turgor normal; no rashes or lesions Neurologic: grossly normal, no focal deficits Kwan Thakur M.D. Aug 04, 2018 23:54
[2018-08-05] VITALS: BP 125/76
[2018-08-05] MEDS: Albuterol/Ipratropium 3ml neb HHN SCH ×3 (01:00→13:39)
[2018-08-05 04:00] VITALS: BP 122/76
[2018-08-05 04:57] LABS: BASOPHILS % (AUTO) 0.6 % (0.0-2.0); EOSINOPHILS % (AUTO) 0.8 % (0.0-3.0); HEMATOCRIT 29.3 % (37.0-47.0); HEMOGLOBIN 8.3 G/DL (12.0-16.0); LYMPHOCYTES % (AUTO) 31.7 % (20.0-45.0); MEAN CORPUSCULAR VOLUME 57 FL (80-99); MONOCYTES % (AUTO) 6.3 % (1.0-10.0); NEUTROPHILS % (AUTO) 60.6 % (45.0-75.0); PLATELET COUNT 320 K/UL (150-450); RED BLOOD COUNT 5.11 M/UL (4.20-5.40); RED CELL DISTRIBUTION WIDTH 19.5 % (11.6-14.8); WHITE BLOOD COUNT 12.4 K/UL (4.8-10.8)
[2018-08-05 05:30] LABS: ANION GAP 7 mmol/L (5-15); BLOOD UREA NITROGEN 16 mg/dL (7-18); CALCIUM 8.2 MG/DL (8.5-10.1); CARBON DIOXIDE 27 MMOL/L (21-32); CHLORIDE 104 MMOL/L (98-107); POTASSIUM 4.1 MMOL/L (3.5-5.1); SODIUM 138 MMOL/L (136-145)
--- NOTE | 2018-08-05 06:42 | General Progress Note ---
Assessment/Plan Assessment/Plan # Severe anemia of iron deficiency - potentially menstrual related, reviewed pelvic us results --> Results for B12/folate, retic, FOBT reviewed and are negative --> iron panel shows anemia of iron deficiency, manage with iv iron here and po as outpatient --> have started iv iron x 5 days total --> CT c/a/p to r/o malignancy has been ordered may need to go [facility] --> provera started for heavy menstrual bleeding --> gi eval as needed, appreciate their recs --> seen by pulm team # Atypical chest pain - potentially related to anemia, morbid obesity, r/o ACS given elevated troponin --> cardiology consulted, recs appreciated --> trop leak management per cards --> ASA 81mg daily # Shortness of breath - elevated d-dimer, r/o DVT/PE --> Pulmonology consulted --> Imaging as per pulm # Morbid obesity --> [employer] on weight loss # Homelessness --> SW consult as pt living in car w/ sister Greatly appreciate consult, have reviewed labs Subjective Constitutional: Denies: no symptoms, chills, diaphoresis, fever, malaise, weakness, other HEENT: Denies: no symptoms, eye pain, blurred vision, tearing, double vision, ear pain, ear discharge, nose pain, nose congestion, throat pain, throat swelling, mouth pain, mouth swelling, other Cardiovascular: Denies: no symptoms, chest pain, edema, irregular heart rate, lightheadedness, palpitations, syncope, other Gastrointestinal/Abdominal: Denies: no symptoms, abdomen distended, abdominal pain, black stools, tarry stools, blood in stool, constipated, diarrhea, difficulty swallowing, nausea, poor appetite, poor fluid intake, rectal bleeding , vomiting, other Genitourinary: Denies: no symptoms, burning, discharge, frequency, flank pain, hematuria, incontinence, pain, urgency, other Neurologic/Psychiatric: Denies: no symptoms, anxiety, depressed, emotional problems, headache, numbness, paresthesia, pre-existing deficit, seizure, tingling, tremors, weakness, other Endocrine: Denies: no symptoms, excessive sweating, flushing, intolerance to cold, intolerance to heat, increased hunger, increased thirst, increased urine, unexplained weight gain, unexplained weight loss, other Hematologic/Lymphatic: Denies: no symptoms, anemia, easy bleeding, easy bruising, other Allergies: Coded Allergies: No Known Allergies (Unverified , 07/30/18) Subjective asleep, no events, unlabored breathing, on iv iron. no f/c noted Objective Last 24 Hour Vital Signs Date Time Temp Pulse Resp B/P (MAP) Pulse Ox O2 Delivery O2 Flow Rate FiO2 08/05/18 04:09 94 08/05/18 04:00 97.0 97 20 122/76 (91) 98 97.0 08/05/18 01:29 Nasal Cannula 1.0 24 08/05/18 01:29 Nasal Cannula 1.0 24 08/05/18 00:13 96 08/05/18 00:00 98.0 98 20 125/76 (92) 98 98.0 08/04/18 21:00 Venturi Mask 10.0 Nasal Cannula 2.0 08/04/18 20:33 95 111/63 08/04/18 20:08 95 20 100 Nasal Cannula 1.0 24 08/04/18 20:01 Nasal Cannula 3.0 32 08/04/18 20:00 95 Nasal Cannula 3.0 32 08/04/18 20:00 98.0 97 20 111/63 (79) 96 98.0 08/04/18 20:00 97 08/04/18 19:59 95 20 95 Nasal Cannula 3.0 32 08/04/18 16:00 91 08/04/18 16:00 97.2 93 18 124/84 (97) 98 97.2 08/04/18 13:14 Nasal Cannula 3.0 32 08/04/18 13:14 Nasal Cannula 3.0 32 08/04/18 12:00 96 08/04/18 12:00 97.2 100 20 120/68 (85) 97 97.2 08/04/18 09:00 Venturi Mask 10.0 08/04/18 08:42 107 125/67 08/04/18 08:35 107 20 97 Venturi Mask 8.0 40 08/04/18 08:24 Venturi Mask 8.0 40 08/04/18 08:24 95 Venturi Mask 8.0 40 08/04/18 08:21 102 20 95 Venturi Mask 8.0 40 08/04/18 08:00 97.8 100 20 125/67 (86) 97 97.8 08/04/18 08:00 92 Intake and Output 08/04/18 08/05/18 19:00 07:00 Intake Total 360 ml 60 ml Balance 360 ml 60 ml Intake Oral 360 ml IV Total 60 ml # Voids 2 1 Laboratory Tests 08/04/18 13:15: White Blood Count 11.6H, Red Blood Count 4.98, Hemoglobin 7.4L, Hematocrit 27.4L , Mean Corpuscular Volume 55L, Mean Corpuscular Hemoglobin 14.9L, Mean Corpuscular Hemoglobin Concent 27.1L, Red Cell Distribution Width 15.6H, Platelet Count 338, Mean Platelet Volume 6.6, Neutrophils (%) (Auto) , Lymphocytes (%) (Auto) , Monocytes (%) (Auto) , Eosinophils (%) (Auto) , Basophils (%) (Auto) , Differential Total Cells Counted 100, Neutrophils % ( Manual) 71, Lymphocytes % (Manual) 25, Monocytes % (Manual) 3, Eosinophils % ( Manual) 1, Basophils % (Manual) 0, Band Neutrophils 0, Platelet Estimate Adequate, Platelet Morphology See comment, Giant Platelets Rare, Polychromasia 2 +, Hypochromasia 3+, Microcytosis 3+, Tear Drop Cells Occasional, Sodium Level 136, Potassium Level 4.5, Chloride Level 104, Carbon Dioxide Level 26, Anion Gap 6, Blood Urea Nitrogen 17, Creatinine 0.9, Estimat Glomerular Filtration Rate > 60, Glucose Level 126H, Calcium Level 8.4L 08/05/18 04:00: White Blood Count 12.4H, Red Blood Count 5.11, Hemoglobin 8.3L, Hematocrit 29.3L , Mean Corpuscular Volume 57L, Mean Corpuscular Hemoglobin 16.2L, Mean Corpuscular Hemoglobin Concent 28.3L, Red Cell Distribution Width 19.5H, Platelet Count 320, Mean Platelet Volume 6.9, Neutrophils (%) (Auto) 60.6, Lymphocytes (%) (Auto) 31.7, Monocytes (%) (Auto) 6.3, Eosinophils (%) (Auto) 0.8, Basophils (%) (Auto) 0.6, Sodium Level 138, Potassium Level 4.1, Chloride Level 104, Carbon Dioxide Level 27, Anion Gap 7, Blood Urea Nitrogen 16, Creatinine 1.0, Estimat Glomerular Filtration Rate > 60, Glucose Level 96, Calcium Level 8.2L Height (Feet): 5 Height (Inches): 2.00 Weight (Pounds): 320 General Appearance: no apparent distress EENT: TMs normal Neck: supple Cardiovascular: normal rate Respiratory/Chest: lungs clear Abdomen: non tender Extremities: non-tender Edema: 1+ Leg (L), 1+ Leg (R) Edema: mild edema Neurologic: no motor/sensory deficits Skin: warm/dry Castillo Berry MD Aug 05, 2018 06:42
--- NOTE | 2018-08-05 07:25 | Discharge Instructions ---
Discharge Instructions Discharge Instructions Follow up with: [facility] - to make an appt. Ask for gynecology referral Diet: cardiac 2 GM Na, low fat, low fat Resume Normal Activity?: Yes Activity: resume normal activities For Congestive Heart Failure Reminder Report to your physician any weight gain of 5 pounds or more in one week. Kwan Thakur M.D. Aug 05, 2018 07:25
[2018-08-05 08:00] VITALS: BP 112/61
--- NOTE | 2018-08-05 08:51 | General Surgery Progress Note ---
General Surgery-Progress Note Subjective Additional Comments no acute events. resting comfortable. has Left arm PICC line now with good venous access. Objective Last 24 Hour Vital Signs Date Time Temp Pulse Resp B/P (MAP) Pulse Ox O2 Delivery O2 Flow Rate FiO2 08/05/18 08:00 97.2 95 20 112/61 (78) 98 97.2 08/05/18 07:47 98 18 98 Nasal Cannula 1.0 24 08/05/18 07:40 Nasal Cannula 1.0 24 08/05/18 07:40 98 20 96 Nasal Cannula 1.0 24 08/05/18 07:40 96 Nasal Cannula 1.0 24 08/05/18 04:09 94 08/05/18 04:00 97.0 97 20 122/76 (91) 98 97.0 08/05/18 01:29 Nasal Cannula 1.0 24 08/05/18 01:29 Nasal Cannula 1.0 24 08/05/18 00:13 96 08/05/18 00:00 98.0 98 20 125/76 (92) 98 98.0 08/04/18 21:00 Venturi Mask 10.0 Nasal Cannula 2.0 08/04/18 20:33 95 111/63 08/04/18 20:08 95 20 100 Nasal Cannula 1.0 24 08/04/18 20:01 Nasal Cannula 3.0 32 08/04/18 20:00 95 Nasal Cannula 3.0 32 08/04/18 20:00 98.0 97 20 111/63 (79) 96 98.0 08/04/18 20:00 97 08/04/18 19:59 95 20 95 Nasal Cannula 3.0 32 08/04/18 16:00 91 08/04/18 16:00 97.2 93 18 124/84 (97) 98 97.2 08/04/18 13:14 Nasal Cannula 3.0 32 08/04/18 13:14 Nasal Cannula 3.0 32 08/04/18 12:00 96 08/04/18 12:00 97.2 100 20 120/68 (85) 97 97.2 08/04/18 09:00 Venturi Mask 10.0 I&O Intake and Output 08/04/18 08/05/18 19:00 07:00 Intake Total 360 ml 60 ml Balance 360 ml 60 ml Intake Oral 360 ml IV Total 60 ml # Voids 2 1 Dressing: dry Wound: clean, dry Drains: none Cardiovascular: RSR Respiratory: clear, decreased breath sounds Abdomen: soft, non-tender, present bowel sounds Extremities: other Laboratory Tests Test 08/04/18 13:15 08/05/18 04:00 White Blood Count 11.6 K/UL (4.8-10.8) H 12.4 K/UL (4.8-10.8) H Red Blood Count 4.98 M/UL (4.20-5.40) 5.11 M/UL (4.20-5.40) Hemoglobin 7.4 G/DL (12.0-16.0) L 8.3 G/DL (12.0-16.0) L Hematocrit 27.4 % (37.0-47.0) L 29.3 % (37.0-47.0) L Mean Corpuscular Volume 55 FL (80-99) L 57 FL (80-99) L Mean Corpuscular Hemoglobin 14.9 PG (27.0-31.0) L 16.2 PG (27.0-31.0) L Mean Corpuscular Hemoglobin Concent 27.1 G/DL (32.0-36.0) L 28.3 G/DL (32.0-36.0) L Red Cell Distribution Width 15.6 % (11.6-14.8) H 19.5 % (11.6-14.8) H Platelet Count 338 K/UL (150-450) 320 K/UL (150-450) Mean Platelet Volume 6.6 FL (6.5-10.1) 6.9 FL (6.5-10.1) Neutrophils (%) (Auto) % (45.0-75.0) 60.6 % (45.0-75.0) Lymphocytes (%) (Auto) % (20.0-45.0) 31.7 % (20.0-45.0) Monocytes (%) (Auto) % (1.0-10.0) 6.3 % (1.0-10.0) Eosinophils (%) (Auto) % (0.0-3.0) 0.8 % (0.0-3.0) Basophils (%) (Auto) % (0.0-2.0) 0.6 % (0.0-2.0) Differential Total Cells Counted 100 Neutrophils % (Manual) 71 % (45-75) Lymphocytes % (Manual) 25 % (20-45) Monocytes % (Manual) 3 % (1-10) Eosinophils % (Manual) 1 % (0-3) Basophils % (Manual) 0 % (0-2) Band Neutrophils 0 % (0-8) Platelet Estimate Adequate Platelet Morphology See comment Giant Platelets Rare Polychromasia 2+ Hypochromasia 3+ Microcytosis 3+ Tear Drop Cells Occasional Sodium Level 136 MMOL/L (136-145) 138 MMOL/L (136-145) Potassium Level 4.5 MMOL/L (3.5-5.1) 4.1 MMOL/L (3.5-5.1) Chloride Level 104 MMOL/L (98-107) 104 MMOL/L (98-107) Carbon Dioxide Level 26 MMOL/L (21-32) 27 MMOL/L (21-32) Anion Gap 6 mmol/L (5-15) 7 mmol/L (5-15) Blood Urea Nitrogen 17 mg/dL (7-18) 16 mg/dL (7-18) Creatinine 0.9 MG/DL (0.55-1.30) 1.0 MG/DL (0.55-1.30) Estimat Glomerular Filtration Rate > 60 mL/min (>60) > 60 mL/min (>60) Glucose Level 126 MG/DL (74-106) H 96 MG/DL (74-106) Calcium Level 8.4 MG/DL (8.5-10.1) L 8.2 MG/DL (8.5-10.1) L Plan Problems: (1) Anemia Assessment & Plan: Patient seen, chart reviewed, patient examined. Labs noted Initially seen and evaluated on 08/02. monitored given stable. fortunately today H/H stable and no longer trending down. Peripheral line is very difficult and unsuccessful on multiple attempts next option during weekend is central line but would reserve for urgent need. fortunately currently stable and can continue to manage with oral medications PICC inserted and functional thank you for allowing me to participate in patients care. Ever Guillen Aug 05, 2018 08:51
[2018-08-05] MEDS: Metoprolol 25mg tab ORAL SCH (08:58)
[2018-08-05] MEDS: Aspirin Baby 81mg ORAL SCH (08:58)
[2018-08-05] MEDS: Docusate 100mg cap ORAL SCH (08:58)
[2018-08-05] MEDS: medroxyPROGESTERone 10mg tab ORAL SCH (08:58)
[2018-08-05] MEDS: Heparin 5000 units/ml inj SUBQ SCH ×2 (09:01→13:35)
[2018-08-05 12:00] VITALS: BP 125/74
--- NOTE | 2018-08-05 12:49 | GI Progress Note ---
Assessment/Plan Problems: (1) Menses regular with excessive bleeding ICD Codes: N92.0 - Excessive and frequent menstruation with regular cycle SNOMED: 140700248 (2) Nausea & vomiting ICD Codes: R11.2 - Nausea with vomiting, unspecified SNOMED: 88724470 (3) Electrolyte disturbance ICD Codes: E87.8 - Other disorders of electrolyte and fluid balance, not elsewhere classified SNOMED: 760797511 (4) Cannabis abuse ICD Codes: F12.10 - Cannabis abuse, uncomplicated SNOMED: 61922238 (5) Anemia ICD Codes: D64.9 - Anemia, unspecified SNOMED: 120585554 (6) Vaginal discharge ICD Codes: N89.8 - Other specified noninflammatory disorders of vagina SNOMED: 240549968 Status: unchanged Status Narrative Discussed with Dr. Mchugh. Assessment/Plan Assessment - Iron deficiency anemia, likely menstrual etiology - Morbid obesity - Edema - Marijuana use Recommendations - IV Fe - check stool OB once menses over - zofran prn - prn transfusions - fu labs The patient was seen and examined at bedside and all new and available data was reviewed in the patients chart. I agree with the above findings, impression and plan. (Patient seen earlier today. Signature stamp does not reflect patient encounter time.). - Berny Mchugh MD Subjective Subjective SOB nausea Objective Last 24 Hour Vital Signs Date Time Temp Pulse Resp B/P (MAP) Pulse Ox O2 Delivery O2 Flow Rate FiO2 08/05/18 08:58 95 112/61 08/05/18 08:00 97.2 95 20 112/61 (78) 98 97.2 08/05/18 07:47 98 18 98 Nasal Cannula 1.0 08/05/18 07:40 Nasal Cannula 1.0 08/05/18 07:40 98 20 96 Nasal Cannula 1.0 08/05/18 07:40 96 Nasal Cannula 1.0 08/05/18 04:09 94 08/05/18 04:00 97.0 97 20 122/76 (91) 98 97.0 08/05/18 01:29 Nasal Cannula 1.0 24 08/05/18 01:29 Nasal Cannula 1.0 08/05/18 00:13 96 08/05/18 00:00 98.0 98 20 125/76 (92) 98 98.0 08/04/18 21:00 Venturi Mask 10.0 Nasal Cannula 2.0 08/04/18 20:33 95 111/63 08/04/18 20:08 95 20 100 Nasal Cannula 1.0 24 08/04/18 20:01 Nasal Cannula 3.0 32 08/04/18 20:00 95 Nasal Cannula 3.0 32 08/04/18 20:00 98.0 97 20 111/63 (79) 96 98.0 08/04/18 20:00 97 08/04/18 19:59 95 20 95 Nasal Cannula 3.0 32 08/04/18 16:00 91 08/04/18 16:00 97.2 93 18 124/84 (97) 98 97.2 08/04/18 13:14 Nasal Cannula 3.0 32 08/04/18 13:14 Nasal Cannula 3.0 32 Intake and Output 08/04/18 08/05/18 18:59 06:59 Intake Total 360 ml 60 ml Balance 360 ml 60 ml Intake Oral 360 ml IV Total 60 ml # Voids 2 1 Laboratory Tests Test 08/04/18 13:15 08/05/18 04:00 White Blood Count 11.6 K/UL (4.8-10.8) H 12.4 K/UL (4.8-10.8) H Red Blood Count 4.98 M/UL (4.20-5.40) 5.11 M/UL (4.20-5.40) Hemoglobin 7.4 G/DL (12.0-16.0) L 8.3 G/DL (12.0-16.0) L Hematocrit 27.4 % (37.0-47.0) L 29.3 % (37.0-47.0) L Mean Corpuscular Volume 55 FL (80-99) L 57 FL (80-99) L Mean Corpuscular Hemoglobin 14.9 PG (27.0-31.0) L 16.2 PG (27.0-31.0) L Mean Corpuscular Hemoglobin Concent 27.1 G/DL (32.0-36.0) L 28.3 G/DL (32.0-36.0) L Red Cell Distribution Width 15.6 % (11.6-14.8) H 19.5 % (11.6-14.8) H Platelet Count 338 K/UL (150-450) 320 K/UL (150-450) Mean Platelet Volume 6.6 FL (6.5-10.1) 6.9 FL (6.5-10.1) Neutrophils (%) (Auto) % (45.0-75.0) 60.6 % (45.0-75.0) Lymphocytes (%) (Auto) % (20.0-45.0) 31.7 % (20.0-45.0) Monocytes (%) (Auto) % (1.0-10.0) 6.3 % (1.0-10.0) Eosinophils (%) (Auto) % (0.0-3.0) 0.8 % (0.0-3.0) Basophils (%) (Auto) % (0.0-2.0) 0.6 % (0.0-2.0) Differential Total Cells Counted 100 Neutrophils % (Manual) 71 % (45-75) Lymphocytes % (Manual) 25 % (20-45) Monocytes % (Manual) 3 % (1-10) Eosinophils % (Manual) 1 % (0-3) Basophils % (Manual) 0 % (0-2) Band Neutrophils 0 % (0-8) Platelet Estimate Adequate Platelet Morphology See comment Giant Platelets Rare Polychromasia 2+ Hypochromasia 3+ Microcytosis 3+ Tear Drop Cells Occasional Sodium Level 136 MMOL/L (136-145) 138 MMOL/L (136-145) Potassium Level 4.5 MMOL/L (3.5-5.1) 4.1 MMOL/L (3.5-5.1) Chloride Level 104 MMOL/L (98-107) 104 MMOL/L (98-107) Carbon Dioxide Level 26 MMOL/L (21-32) 27 MMOL/L (21-32) Anion Gap 6 mmol/L (5-15) 7 mmol/L (5-15) Blood Urea Nitrogen 17 mg/dL (7-18) 16 mg/dL (7-18) Creatinine 0.9 MG/DL (0.55-1.30) 1.0 MG/DL (0.55-1.30) Estimat Glomerular Filtration Rate > 60 mL/min (>60) > 60 mL/min (>60) Glucose Level 126 MG/DL (74-106) H 96 MG/DL (74-106) Calcium Level 8.4 MG/DL (8.5-10.1) L 8.2 MG/DL (8.5-10.1) L Height (Feet): 5 Height (Inches): 2.00 Weight (Pounds): 320 General Appearance: WD/WN, no apparent distress, alert, morbidly obese Cardiovascular: normal rate Respiratory/Chest: normal breath sounds, no respiratory distress Abdominal Exam: normal bowel sounds, non tender, soft Extremities: normal range of motion, non-tender Jacek Joiner NP Aug 05, 2018 12:49
[2018-08-05] MEDS ORDERED: FERROUS SULFAT325 MG ORAL (14:14)
[2018-08-05] MEDS ORDERED: MEDROXYPROGESTE10 MG PO (14:14)
--- NOTE | 2018-08-05 15:02 | Cardiology Progress Note ---
Assessment/Plan Assessment/Plan 1. Troponin leak. The level is low and flat 0.2, 0.1,0.08. Likely due to demand ischemia in view of her severe anemia. Echocardiogram showed normal left ventricular systolic function. ECG nonspecific T wave abnormality She is only 27 years old. Urine toxicology screen positive for marijuana. Her D-dimer is evaluated at 3.14, but lower extremity duplex is negative for DVT. CT angio couldn't be done as [facility] ER scanner has a weight limit of 675 lbs and a circumference max of 72 in. She is 78 in 2. Severe anemia Hb [address] chest abdomen and pelvis could not be done due to size. CARTRIDGE GAUGER evaluated 3. Morbid obesity DW RN Subjective Subjective Alert in NAD. Has minimal vaginal bleeding. DC planning home on progress. Objective Last 24 Hour Vital Signs Date Time Temp Pulse Resp B/P (MAP) Pulse Ox O2 Delivery O2 Flow Rate FiO2 08/05/18 13:47 97 18 98 Nasal Cannula 1.0 08/05/18 13:39 101 20 95 Nasal Cannula 1.0 08/05/18 12:00 97.2 95 20 125/74 (91) 94 97.2 08/05/18 09:00 Nasal Cannula 2.0 Nasal Cannula 2.0 08/05/18 08:58 95 112/61 08/05/18 08:00 97.2 95 20 112/61 (78) 98 97.2 08/05/18 07:47 98 18 98 Nasal Cannula 1.0 08/05/18 07:40 Nasal Cannula 1.0 08/05/18 07:40 98 20 96 Nasal Cannula 1.0 08/05/18 07:40 96 Nasal Cannula 1.0 08/05/18 04:09 94 08/05/18 04:00 97.0 97 20 122/76 (91) 98 97.0 08/05/18 01:29 Nasal Cannula 1.0 24 08/05/18 01:29 Nasal Cannula 1.0 08/05/18 00:13 96 08/05/18 00:00 98.0 98 20 125/76 (92) 98 98.0 08/04/18 21:00 Venturi Mask 10.0 Nasal Cannula 2.0 08/04/18 20:33 95 111/63 08/04/18 20:08 95 20 100 Nasal Cannula 1.0 24 08/04/18 20:01 Nasal Cannula 3.0 32 08/04/18 20:00 95 Nasal Cannula 3.0 32 08/04/18 20:00 98.0 97 20 111/63 (79) 96 98.0 08/04/18 20:00 97 08/04/18 19:59 95 20 95 Nasal Cannula 3.0 32 08/04/18 16:00 91 08/04/18 16:00 97.2 93 18 124/84 (97) 98 97.2 Intake and Output 08/04/18 08/05/18 19:00 07:00 Intake Total 360 ml 60 ml Balance 360 ml 60 ml Intake Oral 360 ml IV Total 60 ml # Voids 2 1 Laboratory Tests Test 08/05/18 04:00 White Blood Count 12.4 K/UL (4.8-10.8) H Red Blood Count 5.11 M/UL (4.20-5.40) Hemoglobin 8.3 G/DL (12.0-16.0) L Hematocrit 29.3 % (37.0-47.0) L Mean Corpuscular Volume 57 FL (80-99) L Mean Corpuscular Hemoglobin 16.2 PG (27.0-31.0) L Mean Corpuscular Hemoglobin Concent 28.3 G/DL (32.0-36.0) L Red Cell Distribution Width 19.5 % (11.6-14.8) H Platelet Count 320 K/UL (150-450) Mean Platelet Volume 6.9 FL (6.5-10.1) Neutrophils (%) (Auto) 60.6 % (45.0-75.0) Lymphocytes (%) (Auto) 31.7 % (20.0-45.0) Monocytes (%) (Auto) 6.3 % (1.0-10.0) Eosinophils (%) (Auto) 0.8 % (0.0-3.0) Basophils (%) (Auto) 0.6 % (0.0-2.0) Sodium Level 138 MMOL/L (136-145) Potassium Level 4.1 MMOL/L (3.5-5.1) Chloride Level 104 MMOL/L (98-107) Carbon Dioxide Level 27 MMOL/L (21-32) Anion Gap 7 mmol/L (5-15) Blood Urea Nitrogen 16 mg/dL (7-18) Creatinine 1.0 MG/DL (0.55-1.30) Estimat Glomerular Filtration Rate > 60 mL/min (>60) Glucose Level 96 MG/DL (74-106) Calcium Level 8.2 MG/DL (8.5-10.1) L Objective HEAD AND NECK: No JVD LUNGS: Clear. CARDIOVASCULAR: Regular S1 and S2 with no gallop or murmur. ABDOMEN: Soft and morbidly obese. EXTREMITIES: No pitting edema. Bunny Arnett MD Aug 05, 2018 15:02
[2018-08-05 16:00] VITALS: BP 122/68
[2018-08-05] MEDS ORDERED: Tubing IV Blood Pump IV ONE (16:27)
[2018-08-05] MEDS ORDERED: NS 275ml ONE (16:27)
--- NOTE | 2018-08-08 07:29 | Discharge Summary ---
Katy Moore TANKAGE SUPERVISOR 08/08/18 0729: Discharge Summary Discharge Summary _ DATE OF ADMISSION: 07/30/2018 DATE OF DISCHARGE: 08/05/2018 REASON FOR ADMISSION: 27 years old female with past medical history of morbid obesity, presented to emergency department with complaint of chest pain and shortness of breath. Patient reported substernal chest pain radiating to the back with associated shortness of breath, worse with activity in the past few days. No orthopnea, no paroxysmal nocturnal dyspnea. Patient reported increased bilateral lower extremity swelling and weight gain. Patient also noted increased cough. No fever, no chills . Vital signs reveal tachycardia and tachypnea with heart rate 144 respiratory rate 29. Laboratory workup revealed mild leukocytosis WBC 11.7. Hemoglobin 8.0 hematocrit 29.7. MCV of 55. D-dimer 3.14. BUN 7 ,creatinine 0.4. CK 103. Troponin 0.248. Pro BNP 102. EKG revealed sinus tachycardia no acute ischemic changes. Urinalysis revealed evidence of hematuria. test was negative. Urine toxicology screen + marijuana Chest x-ray revealed no acute cardiopulmonary pathology. Patient admitted with diagnosis of chest pain rule out acute coronary syndrome; shortness of breath with elevated d-dimer,rule out DVT PE ; severe anemia; morbid obesity. CONSULTANTS: patient services clerk Dr. Arnett pulmonary Dr. Sutherland GI specialist Dr. Hernadez slip cover operator/oncologist Dr. Berry VP OUTCOMES Dr. Barber psychiatrist Dr. Owen [facility]SE: Patient admitted to telemetry floor. Cardiology consulted. Patient was followed up with serial troponin. Troponin trending down , and last troponin negative. No acute ischemic changes on ECG. Echocardiogram revealed preserved ejection fraction of 65% and evidence of severe pulmonary hypertension. Patient started on antiplatelet therapy with aspirin. Lipid panel was stable. BP remained stable. TSH was within normal limits. Per cardiology , patient likely had NSTEMI type II /demand ischemia in setting of severe anemia. Teaching Artist closely followed. CTA of the chest to rule out PE was not able to be done in this facility due to patient's weight. Venous duplex bilateral lower extremity was negative. Patient started on heparin subcutaneous 3 times a day. No evidence of right heart strain on TTE . Supplemental oxygen provided as needed to keep pulse oximetry above 92% , pulmonary toilet provided as needed. Teaching Artist recommended sleep study as outpatient. Transvaginal pelvic ultrasound revealed evidence of complex free fluid within the pelvis, presumptively blood/hemoperitoneum. In the context of a negative test, the findings were most probably due to ruptured ovarian cyst. Unremarkable uterus. Patient with evidence of intermittent heavy vaginal bleeding and ultrasound findings were concerning for ruptured ovarian cyst. VP OUTCOMES specialist seen and evaluated patient. Per VP OUTCOMES specialist, bleeding was likely anovulatory but could not rule out hyperplasia, given her risk factors such as nulliparity and morbid obesity. Given long-standing history of abnormal uterine bleeding , STRATEGY ANALYST specialist recommended endometrial biopsy which could be done as an outpatient. Patient started on Provera 10 mg daily for control of bleeding. For long-term control of bleeding , STRATEGY ANALYST specialist recommended Mirena IUD. Patient was recommended to follow-up with gluing machine operator automatic as outpatient for further management of abnormal uterine bleeding. Patient did not present with typical clinical picture of ruptured ovarian cyst( no acute onset of pelvic pain, no abdominal pain ,no rebound on examination). However anemia and ultrasound findings were concerning for possible ovarian cust rupture. STRATEGY ANALYST specialist recommended expectant management , which was appropriate in this situation. Surgical management was not indicated. Hemoglobin and hematocrit were closely monitored. Anemia workup was consistent with anemia of iron deficiency. Patient started on the IV Venofer. Patient also required transfusion of 1 unit of packed red blood cells. Prior to discharge hemoglobin 8.3 hematocrit 29.3. Bobbin Dumper closely followed. GI specialist followed and recommended check stool for occult blood when no further vaginal bleeding. Renal parameters and electrolytes were closely monitored. Electrolytes were corrected as needed. Supportive care provided . Antiemetics provided as needed . Patient was counseled on diet, exercise and need to lose weight. Patient clinically stabilized and was ready for discharge home : no further chest pain , pulse ozimetry stable on room air, stable baseline hemoglobin and hematocrit, no further bleeding . FINAL DIAGNOSES: Atypical chest pain with elevated troponin Likely NSTEMI type2/demand ischemia in setting of severe anemia Shortness of breath secondary to severe anemia Acute hypoxemic respiratory failure Severe iron deficiency anemia secondary to heavy vaginal bleeding/acute blood loss Possible ruptured ovarian cyst Morbid obesity Probable obstructive sleep apnea versus obesity hypoventilation syndrome Cannabis abuse DISCHARGE MEDICATIONS: See Medication Reconciliation list. DISCHARGE INSTRUCTIONS: Patient was discharged home Follow up with primary care provider in one week. follow up with as outpatient as VP OUTCOMES as recommended by STRATEGY ANALYST specialist I have been assigned to dictate discharge summary for this account. I was not involved in the patient's management. Kwan Thakur M.D. 08/10/18 2316: Discharge Summary Discharge Summary _ Pt seen and examined on day of discharge. Instructions and counseling provided. Katy Moore NP Aug 08, 2018 07:29 Kwan Thakur M.D. Aug 10, 2018 23:16
--- NOTE | 2018-08-08 14:21 | Cardiology Report ---
APPROVED REPORT EXAM: Two-dimensional and M-mode echocardiogram with Doppler and color Doppler. INDICATION Chest Pain M-Mode DIMENSIONS IVSd1.3 (0.7-1.1cm)Left Atrium (MM)3.6 (1.6-4.0cm) LVDd4.1 (3.5-5.6cm)Aortic Root2.8 (2.0-3.7cm) PWd1.3 (0.7-1.1cm)Aortic Cusp Exc.1.6 (1.5-2.0cm) LVDs2.5 (2.5-4.0cm) PWs1.3 cm Technically difficult study due to pts body habitat. Normal left ventricular chamber size, systolic function and wall motion to extent visualized. Left ventricular ejection fraction estimated to be 65 %. No evidence of left ventricular hypertrophy. Anterior Echo-free space, may be due to pericardial fat or effusion. All other cardiac chamber sizes are within normal limits. Mild focal aortic valve sclerosis with adequate cusp excursion. Mildly thickened mitral valve leaflets with normal excursion. Mild mitral annulus and aortic root calcification. Pulmonic valve not well visualized. Normal tricuspid valve structure. IVC at normal size with physiologic collapse. A color flow and spectral Doppler study was performed and revealed: Trace mitral regurgitation. Mitral inflow indicates normal left ventricular diastolic function. Moderate to severe tricuspid regurgitation. Tricuspid systolic velocities suggests peak right ventricular systolic pressure of 67 mmHg, consistent with severe pulmonary hypertension. Pulmonic regurgitation present.
--- NOTE | 2018-08-15 15:39 | Cardiology Report ---
APPROVED REPORT EKG Measurement Heart [id number] Sinus tachycardia Nonspecific T wave abnormality Abnormal ECG
== END 2018-08-05 17:28 | disposition home or self-care (01) | DRG 190 ==
LOC: EMR 21:34 → 2E 23:09 → EDBEDREQ 23:47 → 2E 08-01 17:14
PROC: 02HV33Z Insertion of Infusion Device into Superior Vena Cava, Percutaneous Approach (ICD-10-PCS; principal; 2018-08-04)
PROC: 30233N1 Transfusion of Nonautologous Red Blood Cells into Peripheral Vein, Percutaneous Approach (ICD-10-PCS; 2018-08-04)
DX: I21.A1 Myocardial infarction type 2 (principal); J96.01 Acute respiratory failure with hypoxia; I27.20 Pulmonary hypertension, unspecified; E87.8 Other disorders of electrolyte and fluid balance, not elsewhere classified; E66.2 Morbid (severe) obesity with alveolar hypoventilation; D62 Acute posthemorrhagic anemia; Z68.45 Body mass index [BMI] 70 or greater, adult; R07.89 Other chest pain; F12.10 Cannabis abuse, uncomplicated; N93.9 Abnormal uterine and vaginal bleeding, unspecified; Z59.0 Homelessness; N89.8 Other specified noninflammatory disorders of vagina; R60.9 Edema, unspecified; N83.209 Unspecified ovarian cyst, unspecified side; G47.33 Obstructive sleep apnea (adult) (pediatric)
CPT/HCPCS: 36415; 36569; 36600; 71045; 76830; 76856; 76937; 80048; 80053; 80061; 80307; 81003; 81025; 82550; 82553; 82607; 82728; 82746; 82803; 83036; 83540; 83550; 83690; 83735; 83880; 84165; 84443; 84484; 85007; 85025; 85044; 85379; 85610; 86850; 86900; 86901; 86920; 93005; 93306; 93970; 94640; 94664; 94760; 96361; 96365; 96375; 99285; J2405; J7620